=== PATIENT | male | born 1940 | race Caucasian/White ===

== ENCOUNTER 2018-06-06 10:06 | Emergency (ER) | payer OTHER, SELFPAY ==
[2018-06-06] VITALS (54 sets, daily range): BP systolic 95–162; BP diastolic 51–96; PULSE 49–79; RESP 8–24; TEMP 36.1–36.8; O2SAT 85–97
--- NOTE | 2018-06-06 12:06 | DI.RAD_ITS ---
SYMPTOMS/DIAGNOSIS: DYSPNEA CHEST X-RAY, PA AND LATERAL: Comparison is 10/29/17. The heart size and pulmonary vasculature are within normal limits. Sternal wires are in place. The lungs are free of infiltrates, effusions or pneumothoraces. Degenerative changes are seen in the spine. The lungs appear hyperinflated suggesting underlying COPD. There are again seen postsurgical changes of a right shoulder replacement. IMPRESSION: No acute pulmonary process.
--- NOTE | 2018-06-06 12:26 | ED.GENADUL_ITS ---
Discharge Plan Disposition Patient Disposition: HOME Condition: Fair Discharge Details Chief Complaint: SOB Clinical Impression: Chest pain Primary Care Provider: Sumit Florian ED Provider: Sofie Araujo Home Meds and New Rx's Prescriptions: Continue multivitamin [Daily Multi-Vitamin] 1 EACH tablet 1 tab PO DAILY RF: 0 aspirin [Ecotrin Low Strength] 81 MG tablet,delayed release (DR/EC) 81 tab PO DAILY RF: 0 nitroglycerin [Nitrostat] 0.4 MG tablet, sublingual 1 tab Sublingual PRN Qty: 25 RF: 4 mometasone [Elocon] 15 GM cream 1 paula Topical DAILY PRNQty: 1 RF: 0 atorvastatin 80 MG tablet 80 mg PO DAILY 90 Days Qty: 90 RF: 3 metoprolol tartrate 50 MG tablet 1 tab PO DAILY 90 Days Qty: 90 RF: 3 mometasone [Elocon] 15 GM cream 60 gm Topical QD PRN 90 Days Qty: 3 RF: 3 escitalopram oxalate [Lexapro] 10 MG tablet 1 tab PO DAILY 90 Days Qty: 90 RF: 3 vitamin B complex [Bal B-50] 1 EACH tablet 1 tab PO DAILY RF: 0 cholecalciferol (vitamin D3) 1,000 UNIT tablet 1,000 unit PO DAILY RF: 0 Discharge Instructions Instructions: Chest Pain (ED) Additional Instructions: Encourage hydration. Please take medication as previously prescribed. Please follow instructions given by respiratory care for Zio patch. Please follow-up with primary care this week for reevaluation. Primary care will contact you with appointment for the upcoming stress test. If you develop fevers/chills, chest pain, shortness of breath or other new/worsening symptoms please seek care urgently once again. Referrals: Sumit Florian [Primary Care Provider] - ([phone]) Discharge Data Discharge Date/Time-TO BE ENTERED AT DEPARTURE: 06/06/18 18:04 Medical Decision Making <Alessandro Brian NP - Last Filed: 06/07/18 09:43> Patient presenting to the emergency department for chief complaint of shortness of breath. Patient states that this occurred 2 times this morning 1 going upstairs and one with taking out the trash. Patient states that these episodes lasted only a couple minutes but were similar in nature to when he previously had to have a bypass done and cardiac catheterization. Patient denies any pain or discomfort, syncope, or irregular heartbeats. Physical exam is unremarkable and shows no cardiac findings, no pedal edema, no bruits, normal lung sounds throughout. There is concern for possible cardiac nature given patient's complaint and history so plan to perform labs, EKG, and chest x-ray. Review of initial EKG with Dr. Loida Caceres shows right bundle branch block but otherwise is nondiagnostic. Given that patient is asymptomatic I do not feel that there are any emergent interventions needed patient was given 2 additional chewable aspirin to have total dose of 324 taken today. Review of initial labs show a leukocytosis and elevation of BNP but negative troponin and otherwise nondiagnostic labs. Patient reassessed and has no change in symptoms and remains asymptomatic. Plan to check delta troponin and repeat EKG along with continue to monitor patient. Patient signed out to Kristi Araujo review of second troponin and repeat EKG with plan to have patient have stress testing performed within 72 hours if troponin is negative and close follow-up with primary care or cardiology. <REGI Floyd - Last Filed: 06/06/18 18:03> Care signed out to myself by Alessandro Brian NP with repeat troponin and EKG pending. Patient initially presented with chief complaint of shortness of breath which she reports lasted for approximately half a minute. During each episodes, patient was exertion, one being when going up the stairs and another with collecting garbage. Patient does have history of myocardial infarction, stent placement in 2010. 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 Does not have any follow-up with cardiology. Patient is not anticoagulated. He denies any palpitations. Did not have any chest pain. No nausea or vomiting. States he is otherwise been feeling well. Denies any fevers or chills. Repeat EKG was reviewed by Dr. Mantilla. Patient is noted to have a right bundle branch block but this is unchanged from previous, last was dated 2017. Patient does have multiple ectopic beats. No acute changes noted to suggest ischemic changes peer Repeat troponin remains stable at less than 0.02 Discussed these findings with the patient and his . I did reevaluate the patient. It was noted on the laboratory evaluation the patient did have elevated white count, however this is typical for the patient upon review of historical values. 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 BNP was also noted to be elevated at 818 and this is not been elevated previously. Patient has not been hypoxic, tachycardic. He has no calf tenderness, no lower extremity edema. Patient appears otherwise well at this time. He reports he is been completely asymptomatic since being here. Is requesting discharge at this time. I have ordered a Zio patch and have asked for a stress test to be completed in the next 72 hours. Patient will follow up with his primary care at the end of the week for reevaluation. He was given strict return precautions. Patient reports he lives locally and is able to return with any new or worsening symptoms. All of his questions and concerns were addressed and he is in agreement this plan. HPI <Alessandro Brian NP - Last Filed: 06/07/18 09:43> General Mode of arrival: ambulatory . Date/Time Provider Initiated Documentation: 06/06/18 10:25 . Limitations to Documentation: no limitations . Information obtained by: patient and RN notes reviewed . History of Present Illness 77 year old M presents to the emergency department with the chief complaint of difficulty breathing, described as moderate, Quality is described as other ( tightness), and is localized to the chest. 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 No relieving factors improve symptom(s), Patient notes no other symptoms.. Patient did receive the following treatments prior to arrival, none Related Data Home Medications Medication Instructions Recorded Confirmed aspirin [Ecotrin Low Strength] 81 tab PO DAILY tab-cap 11/30/12 06/06/18 multivitamin [Daily Multi-Vitamin] 1 tab PO DAILY 11/30/12 06/06/18 cholecalciferol (vitamin D3) 1,000 unit PO DAILY 07/03/14 06/06/18 vitamin B complex [Bal B-50] 1 tab PO DAILY 07/03/14 06/06/18 nitroglycerin [Nitrostat] 1 tab SUBLINGUAL PRN #25 tab-cap 08/18/16 06/06/18 mometasone [Elocon] 1 paula TOPICAL DAILY PRN #1 tube 02/23/17 06/06/18 atorvastatin 80 mg PO DAILY 90 Days #90 tab-cap 09/28/17 06/06/18 escitalopram oxalate [Lexapro] 1 tab PO DAILY 90 Days #90 tab-cap 09/28/1706/06 metoprolol tartrate 1 tab PO DAILY 90 Days #90 tab-cap 09/28/17 06/06/18 mometasone [Elocon] 60 gm TOPICAL QD PRN 90 Days #3 09/28/17 06/06/18 applic Previous Rx's Medication Instructions Recorded atorvastatin 80 mg PO DAILY 90 Days #90 tab-cap 09/28/17 escitalopram oxalate [Lexapro] 1 tab PO DAILY 90 Days #90 tab-cap 09/28/17 metoprolol tartrate 1 tab PO DAILY 90 Days #90 tab-cap 09/28/17 mometasone [Elocon] 60 gm TOPICAL QD PRN 90 Days #3 09/28/17 applic Allergies Allergy/AdvReac Type Severity Reaction Status Date / Time pneumococcal vaccine Allergy Intermediate Local Unverified 06/06/18 10:16 Rash, SOB General Stated Complaint: SOB ANN: 3 Review of Systems <Alessandro Brian NP - Last Filed: 06/07/18 09:43> Constitutional Denies body ache(s), Denies chills and Denies fever(s) Cardiovascular Denies chest pain, Denies syncope and Reports dyspnea Respiratory Reports dyspnea Gastrointestinal Denies abdominal pain, Denies nausea and Denies vomiting Integumentary/Breasts Denies rash Neurologic Denies confusion, Denies syncope and Denies sensory deficit Psychiatric Denies confusion Exam <Alessandro Brian NP - Last Filed: 06/07/18 09:43> Const General: cooperative, no acute distress and not ill appearing Orientation: alert, awake and oriented x3 HENMT Mouth: moist mucous membranes Resp Effort & Inspection: normal respiratory effort, able to speak in complete sentences and no respiratory distress Auscultation: clear to auscultation bilaterally Cardio Jugular venous pressure: no JVD Palpation: normal PMI Rate: regular rate Rhythm: regular rhythm Heart Sounds: S1 normal, S2 normal, normal S1 and S2, no click, no gallops, no murmurs and no rubs Bruits: no abdominal aortic bruits and no carotid bruits Pulses: radial pulses present bilaterally 2+ Skin General skin exam: no rashes or lesions noted Neuro General: alert, awake, oriented x3, moves all extremities and no focal motor deficits Sensory Exam: no sensory deficits noted Extrem General: no pedal edema Course <Alessandro Brian NP - Last Filed: 06/07/18 09:43> Vital Signs Temperature 36.1 C L 06/06/18 10:14 Pulse 52 L 06/06/18 10:14 Respiratory Rate 16 06/06/18 10:14 Blood Pressure 100/51 L 06/06/18 10:14 Pulse Oximetry 95 06/06/18 10:14 Temperature 36.8 C 06/06/18 11:45 Temperature Source Temporal Artery Scan 06/06/18 11:45 Pulse 57 L 06/06/18 11:45 Respiratory Rate 16 06/06/18 11:45 Respiratory Effort 06/06/18 10:14 Blood Pressure 119/72 06/06/18 11:45 Blood Pressure Position Sitting 06/06/18 10:14 Pulse Oximetry 94 L 06/06/18 11:45 Oxygen Delivery Method Room Air 06/06/18 11:45 Oxygen Flow Rate 0 06/06/18 11:45 Pain Level 0 06/06/18 11:45 Sign Out <Alessandro Brian NP - Last Filed: 06/07/18 09:43> Sign Out Data: Sign Out Comment: Signed out to Emma DELUNA pending serial troponin and EKG. Patient otherwise stable with no acute change in condition and denies any symptoms at this time. Plan to have patient stress test if serial troponin is negative and follow-up with primary care/cardiology Last updated by Alessandro Brian NP at 06/06/18 16:52
[2018-06-06 12:28] LABS: Abs Immature Grans 0.03 k/cumm (0.0-0.09); HCT 37.3 % (40.0-50.0); HGB 12.7 g/dL (13.5-17.5); Mean Corpuscular Hemoglobin 33.7 pg (27.0-33.0); Mean Corpuscular Volume 98.9 fL (80-95); Mean Platelet Volume 9.7 fL (8.0-11.0); Platelet Count 242 x1000/uL (130-400); RBC 3.77 m/cumm (4.50-6.00); RBC Distribution Width 14.7 % (11.8-14.1); White Blood Cell Count 15.84 k/cumm (4.4-10.8)
[2018-06-06 12:43] LABS: INR 1.1 (1.0-3.5); PTT Activated 23.5 sec (21.0-31.4); Prothrombin Time 10.9 sec (9.3-10.8)
[2018-06-06 12:53] LABS: ALT 25 U/L (12-78); AST 23 U/L (15-37); Albumin 3.3 g/dL (3.4-5.0); Alkaline Phosphatase 182 U/L (46-116); Anion Gap 6.3 mmol/L (3-11); BUN 23 mg/dL (7-18); Bilirubin, Total 1.7 mg/dL (0.2-1.0); CO2 28.7 mmol/L (21.0-32.0); CREATININE 1.16 mg/dL (0.70-1.30); Calcium 8.8 mg/dL (8.5-10.1); Chloride 103 mmol/L (98-107); Glucose 82 mg/dL (70-100); Magnesium 2.1 mg/dL (1.8-2.4); NT-proBNP 818 pg/mL; Potassium 4.2 mmol/L (3.5-5.1); Sodium 138 mmol/L (136-145)
[2018-06-06 12:56] LABS: Troponin I < 0.02 ng/mL (0.00-0.06)
[2018-06-06 13:06] LABS: Absolute Eosinophil Count 0.16 k/cumm (0.0-0.7); Absolute Lymphocyte Count 6.02 k/cumm (1.2-3.4); Absolute Monocyte Count 0.95 k/cumm (0.11-0.7); Absolute Neutrophil Count 8.71 k/cumm (1.2-6.7); Atypical Lymphocytes % 8; Diff Comment Manual Differential; RBC Morphology Normal
[2018-06-06 16:55] LABS: Troponin I < 0.02 ng/mL (0.00-0.06)
[2018-06-06] MEDS: Aspirin 81 MG CHEW 243 MG CH (17:17)
--- NOTE | 2018-06-29 10:24 | ZIOP_ITS ---
ZIO PATCH REPORT DATE OF DICTATION June 29, 2018 STUDY INDICATION Chest pain. REQUESTING PROVIDER Sumit Florian M.D. FINDINGS The patient was monitored for 13 days and 15 hours. The predominant underlying rhythm was sinus rhythm. Average heart rate 71 beats per minute, range 45 to 129 beats per minute. There was frequent ventricular ectopy, 10.2% PACs. There were 13 atrial runs, average heart rate 129 beats per minute, range 76 to 182 beats per minute. The longest episode lasted 41 seconds with an average heart rate of 106 beats per minute. There were occasional ventricular ectopy, 2.9% PVCs. There were 6 ventricular runs, average heart rat e 109 beats per minute, range 75 to 154 beats per minute. The longest episode lasted 6 beats with an average heart rate of 106 beats per minute. There was sinus bradycardia. There were no pauses greater than 3 seconds. There was no higher degree heart block. There were 10 patient events. All events correlated either with PACs or PVCs. FINAL INTERPRETATION Paroxysmal supraventricular tachycardia, asymptomatic. Frequent ectopy, at times symptomatic. Alfredo Lam M.D. KISHAN/tyler T - 06/29/2018
== END 2018-06-06 18:04 | disposition home or self-care (01) ==
PROVIDERS: Nurse Practitioner Family; Emergency Provider Physician Assistant; PCP Family Medicine
DX: R07.9 Chest pain, unspecified (principal); I25.10 Atherosclerotic heart disease of native coronary artery without angina pectoris; Z95.5 Presence of coronary angioplasty implant and graft; I10 Essential (primary) hypertension
CPT/HCPCS: 36415; 80053; 93005; 93225; 99284; 71046; 83735; 83880; 84484; 85025; 85610; 85730; 93010

== ENCOUNTER 2018-06-08 08:27 | Emergency (ER) | payer OTHER, SELFPAY ==
[2018-06-08] VITALS (26 sets, daily range): BP systolic 98–138; BP diastolic 63–77; PULSE 66–91; RESP 14–23; TEMP 36.5; O2SAT 88–95
--- NOTE | 2018-06-08 08:51 | DI.US_ITS ---
SYMPTOMS/DIAGNOSIS: RLE CALF PAIN DUPLEX VENOUS ULTRASOUND RIGHT LOWER EXTREMITY: Duplex evaluation of the deep venous system of the right lower extremity was performed according to the usual protocol. There is no evidence of deep venous thrombosis. Note is made of superficial thrombus in the greater saphenous vein extending from approximately 1.5 cm below the saphenofemoral junction to the distal portion of the vein. No bhakta's cyst identified. CONCLUSION: No DVT identified. Greater saphenous vein superficial thrombus noted which lies approximately 1.5 cm distal to the saphenofemoral junction.
--- NOTE | 2018-06-08 09:00 | ED.GENADUL_ITS ---
Discharge Plan Disposition Patient Disposition: HOME Condition: Improving Discharge Details Chief Complaint: GenMedical Clinical Impression: Saphenous vein thrombophlebitis Primary Care Provider: Sumit Florian ED Provider: Min Barba Home Meds and New Rx's Prescriptions: New apixaban [Eliquis] 5 mg tablet See Label Instructions .ROUTE .COMPLEX Qty: 30 RF: 0 Continue multivitamin [Daily Multi-Vitamin] 1 EACH tablet 1 tab PO DAILY RF: 0 aspirin [Ecotrin Low Strength] 81 MG tablet,delayed release (DR/EC) 81 tab PO DAILY RF: 0 nitroglycerin [Nitrostat] 0.4 MG tablet, sublingual 1 tab Sublingual PRN Qty: 25 RF: 4 mometasone [Elocon] 15 GM cream 1 paula Topical DAILY PRNQty: 1 RF: 0 atorvastatin 80 MG tablet 80 mg PO DAILY 90 Days Qty: 90 RF: 3 metoprolol tartrate 50 MG tablet 1 tab PO DAILY 90 Days Qty: 90 RF: 3 mometasone [Elocon] 15 GM cream 60 gm Topical QD PRN 90 Days Qty: 3 RF: 3 escitalopram oxalate [Lexapro] 10 MG tablet 1 tab PO DAILY 90 Days Qty: 90 RF: 3 vitamin B complex [Bal B-50] 1 EACH tablet 1 tab PO DAILY RF: 0 cholecalciferol (vitamin D3) 1,000 UNIT tablet 1,000 unit PO DAILY RF: 0 Discharge Instructions Instructions: Deep Venous Thrombosis (ED) Additional Instructions: You have a right leg blood clot in the Great Saphenous Vein just next to the SaphenoFemoral junction and may develop into a deep vein blood clot. Therefore, as we discussed, we will begin blood thinners. Please take the Eliquis as prescribed. Return if you develop chest pain, dark or bloody stools, bleeding in the urine, or any other acute concern. Please follow-up with Dr. Zayas as planned and you may need to discuss rescheduling stress test, which was canceled today, when you are therapeutic on the blood thinner. Medical Decision Making 77-year-old male presents from home with onset this morning of right medial calf discomfort, question swelling, concern for blood clot/DVT. He has no chest pain, no tachycardia, his exam is reassuring. He has been scheduled for outpatient stress test and is wearing a zio patch. Referred for usn of the lower extremity which reveals superficial thrombophlebitis at the proximal great saphenous vein, extending to the saphenofemoral junction. Therefore, I do feel he should be treated for DVT. Patient denies recent dark or bloody stools, no hematuria, no frequent falls. I feel he is a reasonable candidate for novel anticoagulant and will place on Eliquis. Case discussed with Dr Zayas's office with whom the patient has preplanned followup. He will need to reschedule stress test and today's stress was cancelled. Return precautions discussed with patient prior to discharge. HPI General Mode of arrival: ambulatory . Date/Time Provider Initiated Documentation: 06/08/18 08:28 . Limitations to Documentation: no limitations . Information obtained by: patient and family . History of Present Illness 77 year old M presents to the emergency department with the chief complaint of Right calf swelling, described as moderate, Quality is described as aching, and is localized to the right and lower extremity. Patient reports no radiation. and it has been constant. No relieving factors improve symptom(s) , No exacerbating factors reported . Patient notes no other symptoms.. HPI Narrative: Right lower extremity swelling at the anterior calf that the patient noticed this morning. He is scheduled for stress test today due to ongoing intermittent episodes of shortness of breath are primarily exertional. Is not of chest pain or palpitations. He has had no recent prolonged travel Related Data Home Medications Medication Instructions Recorded Confirmed aspirin [Ecotrin Low Strength] 81 tab PO DAILY tab-cap 11/30/12 06/08/18 multivitamin [Daily Multi-Vitamin] 1 tab PO DAILY 11/30/12 06/08/18 cholecalciferol (vitamin D3) 1,000 unit PO DAILY 07/03/14 06/08/18 vitamin B complex [Bal B-50] 1 tab PO DAILY 07/03/14 06/06/18 nitroglycerin [Nitrostat] 1 tab SUBLINGUAL PRN #25 tab-cap 08/18/16 06/06/18 mometasone [Elocon] 1 paula TOPICAL DAILY PRN #1 tube 02/23/17 06/08/18 atorvastatin 80 mg PO DAILY 90 Days #90 tab-cap 09/28/17 06/08/18 escitalopram oxalate [Lexapro] 1 tab PO DAILY 90 Days #90 tab-cap 09/28/1706/06 metoprolol tartrate 1 tab PO DAILY 90 Days #90 tab-cap 09/28/17 06/08/18 mometasone [Elocon] 60 gm TOPICAL QD PRN 90 Days #3 09/28/17 06/08/18 applic apixaban [Eliquis] See Label Instructions .ROUTE 06/08/18 .COMPLEX #30 tab Previous Rx's Medication Instructions Recorded atorvastatin 80 mg PO DAILY 90 Days #90 tab-cap 09/28/17 escitalopram oxalate [Lexapro] 1 tab PO DAILY 90 Days #90 tab-cap 09/28/17 metoprolol tartrate 1 tab PO DAILY 90 Days #90 tab-cap 09/28/17 mometasone [Elocon] 60 gm TOPICAL QD PRN 90 Days #3 09/28/17 applic apixaban [Eliquis] See Label Instructions .ROUTE 06/08/18 .COMPLEX #30 tab Allergies Allergy/AdvReac Type Severity Reaction Status Date / Time pneumococcal vaccine Allergy Intermediate Local Unverified 06/08/18 09:02 Rash, SOB General Stated Complaint: GenMedical ANN: 3 Review of Systems Review of Systems For systems reviewed and otherwise negative PFSH Family History Mother Cerebrovascular accident Father Heart disease Brother Neoplasm Medical History CAD (coronary artery disease) (Chronic) Social History Smoking/Tobacco Use Status: Former Tobacco Use Surgical History CARDIAC CATH Extraction of cataract (07/05/14) Repair of inguinal hernia Exam Narrative Exam Narrative: GEN: awake, alert, oriented 3. Pleasant, well groomed, interactive. HEAD: Normocephalic, atraumatic ENT: Mucous membranes moist, oropharynx unremarkable, External ear exam unremarkable EYES: PERRL, EOMI NECK: Full ROM, no KIEL, no menigismus CHEST/RESP: Nontender, clear to auscultation bilateral, no wheeze/rhonchi/rales CARDIOVASCULAR: RRR, no murmur, rub macrina. 2+ Rad pulse bilateral ABDOMEN: Soft, nontender, no mass. +Bowel sounds EXT: Full ROM, no rash. There is right medial calf focal tenderness overlying the medial gastroc and anterior plane. There is no posterior cords. No swelling or asymmetry. No edema Neuro: Grossly normal neurologic exam, conversant, interactive. Psych: Speech fluent, thoughts congruent, affect normal Course Vital Signs Temperature 36.5 C 06/08/18 08:35 Pulse 80 06/08/18 08:35 Respiratory Rate 14 06/08/18 08:35 Blood Pressure 138/63 06/08/18 08:35 Pulse Oximetry 95 06/08/18 08:35 Temperature 36.5 C 06/08/18 08:35 Pulse 80 06/08/18 08:35 Respiratory Rate 14 06/08/18 08:35 Blood Pressure 138/63 06/08/18 08:35 Blood Pressure Position Sitting 06/08/18 08:35 Pulse Oximetry 95 06/08/18 08:35 Oxygen Delivery Method Room Air 06/08/18 08:35 Oxygen Flow Rate 0 06/08/18 08:35 Pain Level 0 06/08/18 08:35 Comment 06/08/18 08:35
--- NOTE | 2018-06-08 11:05 | NUR.NOTE ---
Nursing Note: Patient states preference for using bathroom rather than using a urinal. 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
--- NOTE | 2018-06-08 12:23 | NUR.NOTE ---
Pt. is in ultrasound.
--- NOTE | 2018-06-08 13:29 | NUR.NOTE ---
In no distress, awaiting dispo.
== END 2018-06-08 13:43 | disposition home or self-care (01) ==
PROVIDERS: Emergency Provider Emergency Medicine; PCP Family Medicine
DX: I80.01 Phlebitis and thrombophlebitis of superficial vessels of right lower extremity (principal); I10 Essential (primary) hypertension
CPT/HCPCS: 99284; 93971

== ENCOUNTER 2018-06-15 00:08 | Outpatient (CLI) | payer OTHER, SELFPAY ==
--- NOTE | 2018-06-15 06:37 | MERGEMPI_ITS ---
*[facility]* *[facility]* [address] [place] [address] Myocardial Perfusion Imaging - SPECT Guzman protocol Date of study: 06/15/2018 *PATIENT PRESENTATION* Height: 177.8cm (70in) Blood Pressure: Weight: 98.2kg (216lb) BSA: 2.23m^2 Referring physician: Alfredo Lam Ordering physician: Sumit Florian Impressions: - Study suggests myocardial infarction, with minimal overall ischemia in the territory of the right coronary or the left circumflex coronary arteries. - Intermediate risk of cardiac events. Summary: 1. Myocardial perfusion imaging: There is a large sized, complete, fixed defect involving the inferior and inferolateral wall(s). This suggests large in the distribution of right coronary artery or the left circumflex coronary artery. Overall ischemia: minimal. 2. The calculated left ventricular ejection fraction after stress: 39%. LV global systolic function is moderately reduced. There is dyskinesis involving the inferior wall(s) of the left ventricle. 3. Stress ECG conclusions: The stress ECG is negative. Rare ventricular ectopy. 4. Baseline ECG: Normal sinus rhythm with right bundle branch block. There was an oldinferior myocardial infarction. Recommendations: Cardiology consult to discuss cardiac catheterization. This has been arranged for. Indication: R06.09. History: REASON FOR VISIT: PATIENT SEEN IN ER FOR COMPLAINTS OF EXERTIONAL DYSPNEA AND SCHEDULED FOR EXERCISE STRESS TEST ON 06/08/18. STRESS TEST NOT PERFORMED AT THIS TIME DUE TO CONCERNS BY PATIENT OF RIGHT MEDIAL CALF DISCOMFORT AND SWELLING. DIAGNOSED WITH SUPERFICIAL THROMBOPHLEBITIS OF RIGHT LEG IN EMERGENCY DEPARTMENT AND STARTED ON ELIQUIS BID. ZIOPATCH APPLIED IN ED BEFORE DISCARGE. MPI TREADMILL TEST 12/04/15: MYOCARDIAL INFARCTION IN THE TERRITORY OF THE RIGHT CORONARY ARTERY. LVEF 41%. STRESS ECG NEGATIVE, FREQUENT VENTRICULAR ECTOPY. PAST MEDICAL HISTORY: CORONARY ARTERY DISEASE. MYOCARDIAL INFARCTION 1998, S/P CARDIAC CATHETERIZATION. HYPERTENSION. HYPERLIPIDEMIA. FAMILY HISTORY: FATHER - HEART DISEASE. MOTHER - CEREBROVASCULAR ACCIDENT. SMOKING STATUS: FORMER, QUIT IN 1991. 32 PACK YEAR HISTORY. EXERCISE ROUTINE: NONE. Risk factors: Hypertension. Dyslipidemia. Cholesterol: 192mg/dl. HDL: 48mg/dl. LDL: 127mg/dl. Triglycerides: 86mg/dl. ALLERGIES: PNEUMOCOCCAL VACCINE. MEDICATIONS: ASPIRIN 81MG, DAILY. MULTIVITAMIN, DAILY. CHOLECALCIFEROL 1000 UNITS, DAILY. VITAMIN B COMPLEX 1 TAB, DAILY. NITROGLYCERIN SL, PRN. ATORVASTATIN 80MG, DAILY. ESCITALOPRAM OXALATE, DAILY. METOPROLOL TARTRATE, DAILY. APIXABAN 5 MG, DAILY. Imaging Technique: Protocol: Guzman protocol. Acquisition: Gated SPECT; 1 day - rest/stress. The patient was imaged in the supine position. Attenuation correction used. Isotope administration: - Rest. Tc[99m]-sestamibi. Dose: 9.9mCi. Injection time: 09:20 AM. Injection to stress time: 00:45. - Stress. Tc[99m]-sestamibi. Dose: 32mCi. Injection time: 11:25 AM. 1-2 min before end of exercise Baseline ECG: SINUS RHYTHM WITH RIGHT BUNDLE BRANCH BLOCK AND PREMATURE ATRIAL CONTRACTIONS. HEART RATE 64 BPM. SINUS RHYTHM, RIGHT BUNDLE BRANCH BLOCK, PREMATURE ATRIAL CONTRACTIONS. HEART RATE 64 BPM. Normal sinus rhythm with right bundle branch block. There was an oldinferior myocardial infarction. Stress protocol: + +---+ + + !Stage !HR !BP (mmHg) !Comments ! + +---+ + + !Baseline supine !64 !112/64 (80)! ! + +---+ + + !Baseline standing !69 !112/76 (88)! ! + +---+ + + !Stage I; 1.7mph, 10degrees; 3 min!109!122/78 (93)! ! + +---+ + + !Peak stress !124! ! ! + +---+ + + !Baseline !71 ! ! ! + +---+ + + !1 min !94 !122/82 (95)!Inject Mark.! + +---+ + + !3 min !87 !108/66 (80)! ! + +---+ + + !6 min !81 !102/62 (75)! ! + +---+ + + !1 min !---! !Inject Regadenoson.! + +---+ + + * Stress results: Maximal heart rate during stress was 124bpm (87% of maximal predicted heart rate). The maximal predicted heart rate was 143bpm. The rate-pressure product for the peak heart rate and blood pressure was 13335me Hg/min. Stress ECG: TREADMILL PORTION OF MPI STRESS TEST ENDED AT 4 MIN 49 SEC DUE TO EXERTIONAL DYSPNEA. APPROPRIATE HEART RATE AND BLOOD PRESSURE RESPONSE TO EXERCISE. MAX HEART RATE 124 BPM, 86% OF TARGET. PAC'S AND FREQUENT PVC'S NOTED DURING EXERCISE. NO ANGINA REPORTED. NO SIGNIFICANT ST SEGMENT CHANGES NOTED. AVERAGE FUNCTIONAL CAPACITY. PATIENT UNABLE TO MAINTAIN EXERCISE PACE OF SECOND STAGE OF GUZMAN PROTOCOL TO ALLOW FOR ISOTOPE INJECTION AND EXERCISE CONTINUATION FOR ONE MORE MINUTE ONCE TARGET HEART RATE WAS ACHIEVED. PATIENT REQUESTED TO STOP EXERCISE DUE TO DYSPNEA. TRANSITION PROTOCOL INITIATED. STRESS TEST ENDED IN 6 MIN WHEN ALL SYMPTOMS OF REGADENOSON INJECTION SUBSIDED. APPROPRIATE HEART RATE AND BLOOD PRESSURE RESPONSE TO REGADENOSON INJECTION. OCCASIONAL PAC'S AND FREQUENT PVCS NOTED DURING TESTING. NO ANGINA REPORTED. The stress ECG is negative. Rare ventricular ectopy. Myocardial perfusion: Imaging information: gated. The image quality was good. The left ventricle is mildly dilated. There is a large sized, complete, fixed defect involving the inferior and inferolateral wall(s). This suggests large in the distribution of right coronary artery or the left circumflex coronary artery. Overall ischemia: minimal. Ventricular Function (Wall Motion): The calculated left ventricular ejection fraction after stress: 39%. LV global systolic function is moderately reduced. There is dyskinesis involving the inferior wall(s) of the left ventricle. Study data: Alfredo Lam MD supervised and was readily available during the procedure. This study was interpreted by [facility]. Study status: Routine. Consent: The risks, benefits, and alternatives to the procedure were explained to the patient and informed consent was obtained. Procedure: Initial setup. A baseline ECG was recorded. Surface ECG leads and manual cuff blood pressure measurements were monitored. Heart sounds: Normal. Lung sounds: Normal. Treadmill exercise testing was performed using the Guzman protocol. Study completion: All catheters inserted during the procedure were removed. The patient tolerated the procedure well and was discharged from the lab. Discharge: The patient left the laboratory in stable condition. Birthdate: Patient birthdate: 1940. Sex: Gender: male. Study date: Study date: 06/15/2018. Study time: 06:37 AM. Signature Documentation: - The imaging portion of this study was interpreted by Nuclear Processing Engineer Alfredo Lam MD. - The imaging portion of this study was interpreted by Nuclear Radiologist Min Bower MD. - The Stress ECG portion of this study was interpreted by Alfredo Lam MD. Electronically signed by Alfredo Lam 06/15/2018 13:52
[2018-06-15] MEDS: Regadenoson 0.4 MG/5 ML SYR IVP (11:37)
== END 2018-06-15 00:28 ==
PROVIDERS: PCP Family Medicine; Visit Provider Family Medicine
DX: R06.09 Other forms of dyspnea (principal); R94.30 Abnormal result of cardiovascular function study, unspecified; I25.2 Old myocardial infarction; I25.10 Atherosclerotic heart disease of native coronary artery without angina pectoris; Z95.5 Presence of coronary angioplasty implant and graft; I10 Essential (primary) hypertension; E78.5 Hyperlipidemia, unspecified
CPT/HCPCS: 78452; 93016; 93018; 93017; J2785

== ENCOUNTER 2018-06-20 10:22 | Inpatient (IN) | payer OTHER, SELFPAY ==
[2018-06-20] VITALS (94 sets, daily range): BP systolic 99–143; BP diastolic 45–82; PULSE 52–83; RESP 12–24; TEMP 36.1–37.1; O2SAT 89–98
--- NOTE | 2018-06-20 10:39 | ED.GENADUL_ITS ---
Discharge Plan Discharge Details Chief Complaint: SOB Primary Care Provider: Sumit Florian ED Provider: Loida Caceres Home Meds and New Rx's Prescriptions: No Action multivitamin [Daily Multi-Vitamin] 1 EACH tablet 1 tab PO DAILY RF: 0 aspirin [Ecotrin Low Strength] 81 MG tablet,delayed release (DR/EC) 81 tab PO DAILY RF: 0 nitroglycerin [Nitrostat] 0.4 MG tablet, sublingual 1 tab Sublingual PRN Qty: 25 RF: 4 mometasone [Elocon] 15 GM cream 1 paula Topical DAILY PRNQty: 1 RF: 0 atorvastatin 80 MG tablet 80 mg PO DAILY 90 Days Qty: 90 RF: 3 metoprolol tartrate 50 MG tablet 1 tab PO DAILY 90 Days Qty: 90 RF: 3 mometasone [Elocon] 15 GM cream 60 gm Topical QD PRN 90 Days Qty: 3 RF: 3 escitalopram oxalate [Lexapro] 10 MG tablet 1 tab PO DAILY 90 Days Qty: 90 RF: 3 apixaban [Eliquis] 5 mg tablet 5 mg .ROUTE BID Qty: 60 RF: 0 vitamin B complex [Bal B-50] 1 EACH tablet 1 tab PO DAILY RF: 0 cholecalciferol (vitamin D3) 1,000 UNIT tablet 1,000 unit PO DAILY RF: 0 Medical Decision Making Handy Rose is a 77-year-old man with history of CABG, hypertension, hyperlipidemia, CLL, recently diagnosed with DVT presenting to the emergency department with exertional shortness of breath. No orthostatic component. On exam he is well and nontoxic appearing with a normal work of breathing. Bibasilar rales on auscultation without other lung findings. No edema or tenderness to the lower extremities. Concern for ACS versus PE versus CHF versus other. Doubt occult pneumonia, flu. Exam/history not consistent with acute aortic pathology, sepsis. Plan for EKG, labs, CT chest pending normal creatinine, telemetry. Will monitor and reassess. Chest shows bilateral pulmonary embolism, pulmonary nodules and hepatic lesions concerning for metastatic dz. call Dr. Sorenson for admission, who requested consult from [facility] for possible transfer. Images sent to [facility]. I discussed the patient with Dr. Leigh of pulmonology/critical care at [facility], who will recommend the patient be started on Lovenox twice daily, that Eliquis be discontinued, and that patient have echo for risk stratification ; patient could then be discharged to home for follow-up with hematology. Results relayed to the patient. Plan for Lovenox and admission. Clinical Impresson: Bilateral PEs Disposition: [facility] inpatient Medical Records Medical records reviewed: Yes I reviewed the patient's medical records. Imaging Data Radiologic Study: Attestation: I personally reviewed and interpreted this imaging study as follows: Radiologist's impression: CHEST CT FOR PULMONARY EMBOLISM: CT angiography was performed with multi slice acquisition and multi planar and 3D reconstruction. The pulmonary arteries are well opacified with IV contrast. Filling defects are seen in right lower lobe pulmonary artery branches, most of which appear partially occluding. Small filling defects are seen in right upper lobe, as well as right middle lobe pulmonary artery branches. A small filling defect is seen in a left upper lobe pulmonary artery branch. The patient is status post CABG. The aorta appears intact. There are no pleural or pericardial effusions. There are multiple small bilateral pulmonary nodules, in both upper and lower lobes. The largest are in the right lower lobe posteriorly. There is no evidence of pulmonary infarct or acute infiltrates. There are mild underlying emphysematous changes. Multiple low density lesions are noted in the liver. No adenopathy is seen. No new destructive bony lesions are identified. IMPRESSION: Partially occluding pulmonary emboli in both upper and lower lobes. Multiple pulmonary nodules as well as abnormal liver lucencies, suspicious for metastatic disease. Lab Data Lab results reviewed: Yes I reviewed the patient's lab results. 06/20/18 11:15 Nasopharynx Influenza Types A,B Antigen - Final Laboratory Tests Range/Units 06/20/18 06/20/18 06/20/18 11:05 11:05 11:05 WBC (4.4-10.8) k/cumm 21.81 H RBC (4.50-6.00) m/cumm 3.01 L Hgb (13.5-17.5) g/dL 10.2 L Hct (40.0-50.0) % 30.3 L MCV (80-95) fL 100.7 H MCH (27.0-33.0) pg 33.9 H MCHC (32.0-36.0) g/dL 33.7 RDW (11.8-14.1) % 17.1 H Plt Count (130-400) x1000/uL 227 MPV (8.0-11.0) fL 10.0 Immature Gran % 0.4 Neutrophils % 43.0 Lymphocytes % 50.2 Monocytes % 5.7 Eosinophils % 0.4 Basophils % 0.3 Absolute Neutrophils (1.2-6.7) k/cumm 9.38 H Absolute Lymphocytes (1.2-3.4) k/cumm 10.95 H Absolute Monocytes (0.11-0.7) k/cumm 1.24 H Absolute Eosinophils (0.0-0.7) k/cumm 0.09 Absolute Basophils (0.0-0.2) k/cumm 0.07 Differential Comment Agrees w/ instrument RBC Morphology See below Polychromasia Present Anisocytosis 1+ Macrocytosis 2+ PT (9.3-10.8) sec 11.2 H INR (1.0-3.5) 1.1 APTT Cancelled Sodium (136-145) mmol/L 136 Potassium (3.5-5.1) mmol/L 3.9 Chloride (98-107) mmol/L 101 Carbon Dioxide (21.0-32.0) mmol/L 25.4 Anion Gap (3-11) mmol/L 9.6 BUN (7-18) mg/dL 29 H Creatinine (0.70-1.30) mg/dL 1.22 Estimated GFR/1.73 m2 (mL/min/1.73m2) 57.60 Glucose (70-100) mg/dL 94 Calcium (8.5-10.1) mg/dL 8.7 Total Bilirubin (0.2-1.0) mg/dL 4.4 H AST (15-37) U/L 50 H ALT (12-78) U/L 38 Alkaline Phosphatase (46-116) U/L 241 H Troponin I (0.00-0.06) ng/mL 0.13 H NT-Pro-B Natriuret Pep ( - 299) pg/mL 490 H Total Protein (6.4-8.2) g/dL 7.1 Albumin (3.4-5.0) g/dL 3.4 Urine Color (Yellow) Urine Clarity Urine pH (5-8) Ur Specific [place] (1.005-1.025) Urine Protein (Negative) mg/dL Urine Ketones (Negative) mg/dL Urine Blood (Negative) Urine Nitrite (Negative) Urine Bilirubin (Negative) Urine Urobilinogen (Up TO 0.2) EU/dL Ur Leukocyte Esterase (Negative) Urine RBC (0-2) Urine WBC (0-5) HPF Ur Epithelial Cells (Negative) HPF Urine Crystals (Negative) HPF Urine Bacteria (Negative) HPF Urine Casts (Negative) LPF Urine Mucus (Negative) Ur Culture Indicated? Urine Glucose (Negative) mg/dL Range/Units 06/20/18 06/20/18 14:05 14:10 WBC (4.4-10.8) k/cumm RBC (4.50-6.00) m/cumm Hgb (13.5-17.5) g/dL Hct (40.0-50.0) % MCV (80-95) fL MCH (27.0-33.0) pg MCHC (32.0-36.0) g/dL RDW (11.8-14.1) % Plt Count (130-400) x1000/uL MPV (8.0-11.0) fL Immature Gran % Neutrophils % Lymphocytes % Monocytes % Eosinophils % Basophils % Absolute Neutrophils (1.2-6.7) k/cumm Absolute Lymphocytes (1.2-3.4) k/cumm Absolute Monocytes (0.11-0.7) k/cumm Absolute Eosinophils (0.0-0.7) k/cumm Absolute Basophils (0.0-0.2) k/cumm Differential Comment RBC Morphology Polychromasia Anisocytosis Macrocytosis PT (9.3-10.8) sec INR (1.0-3.5) APTT Sodium (136-145) mmol/L Potassium (3.5-5.1) mmol/L Chloride (98-107) mmol/L Carbon Dioxide (21.0-32.0) mmol/L Anion Gap (3-11) mmol/L BUN (7-18) mg/dL Creatinine (0.70-1.30) mg/dL Estimated GFR/1.73 m2 (mL/min/1.73m2) Glucose (70-100) mg/dL Calcium (8.5-10.1) mg/dL Total Bilirubin (0.2-1.0) mg/dL AST (15-37) U/L ALT (12-78) U/L Alkaline Phosphatase (46-116) U/L Troponin I (0.00-0.06) ng/mL 0.10 H NT-Pro-B Natriuret Pep ( - 299) pg/mL Total Protein (6.4-8.2) g/dL Albumin (3.4-5.0) g/dL Urine Color (Yellow) Yellow Urine Clarity Clear Urine pH (5-8) 6.5 Ur Specific [place] (1.005-1.025) 1.010 Urine Protein (Negative) mg/dL Negative Urine Ketones (Negative) mg/dL Negative Urine Blood (Negative) Trace-intact H Urine Nitrite (Negative) Negative Urine Bilirubin (Negative) Negative Urine Urobilinogen (Up TO 0.2) EU/dL >=8.0 Ur Leukocyte Esterase (Negative) Negative Urine RBC (0-2) 3-5 H Urine WBC (0-5) HPF 0-2 Ur Epithelial Cells (Negative) HPF Rare Urine Crystals (Negative) HPF Negative Urine Bacteria (Negative) HPF Rare Urine Casts (Negative) LPF Negative Urine Mucus (Negative) Trace Ur Culture Indicated? No Urine Glucose (Negative) mg/dL Negative ECG Data Attestation: I personally reviewed and interpreted this ECG (s) as follows: Interpretation: EKG shows normal sinus rhythm at 65 with frequent PACs, right bundle branch block, inferior Q waves, precordial ST changes, appears unchanged from prior, though prior EKGs this month with significant artifact. HPI General Mode of arrival: ambulatory . Date/Time Provider Initiated Documentation: 06/20/18 10:36 . Limitations to Documentation: no limitations . Information obtained by: patient, RN notes reviewed and old records reviewed . HPI Narrative: Handy Rose is a 77-year-old man with history of coronary artery disease status post CABG, hypertension, hyperlipidemia, CLL presenting to the emergency department shortness of breath. Patient was seen here on for similar complaint of episodic shortness of breath worse with exertion. At that time he had no CT of his chest and was discharged home. Patient was seen on 06/08 for calf swelling, was found to have DVT, and was started on Eliquis. Patient reports that he has been feeling reasonably well since that time, and then this morning again had several episodes of shortness of breath. Patient reports that shortness of breath is a sensation that he cannot catch his breath, it last for 3-4 minutes at a time and begins during exertion such as climbing the stairs. Patient reports that when he is resting he has no shortness of breath at all. He does note that he has also felt some mild lightheadedness today without vertiginous component. He denies having any pain currently or earlier in the day. No fevers, no cough, no nausea/vomiting/ diarrhea, no numbness, no tingling, no weakness. No recent travel. Has been eating and drinking as usual. Has been taking Eliquis as prescribed. Related Data Home Medications Medication Instructions Recorded Confirmed aspirin [Ecotrin Low Strength] 81 tab PO DAILY tab-cap 11/30/12 06/20/18 multivitamin [Daily Multi-Vitamin] 1 tab PO DAILY 11/30/12 06/20/18 cholecalciferol (vitamin D3) 1,000 unit PO DAILY 07/03/14 06/20/18 vitamin B complex [Bal B-50] 1 tab PO DAILY 07/03/14 06/20/18 nitroglycerin [Nitrostat] 1 tab SUBLINGUAL PRN #25 tab-cap 08/18/16 06/20/18 mometasone [Elocon] 1 paula TOPICAL DAILY PRN #1 tube 02/23/17 06/20/18 atorvastatin 80 mg PO DAILY 90 Days #90 tab-cap 09/28/17 06/20/18 escitalopram oxalate [Lexapro] 1 tab PO DAILY 90 Days #90 tab-cap 09/28/1706/20 metoprolol tartrate 1 tab PO DAILY 90 Days #90 tab-cap 09/28/17 06/20/18 mometasone [Elocon] 60 gm TOPICAL QD PRN 90 Days #3 09/28/17 06/20/18 applic apixaban 5 mg tablet 5 mg .ROUTE BID #60 tab 06/17/18 06/20/18 Previous Rx's Medication Instructions Recorded atorvastatin 80 mg PO DAILY 90 Days #90 tab-cap 09/28/17 escitalopram oxalate [Lexapro] 1 tab PO DAILY 90 Days #90 tab-cap 09/28/17 metoprolol tartrate 1 tab PO DAILY 90 Days #90 tab-cap 09/28/17 mometasone [Elocon] 60 gm TOPICAL QD PRN 90 Days #3 09/28/17 applic apixaban 5 mg tablet 5 mg .ROUTE BID #60 tab 06/17/18 Allergies Allergy/AdvReac Type Severity Reaction Status Date / Time pneumococcal vaccine Allergy Intermediate Local Unverified 06/20/18 10:45 Rash, SOB General ANN: 3 Review of Systems Review of Systems Constitutional: denies fevers Eyes: denies eye pain ENT: denies facial pain, dental pain, sore throat Cardiovascular: denies chest pain, edema Respiratory: denies cough, reports shortness of breath GI: denies abdominal pain, vomiting, diarrhea : denies flank pain MSK: denies back pain, neck pain, arthralgias, myalgias Skin: denies rash Neuro: denies headaches, weakness, vertigo, numbness, tingling, weakness, reports mild lightheadedness Exam Narrative Exam Narrative: Constitutional: well and [id number], pleasant, conversing normally HENT: head atraumatic, normocephalic normal inspection, mucous membranes moist Eyes: conjunctiva normal, sclera normal, pupils 3mm b/l Neck: no stridor, normal ROM, trachea midline Chest: normal inspection Resp: normal work of breathing, mild bibasilar Rales, no rhonchi, no wheeze Cardio: normal rate, normal rhythm, no murmur appreciated GI: abdomen soft, non-tender, non-distended Back: normal inspection, no rash Skin: warm, dry, normal color, no rash Neuro: alert, not altered, grossly non-focal, normal tone Ext: no edema, no posterior calf tenderness to palpation Psych: normal mood, normal affect, normal behavior
[2018-06-20 11:15] LABS: Abs Immature Grans 0.08 k/cumm (0.0-0.09); Absolute Monocyte Count 1.24 k/cumm (0.11-0.7); Basophils % 0.3; Eosinophils % 0.4; HCT 30.3 % (40.0-50.0); HGB 10.2 g/dL (13.5-17.5); Immature Grans % 0.4; Lymphocytes % 50.2; Mean Corp. HGB Concentration 33.7 g/dL (32.0-36.0); Mean Corpuscular Hemoglobin 33.9 pg (27.0-33.0); Mean Corpuscular Volume 100.7 fL (80-95); Monocytes % 5.7; Platelet Count 227 x1000/uL (130-400); RBC 3.01 m/cumm (4.50-6.00); RBC Distribution Width 17.1 % (11.8-14.1); White Blood Cell Count 21.81 k/cumm (4.4-10.8)
[2018-06-20 11:16] LABS: Absolute Basophil Count 0.07 k/cumm (0.0-0.2); Absolute Eosinophil Count 0.09 k/cumm (0.0-0.7); Absolute Lymphocyte Count 10.95 k/cumm (1.2-3.4); Absolute Neutrophil Count 9.38 k/cumm (1.2-6.7)
[2018-06-20 11:34] LABS: ALT 38 U/L (12-78); AST 50 U/L (15-37); Albumin 3.4 g/dL (3.4-5.0); Alkaline Phosphatase 241 U/L (46-116); Anion Gap 9.6 mmol/L (3-11); BUN 29 mg/dL (7-18); Bilirubin, Total 4.4 mg/dL (0.2-1.0); CO2 25.4 mmol/L (21.0-32.0); CREATININE 1.22 mg/dL (0.70-1.30); Calcium 8.7 mg/dL (8.5-10.1); Chloride 101 mmol/L (98-107); Glucose 94 mg/dL (70-100); NT-proBNP 490 pg/mL; Potassium 3.9 mmol/L (3.5-5.1); Sodium 136 mmol/L (136-145); Total Protein 7.1 g/dL (6.4-8.2)
[2018-06-20 11:37] LABS: Anisocytosis 1+; Diff Comment Agrees w/ Instrument; Macrocytosis 2+; Polychromasia Present
[2018-06-20 11:40] LABS: Troponin I 0.13 ng/mL (0.00-0.06)
--- NOTE | 2018-06-20 12:15 | DI.CT_ITS ---
SYMPTOMS/DIAGNOSIS: SHORTNESS OF BREATH, ON ELIQUIS FOR DVT, + TROP CHEST CT FOR PULMONARY EMBOLISM: CT angiography was performed with multi slice acquisition and multi planar and 3D reconstruction. The pulmonary arteries are well opacified with IV contrast. Filling defects are seen in right lower lobe pulmonary artery branches, most of which appear partially occluding. Small filling defects are seen in right upper lobe, as well as right middle lobe pulmonary artery branches. A small filling defect is seen in a left upper lobe pulmonary artery branch. The patient is status post CABG. The aorta appears intact. There are no pleural or pericardial effusions. There are multiple small bilateral pulmonary nodules, in both upper and lower lobes. The largest are in the right lower lobe posteriorly. There is no evidence of pulmonary infarct or acute infiltrates. There are mild underlying emphysematous changes. Multiple low density lesions are noted in the liver. No adenopathy is seen. No new destructive bony lesions are identified. IMPRESSION: Partially occluding pulmonary emboli in both upper and lower lobes. Multiple pulmonary nodules as well as abnormal liver lucencies, suspicious for metastatic disease.
[2018-06-20] MEDS: Omnipaque 350 MG/ML 100 ML BTL IJ (12:48)
[2018-06-20 14:18] LABS: Bilirubin Negative (Negative); Blood Trace-intact (Negative); Clarity Clear; Glucose Negative (Negative); Ketones Negative (Negative); Leukocyte Esterase Negative (Negative); Nitrite Negative (Negative); Urobilinogen >=8.0 EU/dL (Up TO 0.2); pH 6.5 (5-8)
[2018-06-20 14:31] LABS: Epithelial Cells Rare HPF (Negative); WBC 0-2 HPF (0-5)
[2018-06-20 14:32] LABS: Bacteria Rare HPF (Negative); C & S Indicated? No; Casts Negative LPF (Negative); Crystals Negative HPF (Negative); Mucus Trace (Negative)
[2018-06-20 15:48] LABS: Prothrombin Time 11.2 sec (9.3-10.8)
[2018-06-20 15:58] LABS: INR 1.1 (1.0-3.5)
--- NOTE | 2018-06-20 16:38 | W.PM.HP.N ---
Date of service: 06/20/18 Time of Service: 16:38 Assessment and Plan (1) Benign hypertension: Current visit: No Status: Active Acceptable BP while in the ER. Currently only taking a BB. Will also ensure he is on a heart healthy diet. Continue to monitor BP regularly and consider addition of anti-hypertensives if BP becomes consistently elevated. (2) Hyperlipidemia: Current visit: No Status: Active Continue high intensity statin. Heart healthy diet. (3) Pulmonary embolism: Current visit: Yes Status: Acute Developed PE while on Apixaban, although has been experiencing intermittent SOB for several weeks. Initially thought his breathing difficulty was related to ischemic heart disease although [place] [facility] [place] an upcoming appt with cardiology on here at [facility]. Findings on CT imaging suggest potential malignancy with METS to the Liver, although will need outpatient biopsy to confirm. In the setting of potential malignancy will plan to discontinue apixaban and initiate therapeutic lovenox BID. Nursing to perform lovenox teaching. Will also need close follow up with [place] [facility] Will plan to obtain an ECHO to evaluate for RV strain. Will also cycle troponins, although these may be elevated with PE. 12 lead non-ischemic in appearance. I suspect his ongoing exertional SOB is related to PE and not cardiac ischemia. (4) Hx of deep venous thrombosis: Current visit: Yes Status: Acute Plan as above (5) Lung nodules: Current visit: Yes Status: Acute Concerning for malignancy. Will need close follow up with oncology as an outpatient for biopsy. CM will work on the referral process. Will need this to be completed on a somewhat urgent basis. (6) Hepatic lesion: Current visit: Yes Status: Acute History of Present Illness Chief Complaint: SOB Narrative: Hanyd is a pleasant 77-year-old gentleman with past medical history significant for coronary artery disease status post CABG (2010), hypertension, hyperlipidemia, CLL, recently diagnosed DVT who presents to the emergency department today with complaints of ongoing exertional shortness of breath. Initially he suspected that his intermittent shortness of breath was his angina equivalent, however symptoms suddenly became worse so he presented to the ER for further evaluation. Was seen in the emergency department on 06/08/2018 with complaints of right medial calf discomfort and swelling. Lower extremity ultrasound showed no DVT, but did suggest a greater saphenous vein superficial thrombus which lied approximately 1.5 cm distal to this saphenofemoral junction. He was started on Eliquis and discharged home. Overall had been feeling well until this morning when he had several concurrent episodes of shortness of breath. This mostly occurs with exertion, specifically climbing up his stairs. In the emergency department he had a nonischemic appearing twelve-lead EKG. Blood work was notable for leukocytosis at his baseline with known history of CLL. Chest CTA shows bilateral pulmonary embolism, pulmonary nodules and hepatic lesions concerning for metastatic disease. Dr. Caceres attempted to transfer patient to [facility] and spoke with Dr. Leigh of pulmonology/critical care who recommended the patient be admitted here at [facility] and started on therapeutic Lovenox twice daily as DOACs or not approved in patients with malignancy. Review of Systems Review of Systems 10 point ROS obtained with pertinent positives noted in HPI, otherwise negative PFSH Family History Mother Cerebrovascular accident Father Heart disease Brother Neoplasm Medical History CAD (coronary artery disease) (Chronic) Social History Smoking/Tobacco Use Status: Former Tobacco Use Surgical History CARDIAC CATH Extraction of cataract (07/05/14) Repair of inguinal hernia Meds Home Medications Medication Instructions Recorded Confirmed Type aspirin [Ecotrin Low Strength] 81 tab PO DAILY tab-cap 11/30/12 06/20/18 History multivitamin [Daily Multi-Vitamin] 1 tab PO DAILY 11/30/12 06/20/18 History cholecalciferol (vitamin D3) 1,000 unit PO DAILY 07/03/14 06/20/18 History vitamin B complex [Bal B-50] 1 tab PO DAILY 07/03/14 06/20/18 History nitroglycerin [Nitrostat] 1 tab SUBLINGUAL PRN #25 tab-cap 08/18/16 06/20/18 History mometasone [Elocon] 1 paula TOPICAL DAILY PRN #1 tube 02/23/17 06/20/18 History atorvastatin 80 mg PO DAILY 90 Days #90 tab-cap 09/28/17 06/20/18 Rx escitalopram oxalate [Lexapro] 1 tab PO DAILY 90 Days #90 tab-cap 09/28/17 06/20/18 Rx metoprolol tartrate 1 tab PO DAILY 90 Days #90 tab-cap 09/28/17 06/20/18 Rx mometasone [Elocon] 60 gm TOPICAL QD PRN 90 Days #3 09/28/17 06/20/18 Rx applic apixaban 5 mg tablet 5 mg .ROUTE BID #60 tab 06/17/18 06/20/18 Rx Allergies Allergy/AdvReac Type Severity Reaction Status Date / Time pneumococcal vaccine Allergy Intermediate Local Unverified 06/20/18 10:45 Rash, SOB Exam Narrative Exam Narrative: General: 77 yo obese male. Well developed and well nourished. No acute distress. A/Ox3. Pleasant and cooperative. HEENT: Normocephalic, Atraumatic. Conjunctiva clear, sclera non-icteric. PERRL. EOMI. Moist mucous membranes, oropharynx clear. Neck supple, no JVD, thyromegaly or lymphadenopathy. Cardiovascular: Regular rate and rhythm, S1S2, no S3 or S4. No murmur, rub, gallop. Respiratory: Chest expansion symmetrical, respirations unlabored. Lungs diminished, no adventitious breath sounds appreciated. GI: Abdomen round, soft, non-tender to palpation. Normoactive bowel sounds in all 4 quadrants. No hepatosplenomegaly or prominent masses. : deferred Extremities: Lower extremities without deformity or edema. Areas of excoriation noted to bilateral shins consistent with eczema Neurological: non-focal. CN 2-12 grossly intact. Psychiatric: pleasant and cooperative. Speech clear and articulate. Mood and affect normal, tearful at times. Results Labs : 06/20/18 11:05 06/20/18 11:05 Laboratory Results - last 24 hr 06/20/18 06/20/18 06/20/18 11:05 11:05 11:05 WBC 21.81 H RBC 3.01 L Hgb 10.2 L Hct 30.3 L MCV 100.7 H MCH 33.9 H MCHC 33.7 RDW 17.1 H Plt Count 227 MPV 10.0 Immature Gran % 0.4 Neutrophils % 43.0 Lymphocytes % 50.2 Monocytes % 5.7 Eosinophils % 0.4 Basophils % 0.3 Absolute Neutrophils 9.38 H Absolute Lymphocytes 10.95 H Absolute Monocytes 1.24 H Absolute Eosinophils 0.09 Absolute Basophils 0.07 Differential Comment Agrees w/ instrument RBC Morphology See below Polychromasia Present Anisocytosis 1+ Macrocytosis 2+ PT 11.2 H INR 1.1 APTT Cancelled Sodium 136 Potassium 3.9 Chloride 101 Carbon Dioxide 25.4 Anion Gap 9.6 BUN 29 H Creatinine 1.22 Estimated GFR/1.73 m2 57.60 Glucose 94 Calcium 8.7 Total Bilirubin 4.4 H AST 50 H ALT 38 Alkaline Phosphatase 241 H Troponin I 0.13 H NT-Pro-B Natriuret Pep 490 H Total Protein 7.1 Albumin 3.4 Urine Color Urine Clarity Urine pH Ur Specific [place] Urine Protein Urine Ketones Urine Blood Urine Nitrite Urine Bilirubin Urine Urobilinogen Ur Leukocyte Esterase Urine RBC Urine WBC Ur Epithelial Cells Urine Crystals Urine Bacteria Urine Casts Urine Mucus Ur Culture Indicated? Urine Glucose 06/20/18 06/20/18 14:05 14:10 WBC RBC Hgb Hct MCV MCH MCHC RDW Plt Count MPV Immature Gran % Neutrophils % Lymphocytes % Monocytes % Eosinophils % Basophils % Absolute Neutrophils Absolute Lymphocytes Absolute Monocytes Absolute Eosinophils Absolute Basophils Differential Comment RBC Morphology Polychromasia Anisocytosis Macrocytosis PT INR APTT Sodium Potassium Chloride Carbon Dioxide Anion Gap BUN Creatinine Estimated GFR/1.73 m2 Glucose Calcium Total Bilirubin AST ALT Alkaline Phosphatase Troponin I 0.10 H NT-Pro-B Natriuret Pep Total Protein Albumin Urine Color Yellow Urine Clarity Clear Urine pH 6.5 Ur Specific [place] 1.010 Urine Protein Negative Urine Ketones Negative Urine Blood Trace-intact H Urine Nitrite Negative Urine Bilirubin Negative Urine Urobilinogen >=8.0 Ur Leukocyte Esterase Negative Urine RBC 3-5 H Urine WBC 0-2 Ur Epithelial Cells Rare Urine Crystals Negative Urine Bacteria Rare Urine Casts Negative Urine Mucus Trace Ur Culture Indicated? No Urine Glucose Negative Last Vital Signs Temp 37 C 06/20/18 13:39 Pulse 63 06/20/18 14:01 Resp 18 06/20/18 14:01 BP 107/61 06/20/18 14:01 Pulse Ox 94 L 06/20/18 14:01
[2018-06-20] MEDS: Enoxaparin 100 MG/ML SYR SC (16:54)
--- NOTE | 2018-06-20 16:56 | HPE_ITS ---
Date of service: 06/20/18 Time of Service: 16:38 Assessment and Plan (1) Benign hypertension: Current visit: No Status: Active Acceptable BP while in the ER. Currently only taking a BB. Will also ensure he is on a heart healthy diet. Continue to monitor BP regularly and consider addition of anti-hypertensives if BP becomes consistently elevated. (2) Hyperlipidemia: Current visit: No Status: Active Continue high intensity statin. Heart healthy diet. (3) Pulmonary embolism: Current visit: Yes Status: Acute Developed PE while on Apixaban, although has been experiencing intermittent SOB for several weeks. Initially thought his breathing difficulty was related to ischemic heart disease although he was revascularized in 2010 at [facility] [place]. Has an upcoming appt with cardiology on here at [facility]. Findings on CT imaging suggest potential malignancy with METS to the Liver, although will need outpatient biopsy to confirm. In the setting of potential malignancy will plan to discontinue apixaban and initiate therapeutic lovenox BID. Nursing to perform lovenox teaching. Will also need close follow up with heme/onc at [facility] [place]. Will plan to obtain an ECHO to evaluate for RV strain. Will also cycle troponins, although these may be elevated with PE. 12 lead non-ischemic in appearance. I suspect his ongoing exertional SOB is related to PE and not cardiac ischemia. (4) Hx of deep venous thrombosis: Current visit: Yes Status: Acute Plan as above (5) Lung nodules: Current visit: Yes Status: Acute Concerning for malignancy. Will need close follow up with oncology as an outpatient for biopsy. CM will work on the referral process. Will need this to be completed on a somewhat urgent basis. (6) Hepatic lesion: Current visit: Yes Status: Acute History of Present Illness Chief Complaint: SOB Narrative: Handy is a pleasant 77-year-old gentleman with past medical history significant for coronary artery disease status post CABG (2010), hypertension, hyperlipidemia, CLL, recently diagnosed DVT who presents to the emergency department today with complaints of ongoing exertional shortness of breath. Initially he suspected that his intermittent shortness of breath was his angina equivalent, however symptoms suddenly became worse so he presented to the ER for further evaluation. Was seen in the emergency department on 06/08/2018 with complaints of right medial calf discomfort and swelling. Lower extremity ultrasound showed no DVT, but did suggest a greater saphenous vein superficial thrombus which lied approximately 1.5 cm distal to this saphenofemoral junction. He was started on Eliquis and discharged home. Overall had been feeling well until this morning when he had several concurrent episodes of shortness of breath. This mostly occurs with exertion, specifically climbing up his stairs. In the emergency department he had a nonischemic appearing twelve-lead EKG. Blood work was notable for leukocytosis at his baseline with known history of CLL. Chest CTA shows bilateral pulmonary embolism, pulmonary nodules and hepatic lesions concerning for metastatic disease. Dr. Caceres attempted to transfer patient to [facility] and spoke with Dr. Leigh of pulmonology/ critical care who recommended the patient be admitted here at [facility] and started on therapeutic Lovenox twice daily as DOACs or not approved in patients with malignancy. Review of Systems Review of Systems 10 point ROS obtained with pertinent positives noted in HPI, otherwise negative PFSH Family History Mother Cerebrovascular accident Father Heart disease Brother Neoplasm Medical History CAD (coronary artery disease) (Chronic) Social History Smoking/Tobacco Use Status: Former Tobacco Use Surgical History CARDIAC CATH Extraction of cataract (07/05/14) Repair of inguinal hernia Meds Home Medications Medication Instructions Recorded Confirmed Type aspirin [Ecotrin Low Strength] 81 tab PO DAILY tab-cap 11/30/12 06/20/18 History multivitamin [Daily Multi-Vitamin] 1 tab PO DAILY 11/30/12 06/20/18 History cholecalciferol (vitamin D3) 1,000 unit PO DAILY 07/03/14 06/20/18 History vitamin B complex [Bal B-50] 1 tab PO DAILY 07/03/14 06/20/18 History nitroglycerin [Nitrostat] 1 tab SUBLINGUAL PRN #25 tab-cap 08/18/16 06/20/18 History mometasone [Elocon] 1 paula TOPICAL DAILY PRN #1 tube 02/23/17 06/20/18 History atorvastatin 80 mg PO DAILY 90 Days #90 tab-cap 09/28/17 06/20/18 Rx escitalopram oxalate [Lexapro] 1 tab PO DAILY 90 Days #90 tab-cap 09/28/1706/20 Rx metoprolol tartrate 1 tab PO DAILY 90 Days #90 tab-cap 09/28/17 06/20/18 Rx mometasone [Elocon] 60 gm TOPICAL QD PRN 90 Days #3 09/28/17 06/20/18 Rx applic apixaban 5 mg tablet 5 mg .ROUTE BID #60 tab 06/17/18 06/20/18 Rx Allergies Allergy/AdvReac Type Severity Reaction Status Date / Time pneumococcal vaccine Allergy Intermediate Local Unverified 06/20/18 10:45 Rash, SOB Exam Narrative Exam Narrative: General: 77 yo obese male. Well developed and well nourished. No acute distress. A/Ox3. Pleasant and cooperative. HEENT: Normocephalic, Atraumatic. Conjunctiva clear, sclera non-icteric. PERRL. EOMI. Moist mucous membranes, oropharynx clear. Neck supple, no JVD, thyromegaly or lymphadenopathy. Cardiovascular: Regular rate and rhythm, S1S2, no S3 or S4. No murmur, rub, gallop. Respiratory: Chest expansion symmetrical, respirations unlabored. Lungs diminished, no adventitious breath sounds appreciated. GI: Abdomen round, soft, non-tender to palpation. Normoactive bowel sounds in all 4 quadrants. No hepatosplenomegaly or prominent masses. : deferred Extremities: Lower extremities without deformity or edema. Areas of excoriation noted to bilateral shins consistent with eczema Neurological: non-focal. CN 2-12 grossly intact. Psychiatric: pleasant and cooperative. Speech clear and articulate. Mood and affect normal, tearful at times. Results Labs : 06/20/18 11:05 06/20/18 11:05 Laboratory Results - last 24 hr 06/20/18 06/20/18 06/20/18 11:05 11:05 11:05 WBC 21.81 H RBC 3.01 L Hgb 10.2 L Hct 30.3 L MCV 100.7 H MCH 33.9 H MCHC 33.7 RDW 17.1 H Plt Count 227 MPV 10.0 Immature Gran % 0.4 Neutrophils % 43.0 Lymphocytes % 50.2 Monocytes % 5.7 Eosinophils % 0.4 Basophils % 0.3 Absolute Neutrophils 9.38 H Absolute Lymphocytes 10.95 H Absolute Monocytes 1.24 H Absolute Eosinophils 0.09 Absolute Basophils 0.07 Differential Comment Agrees w/ instrument RBC Morphology See below Polychromasia Present Anisocytosis 1+ Macrocytosis 2+ PT 11.2 H INR 1.1 APTT Cancelled Sodium 136 Potassium 3.9 Chloride 101 Carbon Dioxide 25.4 Anion Gap 9.6 BUN 29 H Creatinine 1.22 Estimated GFR/1.73 m2 57.60 Glucose 94 Calcium 8.7 Total Bilirubin 4.4 H AST 50 H ALT 38 Alkaline Phosphatase 241 H Troponin I 0.13 H NT-Pro-B Natriuret Pep 490 H Total Protein 7.1 Albumin 3.4 Urine Color Urine Clarity Urine pH Ur Specific [place] Urine Protein Urine Ketones Urine Blood Urine Nitrite Urine Bilirubin Urine Urobilinogen Ur Leukocyte Esterase Urine RBC Urine WBC Ur Epithelial Cells Urine Crystals Urine Bacteria Urine Casts Urine Mucus Ur Culture Indicated? Urine Glucose 06/20/18 06/20/18 14:05 14:10 WBC RBC Hgb Hct MCV MCH MCHC RDW Plt Count MPV Immature Gran % Neutrophils % Lymphocytes % Monocytes % Eosinophils % Basophils % Absolute Neutrophils Absolute Lymphocytes Absolute Monocytes Absolute Eosinophils Absolute Basophils Differential Comment RBC Morphology Polychromasia Anisocytosis Macrocytosis PT INR APTT Sodium Potassium Chloride Carbon Dioxide Anion Gap BUN Creatinine Estimated GFR/1.73 m2 Glucose Calcium Total Bilirubin AST ALT Alkaline Phosphatase Troponin I 0.10 H NT-Pro-B Natriuret Pep Total Protein Albumin Urine Color Yellow Urine Clarity Clear Urine pH 6.5 Ur Specific [place] 1.010 Urine Protein Negative Urine Ketones Negative Urine Blood Trace-intact H Urine Nitrite Negative Urine Bilirubin Negative Urine Urobilinogen >=8.0 Ur Leukocyte Esterase Negative Urine RBC 3-5 H Urine WBC 0-2 Ur Epithelial Cells Rare Urine Crystals Negative Urine Bacteria Rare Urine Casts Negative Urine Mucus Trace Ur Culture Indicated? No Urine Glucose Negative Last Vital Signs Temp 37 C 06/20/18 13:39 Pulse 63 06/20/18 14:01 Resp 18 06/20/18 14:01 BP 107/61 06/20/18 14:01 Pulse Ox 94 L 06/20/18 14:01
[2018-06-21 00:31] VITALS: PULSE 66
[2018-06-21] MEDS: Enoxaparin 100 MG/ML SYR SC ×2 (06:30→18:56)
[2018-06-21 07:00] VITALS: PULSE 67
[2018-06-21 07:20] VITALS: BP 129/82; PULSE 67; RESP 19; TEMP 37; O2SAT 95
[2018-06-21 07:25] VITALS: O2SAT 93
[2018-06-21 07:25] LABS: Abs Immature Grans 0.06 k/cumm (0.0-0.09); Basophils % 0.2; Eosinophils % 0.5; HCT 27.4 % (40.0-50.0); Immature Grans % 0.3; Mean Corp. HGB Concentration 32.8 g/dL (32.0-36.0); Mean Corpuscular Hemoglobin 33.3 pg (27.0-33.0); Mean Corpuscular Volume 101.5 fL (80-95); Mean Platelet Volume 10.1 fL (8.0-11.0); Monocytes % 5.4; Neutrophils % 39.7; Platelet Count 198 x1000/uL (130-400); RBC Distribution Width 17.6 % (11.8-14.1)
[2018-06-21 07:26] LABS: Absolute Basophil Count 0.04 k/cumm (0.0-0.2)
[2018-06-21 07:38] LABS: ALT 38 U/L (12-78); AST 47 U/L (15-37); Alkaline Phosphatase 208 U/L (46-116); Anion Gap 9.8 mmol/L (3-11); BUN 26 mg/dL (7-18); Bilirubin, Total 4.1 mg/dL (0.2-1.0); CO2 25.2 mmol/L (21.0-32.0); CREATININE 1.06 mg/dL (0.70-1.30); Calcium 8.1 mg/dL (8.5-10.1); Chloride 104 mmol/L (98-107); Glucose 97 mg/dL (70-100); Potassium 3.7 mmol/L (3.5-5.1); Sodium 139 mmol/L (136-145); Total Protein 6.3 g/dL (6.4-8.2)
[2018-06-21 07:41] LABS: Troponin I 0.09 ng/mL (0.00-0.06)
[2018-06-21] MEDS: Escitalopram 10 MG TAB PO (07:44)
[2018-06-21] MEDS: Pantoprazole 40 MG TABCR PO (07:44)
[2018-06-21] MEDS: Atorvastatin 40 MG TAB 80 MG PO (07:44)
[2018-06-21] MEDS: Multivitamin TAB 1 TAB PO (07:44)
[2018-06-21] MEDS: Aspirin E.C. 81 MG TABEC PO (07:44)
[2018-06-21] MEDS: Metoprolol 50 MG TAB PO (07:44)
[2018-06-21 07:51] LABS: Anisocytosis 2+; Basophilic Stippling Present; Diff Comment Agrees w/ Instrument; Lymphocytes % 53.9; Macrocytosis 1+; Poikilocytes 2+; Polychromasia Present
--- NOTE | 2018-06-21 09:02 | MERGE_ITS ---
*[facility]* *[facility]* [address] [place] [address] Date of study: 06/21/2018 Transthoracic Echocardiography M-mode, complete 2D, complete spectral Doppler, and color Doppler *STUDY CONCLUSIONS* Impressions: Frequent ectopy was noted on this study, making this study technically difficult for the assessment of cardiac function. Summary: 1. Left ventricle: The cavity size was normal. Wall thickness was increased in a pattern of mild LVH. Systolic function was mildly to moderately reduced. The estimated ejection fraction was 40-45%. Diffuse hypokinesis with regional variations. 2. Mitral valve: There was mild regurgitation. 3. Right ventricle: The cavity size was dilated (basal diameter 5.1 cm). Wall thickness was normal. Systolic function was reduced. 4. Tricuspid valve: There was mild-moderate regurgitation. 5. Pulmonary arteries: Pulmonary systolic pressure was increased, in the range of 35mm Hg to 40mm Hg. *PATIENT PRESENTATION* Height: 177.8cm ((70in) ) S/D Pressure: 127 / 75 Weight: 95.3kg ((209.6lb) ) BSA: 2.19m^2 Test start time: 09:10 AM. Test stop time: 00:10 AM. PERFORMING Unknown PERFORMING [facility] ORDERING Abbi Burgess REFERRING Abbi Burgess REPRESENTATIVE PERSONAL SERVICERT Ryland (R)(CT), ALEXANDRE *PROCEDURE DATA* Procedure information: The patient was identified by two identifiers. This study was interpreted by [facility]. Pertinent images and digital data are archived for permanent storage and are available for subsequent review. Comparison was made to the study of 12/15/2001. Study status: Routine. Transthoracic echocardiography. M-mode, complete 2D, complete spectral Doppler, and color Doppler. A Transthoracic Echocardiogram was performed. Scanning was performed from the parasternal, apical, subcostal, and suprasternal notch acoustic windows. Images were obtained using an [id number] cardiac ultrasound machine. Image quality was adequate. Study completion: The patient tolerated the procedure well. There were no complications. History: PMH: Bilateral PE. *CARDIAC ANATOMY* Left ventricle: The cavity size was normal. Wall thickness was increased in a pattern of mild LVH. Systolic function was mildly to moderately reduced. The estimated ejection fraction was 40-45%. Diffuse hypokinesis with regional variations. Aortic valve: Trileaflet; mildly thickened, mildly calcified leaflets. Mobility was not restricted. Doppler: Transvalvular velocity was within the normal range. There was no stenosis. There was no significant regurgitation. VTI ratio of LVOT to aortic valve: 0.49. Valve area (VTI): 1.9cm^2. Indexed valve area (VTI): 0.9cm^2/m^2. Peak velocity ratio of LVOT to aortic valve: 0.47. Valve area (Vmax): 1.8cm^2. Indexed valve area (Vmax): 0.8cm^2/m^2. Mean velocity ratio of LVOT to aortic valve: 0.45. Valve area (Vmean): 1.7cm^2. Indexed valve area (Vmean): 0.8cm^2/m^2. Mean gradient (S): 12.6mm Hg. Peak gradient (S): 22.6mm Hg. Aorta: Aortic root: The aortic root was normal in size. Mitral valve: Mildly thickened leaflets. Leaflet separation was normal. Mobility was not restricted. Doppler: Transvalvular velocity was within the normal range. There was no evidence for stenosis. There was mild regurgitation. Valve area by pressure half-time: 1.7cm^2. Indexed valve area by pressure half-time: 0.8cm^2/m^2. Left atrium: The atrium was normal in size. Right ventricle: The cavity size was dilated (basal diameter 5.0 cm). Wall thickness was normal. Systolic function was reduced. Pulmonic valve: Doppler: Transvalvular velocity was within the normal range. There was no evidence for stenosis. There was trivial regurgitation. Tricuspid valve: Structurally normal valve. Doppler: Transvalvular velocity was within the normal range. There was no evidence for stenosis. There was mild-moderate regurgitation. Pulmonary artery: Pulmonary systolic pressure was increased, in the range of 35mm Hg to 40mm Hg. Right atrium: The atrium was normal in size. Pericardium: There was no pericardial effusion. Systemic veins: Inferior vena cava: Well visualized. The vessel was patent and normal in size. The respirophasic diameter changes were in the normal range (greater than or equal to 50%). Measurements Left ventricle Value Reference LV ID, ED, PLAX 5.8 cm 3.5 - 6.0 LV ID, ES, PLAX (H) 5.0 cm 2.1 - 4.0 LV PW thickness, ED, PLAX 1.1 cm LV end-diastolic volume, 1-p A2C 130 ml LV ejection fraction, 1-p A2C 33 % LV end-diastolic volume, 1-p A4C 151 ml LV ejection fraction, 1-p A4C 46 % LV e', lateral 0.08 m/sec LV E/e', lateral 5 LV e', medial 0.057 m/sec LV E/e', medial 7 LV e', average 0.068 m/sec LV E/e', average 6 Ventricular septum Value Reference IVS thickness, ED, PLAX 1.3 cm LVOT Value Reference LVOT ID, A-P 2.2 cm LVOT area 3.9 cm^2 LVOT peak velocity, S 1.12 m/sec LVOT mean velocity, S 0.75 m/sec LVOT VTI, S 25.9 cm LVOT peak gradient, S 5 mm Hg LVOT mean gradient, S 2.7 mm Hg Stroke volume (SV), LVOT DP 100 ml Stroke index (SV/bsa), LVOT DP 46 ml/m^2 Aortic valve Value Reference Aortic valve peak velocity, S 2.4 m/sec Aortic valve mean velocity, S 1.69 m/sec Aortic valve VTI, S 53.0 cm Aortic mean gradient, S 12.6 mm Hg Aortic peak gradient, S 22.6 mm Hg VTI ratio, LVOT/AV 0.49 Aortic valve area, VTI 1.9 cm^2 Velocity ratio, peak, LVOT/AV 0.47 Aortic valve area, peak velocity 1.8 cm^2 Velocity ratio, mean, LVOT/AV 0.45 Aortic valve area, mean velocity 1.7 cm^2 Aortic valve area/bsa, mean velocity 0.8 cm^2/m^2 Aorta Value Reference Aortic root ID, ED 3.4 cm RVOT Value Reference RVOT VTI, S 14.4 cm Left atrium Value Reference LA ID, A-P, ES 4.3 cm LA ID/bsa, A-P 1.9 cm/m^2 <=2.2 LA area, ES, A4C (H) 27.4 cm^2 8.8 - 23.4 LA area, ES, A2C 23 cm^2 LA volume/bsa, ES, 1-p A4C 45 ml/m^2 LA volume, ES, 2-p 87 ml LA volume/bsa, ES, 2-p 40 ml/m^2 LA/aortic root ratio 1.26 Mitral valve Value Reference Mitral E-wave peak velocity 0.38 m/sec Mitral A-wave peak velocity 0.58 m/sec Mitral deceleration time (H) 445 ms 150 - 230 Mitral pressure half-time 129 ms Mitral E/A ratio, peak 0.66 Mitral valve area, PHT, DP 1.7 cm^2 Pulmonary veins Value Reference Pulmonary vein peak velocity, S 0.55 m/sec Pulmonary vein peak velocity, D 0.5 m/sec Pulmonary vein velocity ratio, peak, 1.11 S/D Pulmonary vein A-wave reversal peak 0.36 m/sec velocity Pulmonary vein A-wave reversal 127 ms duration Tricuspid valve Value Reference Tricuspid regurg peak velocity 2.7 m/sec Tricuspid peak RV-RA gradient 29.3 mm Hg Right atrium Value Reference RA area, ES, A4C (H) 25.1 cm^2 8.3 - 19.5 Legend: (L) and (H) errol values outside specified reference range. I have personally reviewed the images and have reviewed and edited the reported findings. Electronically signed by Alfredo Lam 06/21/2018 10:50
--- NOTE | 2018-06-21 11:50 | PHARADMIT ---
Admission Pharmacy Clinical Review bilteral PE Code Status Full Code Current Weight Wgt- 95.4 kg Renally Cleared and Narrow Therapeutic Index Meds CrCl~ 60 mL/min Meds-OK QTc Value / Action Taken QTc-493 BP Control, Fever BP- 129/82 TMax- 37.1c Electrolytes reviewed Na- 139 K+3.7 DVT Prophylaxis Lovenox 100mg sc bid, ASA Opiate Usage / Scheduled Bowel Regimen Ordered No Yes Plt/SCr for Heparin / Enoxaparin Plts-198 SCr-1.06 INR for Warfarin INR-1.1 H/H stable, WBC/Bands H&H- 9.0/27.4 WBC- 20.40 Antibiotic appropriateness NONE Cultures and Sensitivities Flu-neg Surgical ABX d/c within 24 hr na DM control / Insulin Dosing BG-97 Heart Failure (Check EF%) (BERTA's, B-Block, Diuretics) Lopressor, NTG IV to PO Switch No Home Meds Reviewed Yes Home Meds Not Ordered Apixaban, Vit-D, Elocon, B-complex Comments
[2018-06-21 12:17] LABS: Ferritin 995 ng/mL (8-388); Folate 16.9 ng/mL (8.6-20.0); TSH (W/Ref FT4) 1.75 uIU/mL (0.358-3.74); Vitamin B12 648 pg/mL (193-986)
[2018-06-21 13:16] LABS: Iron 114 ug/dL (50-175); Total Iron Binding Capacity 207 ug/dL (250-450); Transferrin Sat 55 % (20-55)
[2018-06-21] MEDS: Acetaminophen 325 MG TAB PO (13:47)
--- NOTE | 2018-06-21 13:51 | PDOC.CMIN ---
- If Service Date Differs Date of service: 06/21/18 Time of Service: 13:51 Care Management Initial Assess REASON FOR HOSPITALIZATION:: Bilateral PE's PAST MEDICAL HISTORY/PAST SURGICAL HISTORY:: Coronary artery disease, cataracts, deep vein thrombosis, pulmonary embolism, traumatic amputation of left ring finger, syncope, shoulder pain, osteoarthritis, tobacco use, chronic lymphatic leukemia, atopic dermatitis, atherosclerosis, coronary artery disease, benign hypertension, depressive disorder, hyperlipidemia, eczema, calculus of the kidney and ureter, varicose veins of lower extremity, peripheral arterial occlusive disease. Surgical history bypass graft x2 in 2010 PREVIOUS FUNCTIONAL STATUS/SOCIAL/FAMILY SUPPORTS:: Handy is retired from the [employer], he lives with his Milla in [place]. He lives in his own home, he is independent with transportation, he has no equipment for ADLs. He has 2 sons that live in [place]. CURRENT FUNCTIONAL STATUS:: Handy is alert and engaged in conversation he states that has an oncologist through [facility] . He states that he sees once a year and was seen recently. CM reviewed the plan to return home on Lovenox injections. Patient states that he does not feel comfortable giving himself an injection. CM reviewed with the patient teaching his spouse as well as himself to give injections. Primary nurse will assist patient in learning Lovenox injections. ADVANCE DIRECTIVES:: On file at [facility] Has patient been provided with information about the portal?: Yes Did the patient sign up for the portal?: No CODE STATUS:: Full Code INSURANCE COVERAGE / FINANCIAL ISSUES:: [facility] CURRENT HOME/COMMUNITY SERVICES/EQUIPMENT:: Oncology through [facility] PRIMARY CARE PHYSICIAN:: POTENTIAL DISCHARGE NEEDS:: Follow up with [facility] and primary care. CM contacted [facility] and spoke with Becky she will contact to scheduled Handy's appointment based on recent test results. CM contact imaging and spoke with DI all Handy's images are being pushed to for review. Becky will contact Handy with soonest appointment avail. PATIENT/FAMILY EDUCATION NEEDS:: Discharge plan, limitations, follow-up plan of care, ask me 3 and self-management discussion. ANTICIPATED BARRIERS TO DISCHARGE:: Handy will need to learn self administration of Lovenox injections prior to discharge home. TRANSPORTATION:: Via private car with spouse at time of discharge. PLAN:: Handy remains inpatient at this time, he will have an MRI today. He will be discharged when medically ready per provider. CM to obtain Lovenox prescription and sent pharmacy to ensure coverage. Follow-up with [facility] to be scheduled by Dr. Talbot with the patient directly.
--- NOTE | 2018-06-21 14:25 | INITIAL_ITS ---
- If Service Date Differs Date of service: 06/21/18 Time of Service: 13:51 Care Management Initial Assess REASON FOR HOSPITALIZATION:: Bilateral PE's PAST MEDICAL HISTORY/PAST SURGICAL HISTORY:: Coronary artery disease, cataracts , deep vein thrombosis, pulmonary embolism, traumatic amputation of left ring finger, syncope, shoulder pain, osteoarthritis, tobacco use, chronic lymphatic leukemia, atopic dermatitis, atherosclerosis, coronary artery disease, benign hypertension, depressive disorder, hyperlipidemia, eczema, calculus of the kidney and ureter, varicose veins of lower extremity, peripheral arterial occlusive disease. Surgical history bypass graft x2 in 2010 PREVIOUS FUNCTIONAL STATUS/SOCIAL/FAMILY SUPPORTS:: Handy is retired from the [employer], he lives with his Milla in [place]. He lives in his own home, he is independent with transportation, he has no equipment for ADLs. He has 2 sons that live in [place]. CURRENT FUNCTIONAL STATUS:: Handy is alert and engaged in conversation he states that has an oncologist through [facility] . He states that he sees once a year and was seen recently. CM reviewed the plan to return home on Lovenox injections. Patient states that he does not feel comfortable giving himself an injection. CM reviewed with the patient teaching his spouse as well as himself to give injections. Primary nurse will assist patient in learning Lovenox injections. ADVANCE DIRECTIVES:: On file at [facility] Has patient been provided with information about the portal?: Yes Did the patient sign up for the portal?: No CODE STATUS:: Full Code INSURANCE COVERAGE / FINANCIAL ISSUES:: [facility] CURRENT HOME/COMMUNITY SERVICES/EQUIPMENT:: Oncology through [facility] PRIMARY CARE PHYSICIAN:: POTENTIAL DISCHARGE NEEDS:: Follow up with [facility] and primary care. CM contacted [facility] and spoke with Becky she will contact to scheduled Handy's appointment based on recent test results. CM contact imaging and spoke with DI all Handy's images are being pushed to for review. Becky will contact Handy with soonest appointment avail. PATIENT/FAMILY EDUCATION NEEDS:: Discharge plan, limitations, follow-up plan of care, ask me 3 and self-management discussion. ANTICIPATED BARRIERS TO DISCHARGE:: Handy will need to learn self administration of Lovenox injections prior to discharge home. TRANSPORTATION:: Via private car with spouse at time of discharge. PLAN:: Handy remains inpatient at this time, he will have an MRI today. He will be discharged when medically ready per provider. CM to obtain Lovenox prescription and sent pharmacy to ensure coverage. Follow-up with [facility] to be scheduled by Dr. Talbot with the patient directly.
--- NOTE | 2018-06-21 14:45 | PGE_ITS ---
Date of Service Date of service: 06/21/18 Time of Service: 14:36 Assessment and Plan (1) Pulmonary embolism: Current visit: Yes Status: Acute He is currently on therapeutic Lovenox BID in the setting of possible metastatic disease. Apixiban has been discontinued. ECHO reveals right heart strain with dilated RV, tricuspid regurgitation, LVEF 40-45%. Troponins trending down, 0.09 this morning. He is a patient of [facility], [facility]. He will need close follow up with Dr. Medrano to further work up the CT findings. (2) Hx of deep venous thrombosis: Current visit: Yes Status: Acute Lovenox as above. (3) Headache: Current visit: Yes Status: Acute With left-sided visual field deficit, no history of migraine headaches and in the setting of potential metastatic disease. Will get MRI/MRA brain to rule out brain mets vs stroke vs other. (4) Benign hypertension: Current visit: No Status: Active His blood pressure appears to be well controlled with beta irina alone. Continue Metoprolol at current dose. Continue to monitor blood pressure. Continue ADA diet. (5) Discharge planning issues: Current visit: Yes Status: Acute He is a FULL CODE. He will likely return home when he is ready. He will need education on lovenox injections to be given at home. This case was discussed with Dr. Prather who is in agreement. Subjective Interval history since last seen: Handy is a pleasant 77-year-old gentleman with past medical history significant for coronary artery disease status post CABG ( 2010), hypertension, hyperlipidemia, CLL, recently diagnosed DVT who presents to the emergency department on 06/20/18 with complaints of ongoing exertional shortness of breath. Was seen in the emergency department on 06/08/2018 with complaints of right medial calf discomfort and swelling. Lower extremity ultrasound showed no DVT, but did suggest a greater saphenous vein superficial thrombus which lied approximately 1.5 cm distal to this saphenofemoral junction. He was started on Eliquis and discharged home. He had been feeling well up until yesterday morning when he began to have shortness of breath, especially with exertion. In the ED, he had a chest CTA which revealed bilateral pulmonary embolism, pulmonary nodules and hepatic lesions concerning for metastatic disease. An attempt was made to transfer him to [facility] for care, however, recommendations were made to keep the patient here at [facility] and started on therapeutic Lovenox twice daily as DOACs or not approved in patients with malignancy. Today he feels that his shortness of breath has improved. He continues to have some shortness of breath with exertion. He denies chest pain/pressure or palpitations. His biggest complaint is that he had a headache for 3-4 hours this morning behind his left eye, but more concerning is that he is experiencing left-sided visual field deficits. He describes that when he is looking at the TV, he cannot see the first letter of the word on the screen. He covered his eyes and found that this is occurring in both eyes. Otherwise, he is eating and drinking well, he denies any trouble with speech or swallowing, no problems with coordination, no paresthesias. A brain MRI is pending. As mentioned previously, there was concern for metastatic disease on his CTA in the ED. Exam Narrative Exam Narrative: General: 77 year old obese male. Well developed and well nourished. No acute distress. Alert and Oriented x3. Pleasant and cooperative. HEENT: Normocephalic, Atraumatic. Conjunctiva clear, sclera non-icteric. PERRLA. EOMI. Moist mucous membranes, oropharynx clear. Neck supple, no JVD, thyromegaly or lymphadenopathy. Cardiovascular: Regular rate and rhythm, normal S1 and S2, no S3 or S4. No murmur, rub, gallop. Respiratory: Chest expansion symmetrical, respirations even and unlabored. Lung sounds diminished bilaterally, no adventitious breath sounds appreciated. GI: Abdomen round, soft, non-tender to palpation. Normoactive bowel sounds in all 4 quadrants. No hepatosplenomegaly or prominent masses. Extremities: Lower extremities without deformity or edema. Areas of excoriation noted to bilateral shins consistent with eczema Neurological: Note is made of left-sided visual field deficit, otherwise, non- focal. Psychiatric: pleasant and cooperative. Speech clear and articulate. Mood and affect normal. Objective Objective Clinical Data: Abnormal lab results 06/20/18 06/20/18 06/21/18 Range/Units 11:05 14:10 06:47 WBC (4.4-10.8) k/cumm RBC (4.50-6.00) m/cumm Hgb (13.5-17.5) g/dL Hct (40.0-50.0) % MCV (80-95) fL MCH (27.0-33.0) pg RDW (11.8-14.1) % Absolute Neutrophils (1.2-6.7) k/cumm Absolute Lymphocytes (1.2-3.4) k/cumm Absolute Monocytes (0.11-0.7) k/cumm PT 11.2 H (9.3-10.8) sec BUN 26 H (7-18) mg/dL Calcium 8.1 L (8.5-10.1) mg/dL TIBC (250-450) ug/dL Ferritin (8-388) ng/mL Total Bilirubin 4.1 H (0.2-1.0) mg/dL AST 47 H (15-37) U/L Alkaline Phosphatase 208 H (46-116) U/L Troponin I 0.10 H 0.09 H (0.00-0.06) ng/mL Total Protein 6.3 L (6.4-8.2) g/dL Albumin 3.0 L (3.4-5.0) g/dL 06/21/18 06/21/18 06/21/18 Range/Units 06:47 11:02 11:02 WBC 20.40 H (4.4-10.8) k/cumm RBC 2.70 L (4.50-6.00) m/cumm Hgb 9.0 L (13.5-17.5) g/dL Hct 27.4 L (40.0-50.0) % MCV 101.5 H (80-95) fL MCH 33.3 H (27.0-33.0) pg RDW 17.6 H (11.8-14.1) % Absolute Neutrophils 8.10 H (1.2-6.7) k/cumm Absolute Lymphocytes 11.00 H (1.2-3.4) k/cumm Absolute Monocytes 1.10 H (0.11-0.7) k/cumm PT (9.3-10.8) sec BUN (7-18) mg/dL Calcium (8.5-10.1) mg/dL TIBC 207 L (250-450) ug/dL Ferritin 995 H (8-388) ng/mL Total Bilirubin (0.2-1.0) mg/dL AST (15-37) U/L Alkaline Phosphatase (46-116) U/L Troponin I (0.00-0.06) ng/mL Total Protein (6.4-8.2) g/dL Albumin (3.4-5.0) g/dL Vital Signs Temperature 37.0 C 06/21/18 07:20 Temperature Source Tympanic 06/21/18 07:20 Pulse 67 06/21/18 07:20 Pulse Rhythm Irregular 06/21/18 09:40 Pulse 80 06/20/18 19:40 Respiratory Rate 19 06/21/18 07:20 Respiratory Effort 06/21/18 09:40 Respiratory Depth Normal 06/21/18 09:40 Respiratory Pattern Normal 06/21/18 09:40 Blood Pressure 129/82 06/21/18 07:20 Blood Pressure Mean 88 06/20/18 16:46 Blood Pressure Position Supine 06/20/18 10:37 Pulse Oximetry 93 L 06/21/18 07:25 Oxygen Delivery Method Room Air 06/21/18 07:25 Oxygen Flow Rate 0 06/21/18 07:25 Pain Level 2 06/21/18 11:37 Comment 06/20/18 23:45 Intake & Output 06/20/18 06/21/18 06/21/18 23:59 11:59 23:59 Intake Total 0 / 0 240 / 240 Balance 0 / 0 240 / 240 Weight 98.2 kg 95.4 kg Intake: Oral 0 / 0 240 / 240 Other: Comment void x 4 per pt. Pt voids ind3ep in toilet Voiding Methods Toilet Laboratory Results WBC 20.40 k/cumm (4.4-10.8) H 06/21/18 06:47 RBC 2.70 m/cumm (4.50-6.00) L 06/21/18 06:47 Hgb 9.0 g/dL (13.5-17.5) L 06/21/18 06:47 Hct 27.4 % (40.0-50.0) L 06/21/18 06:47 MCV 101.5 fL (80-95) H 06/21/18 06:47 MCH 33.3 pg (27.0-33.0) H 06/21/18 06:47 MCHC 32.8 g/dL (32.0-36.0) 06/21/18 06:47 RDW 17.6 % (11.8-14.1) H 06/21/18 06:47 Plt Count 198 x1000/uL (130-400) 06/21/18 06:47 MPV 10.1 fL (8.0-11.0) 06/21/18 06:47 Immature Gran % 0.3 06/21/18 06:47 Neutrophils % 39.7 06/21/18 06:47 Lymphocytes % 53.9 06/21/18 06:47 Monocytes % 5.4 06/21/18 06:47 Eosinophils % 0.5 06/21/18 06:47 Basophils % 0.2 06/21/18 06:47 Absolute Neutrophils 8.10 k/cumm (1.2-6.7) H 06/21/18 06:47 Absolute Lymphocytes 11.00 k/cumm (1.2-3.4) H 06/21/18 06:47 Absolute Monocytes 1.10 k/cumm (0.11-0.7) H 06/21/18 06:47 Absolute Eosinophils 0.10 k/cumm (0.0-0.7) 06/21/18 06:47 Absolute Basophils 0.04 k/cumm (0.0-0.2) 06/21/18 06:47 Differential Comment Agrees w/ instrument 06/21/18 06:47 RBC Morphology See below 06/21/18 06:47 Polychromasia Present 06/21/18 06:47 Poikilocytosis 2+ 06/21/18 06:47 Basophilic Stippling Present 06/21/18 06:47 Anisocytosis 2+ 06/21/18 06:47 Macrocytosis 1+ 06/21/18 06:47 PT 11.2 sec (9.3-10.8) H 06/20/18 11:05 INR 1.1 (1.0-3.5) 06/20/18 11:05 APTT Cancelled 06/20/18 11:05 Sodium 139 mmol/L (136-145) 06/21/18 06:47 Potassium 3.7 mmol/L (3.5-5.1) 06/21/18 06:47 Chloride 104 mmol/L (98-107) 06/21/18 06:47 Carbon Dioxide 25.2 mmol/L (21.0-32.0) 06/21/18 06:47 Anion Gap 9.8 mmol/L (3-11) 06/21/18 06:47 BUN 26 mg/dL (7-18) H 06/21/18 06:47 Creatinine 1.06 mg/dL (0.70-1.30) 06/21/18 06:47 Estimated GFR/1.73 m2 >= 60.00 (mL/min/1.73m2) 06/21/18 06:47 Glucose 97 mg/dL (70-100) 06/21/18 06:47 Calcium 8.1 mg/dL (8.5-10.1) L 06/21/18 06:47 Iron 114 ug/dL (50-175) 06/21/18 11:02 TIBC 207 ug/dL (250-450) L 06/21/18 11:02 Transferrin % Sat 55 % (20-55) 06/21/18 11:02 Ferritin 995 ng/mL (8-388) H 06/21/18 11:02 Total Bilirubin 4.1 mg/dL (0.2-1.0) H 06/21/18 06:47 AST 47 U/L (15-37) H 06/21/18 06:47 ALT 38 U/L (12-78) 06/21/18 06:47 Alkaline Phosphatase 208 U/L (46-116) H 06/21/18 06:47 Troponin I 0.09 ng/mL (0.00-0.06) H 06/21/18 06:47 NT-Pro-B Natriuret Pep 490 pg/mL (-299) H 06/20/18 11:05 Total Protein 6.3 g/dL (6.4-8.2) L 06/21/18 06:47 Albumin 3.0 g/dL (3.4-5.0) L 06/21/18 06:47 Vitamin B12 648 pg/mL (193-986) 06/21/18 11:02 Folate 16.9 ng/mL (8.6-20.0) 06/21/18 11:02 TSH 1.75 uIU/mL (0.358-3.74) 06/21/18 11:02 Urine Color Yellow (Yellow) 06/20/18 14:05 Urine Clarity Clear 06/20/18 14:05 Urine pH 6.5 (5-8) 06/20/18 14:05 Ur Specific [place] 1.010 (1.005-1.025) 06/20/18 14:05 Urine Protein Negative mg/dL (Negative) 06/20/18 14:05 Urine Ketones Negative mg/dL (Negative) 06/20/18 14:05 Urine Blood Trace-intact (Negative) H 06/20/18 14:05 Urine Nitrite Negative (Negative) 06/20/18 14:05 Urine Bilirubin Negative (Negative) 06/20/18 14:05 Urine Urobilinogen >=8.0 EU/dL (Up TO 0.2) 06/20/18 14:05 Ur Leukocyte Esterase Negative (Negative) 06/20/18 14:05 Urine RBC 3-5 (0-2) H 06/20/18 14:05 Urine WBC 0-2 HPF (0-5) 06/20/18 14:05 Ur Epithelial Cells Rare HPF (Negative) 06/20/18 14:05 Urine Crystals Negative HPF (Negative) 06/20/18 14:05 Urine Bacteria Rare HPF (Negative) 06/20/18 14:05 Urine Casts Negative LPF (Negative) 06/20/18 14:05 Urine Mucus Trace (Negative) 06/20/18 14:05 Ur Culture Indicated? No 06/20/18 14:05 Urine Glucose Negative mg/dL (Negative) 06/20/18 14:05
--- NOTE | 2018-06-21 15:00 | DI.MRI_ITS ---
SYMPTOMS/DIAGNOSIS: RIGHT-SIDED HEADACHE WITH LEFT-SIDED VISUAL DEFICIT, ? METS ON LIVER IMAGING, H/O CLL MRA OF THE BRAIN: A 3D [id number] study was performed. There is origin of the left posterior cerebral artery. 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 There is no evidence of occlusion or aneurysm. There is a focal irregularity within the proximal M1 segment of the left middle cerebral artery, which could represent a small amount of plaque or thrombus. IMPRESSION: Mild area of narrowing in the proximal M1 segment may represent a small area of plaque or thrombus. MRI OF THE BRAIN: T2 sagittal, T1, T2, FLAIR, diffusion, gradient-echo axial and postgadolinium T1 axial and coronal sequences were performed. There is an area of restricted diffusion superiorly in the left frontal lobe. There are a few other tiny areas of restricted diffusion in the superior left frontal lobe, superior left parietal lobe and posterior right occipital lobe. The findings are consistent with acute infarcts. Due to the multiplicity, embolic source is likely. There is no evidence of abnormal enhancement following IV gadolinium. There is no evidence of metastatic disease. The ventricles are normal in size. Orbits, pituitary, sinuses and mastoid air cells are unremarkable. There is an incidental small cyst in the left parotid gland. IMPRESSION: Multifocal infarcts, greatest in the left superior frontal lobe, suspicious for embolic disease.
[2018-06-21] MEDS: Gadoterate meglumine 20 ML VIAL IVP (15:34)
--- NOTE | 2018-06-21 16:10 | DI.VRAD_ITS ---
EXAM: MR Head Without and With Intravenous Contrast EXAM DATE/TIME: 06/21/2018 3:43 PM CLINICAL HISTORY: 77 years old, male; Signs and symptoms; Dizziness and visual disturbance; Patient HX: Right sided headache x1day, visual disturbances x1 day. Patient sts missing spots right eye. TECHNIQUE: MR of the head without and with intravenous contrast. CONTRAST: 20 ml of dotarem administered intravenously. COMPARISON: HEAD^MRA COW 06/21/2018 2:58 PM FINDINGS: Brain: Small areas of T2 prolongation in the cerebral white matter is nonspecific, but likely secondary to mild microvascular disease. Diffusion images show areas of restricted diffusion an acute infarct in posterior right occipital lobe, left superior frontal lobe, and tiny areas in the superior left parietal lobe. No evidence of acute intracranial hemorrhage. No extra-axial fluid collections. Ventricles and cerebrospinal fluid spaces are normal in size and configuration for the patient's age. There is no evidence of mass-effect or midline shift. Flow voids of the [place] and major cerebral vascular structures appear intact. Craniocervical junction appears unremarkable, with normal position of cerebellar tonsils and no evidence of Chiari I malformation. There is no evidence of abnormal parenchymal or leptomeningeal contrast enhancement. Ventricles: No evidence of hydrocephalus Bones/joints: Unremarkable as visualized. Soft tissues: There is an ovoid 9 mm cyst in the anterior superficial portion of left parotid gland. Sinuses: There is minimal mucosal thickening in paranasal sinuses. No air-fluid levels. Mastoid air cells: No significant mastoid effusion. Orbits: There is prior left cataract surgery. Flow-voids are seen in ophthalmic arteries adjacent to bilateral optic nerves. IMPRESSION: 1. Areas of restricted diffusion consistent with acute infarcts in right posterior occipital lobe, left superior frontal lobe, and left superior parietal lobe. Given multiple vascular distributions, consider an embolic etiology such as cardiac source. 2. Given the patient?s clinical history, MRA to assess the intracranial vascular system would be appropriate. Dictated and Authenticated by: Marisa Hightower MD. Ordering:JAYMIE PETERS MD
--- NOTE | 2018-06-21 16:12 | DI.VRAD_ITS ---
EXAM: MR Angiogram Head Without Contrast, Arteries EXAM DATE/TIME: 06/21/2018 3:19 PM CLINICAL HISTORY: 77 years old, male; Signs and symptoms; Visual disturbance; Other visual defect; Patient HX: Right eye visual disturbances; Additional info: ? Mets liver on previous imaging, HX of cll TECHNIQUE: MR angiogram head without contrast. Exam focused on the arteries. MIP reconstructed images were created and reviewed. COMPARISON: No relevant prior studies available. FINDINGS: Limitations: Vertebral arteries are not sufficiently included in [id number]. Right internal carotid artery: Unremarkable. Intracranial segment is patent with no significant stenosis. No aneurysm. 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 A2 segment is supplied across a patent anterior communicating artery from contralateral side. No stenosis. No occlusion. No evidence of aneurysm. Right middle cerebral artery: Unremarkable. No occlusion or significant stenosis. No aneurysm. Right posterior cerebral artery: Unremarkable. No occlusion or significant stenosis. No aneurysm. Right vertebral artery: Not adequately included in [id number]. Left internal carotid artery: Unremarkable. Intracranial segment is patent with no significant stenosis. No aneurysm. Left anterior cerebral artery: Unremarkable. No occlusion or significant stenosis. No aneurysm. Left middle cerebral artery: Unremarkable. No occlusion or significant stenosis. No aneurysm. Left posterior cerebral artery: There is origin of left posterior cerebral artery. No stenosis or occlusion. No evidence of aneurysm. Left vertebral artery: Not adequately included in [id number]. Basilar artery: Unremarkable. No occlusion or significant stenosis. No aneurysm. IMPRESSION: Unremarkable MRA. Dictated and Authenticated by: Marisa Hightower MD. Ordering:JAYMIE PETERS MD
[2018-06-21 23:15] VITALS: PULSE 81
[2018-06-22] VITALS (7 sets, daily range): BP systolic 101–144; BP diastolic 64–75; PULSE 57–71; RESP 18–19; TEMP 36.6–36.9; O2SAT 94–95
[2018-06-22] MEDS: Enoxaparin 100 MG/ML SYR SC ×2 (08:11→18:01)
[2018-06-22] MEDS: Metoprolol 50 MG TAB PO (08:12)
[2018-06-22] MEDS: Escitalopram 10 MG TAB PO (08:12)
[2018-06-22] MEDS: Aspirin E.C. 81 MG TABEC PO (08:12)
[2018-06-22] MEDS: Atorvastatin 40 MG TAB 80 MG PO (08:13)
[2018-06-22] MEDS: Multivitamin TAB 1 TAB PO (08:13)
[2018-06-22] MEDS: Pantoprazole 40 MG TABCR PO (08:13)
[2018-06-22] MEDS: Normal Saline Flush 10 ML SYR IVP (08:16)
[2018-06-22 08:49] LABS: HCT 29.5 % (40.0-50.0); HGB 9.9 g/dL (13.5-17.5); Mean Corp. HGB Concentration 33.6 g/dL (32.0-36.0); Mean Corpuscular Hemoglobin 34.4 pg (27.0-33.0); Mean Corpuscular Volume 102.4 fL (80-95); Mean Platelet Volume 9.9 fL (8.0-11.0); Platelet Count 201 x1000/uL (130-400); RBC 2.88 m/cumm (4.50-6.00); RBC Distribution Width 18.7 % (11.8-14.1)
[2018-06-22 08:58] LABS: White Blood Cell Count 25.05 k/cumm (4.4-10.8)
[2018-06-22 09:05] LABS: ALT 45 U/L (12-78); AST 57 U/L (15-37); Albumin 3.4 g/dL (3.4-5.0); Alkaline Phosphatase 239 U/L (46-116); Bilirubin, Total 4.3 mg/dL (0.2-1.0); Total Protein 7.1 g/dL (6.4-8.2)
--- NOTE | 2018-06-22 11:44 | CHAPLAIN ---
Handy was resting in bed when I visited. When I asked if he received the reports and information he was waiting for yesterday, he said, yes, I've got problems. He didn't elaborate except to say that what was discovered on his brain has been causing vision problems, but will llikelly go away. Medical staff was also investigating what was causing Handy's PEs as well as concerns about his liver, he told me yesterday. We didn't discuss those today. He said his will be in to pick him up later today when he is discharged. Handy's is active in the [facility] [employer], and her internal controls analyst Rev. Jeremy Palmer was here to visit Handy today. 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
--- NOTE | 2018-06-22 12:28 | PDOC.CMDIS ---
LACE Index Scoring Tool - Questions: Length of Stay (in days): 3 Acuity (Admit via E.D.?): Yes Comorbidities: Any Tumor E.D. Visits: 4 - Answers: Total Score: 12 Risk of Readmission: High Risk Care Management Discharge Reason for Hospitalization: Bilateral PE's Discharge Plan: Handy will discharge home when ready per MD. SINGH filled MD prescription for new FWW through [facility] at patient request. SINGH faxed Lovenox [facility] [place]; Sally called to notify of $9 copay for sixty syringes. Handy reported feeling more comfortable with managing the Lovenox at home. Handy will follow up with [facility], his PCP, and Palliative Care as an outpatient (CM provided education materials and discussed consult with Handy who would like to follow up with Dr. Rios at [facility]). Handy will transport home via private vehicle with his , Milla. Patient/Family Education Needs: Reviewed community based supports, prescription coverage, DME providers and process, Palliative Care consulation, discharge instructions-discussed self care needs upon discharge [facility]. Services Needed at Discharge: DME Agency ([facility]: FWW), Home Health Care Services (New PT/OT)
--- NOTE | 2018-06-22 13:41 | PT.INIE ---
Date of service: 06/22/18 Time of Service: 13:34 PT Notes Inpatient Physical Therapy Evaluation Date: 06/14/2018 Referring Doctor: Cas Prather PT Orders: PT CONSULT: Unsteady/dizzy Precautions: Standard precautions Patient Profile/Admitting Diagnosis: Patient is a 77-year-old male admitted with pulmonary embolism, deep vein thrombosis right lower extremity, lung nodules, hepatic lesion, new onset left visual field deficit PMHX: Chronic lymphatic leukemia, coronary artery disease s/p coronary artery bypass graft x2, peripheral arterial occlusive disease, varicose veins, osteoarthritis, history of shoulder pain, hypertension, hyperlipidemia, inguinal hernia repair, amputation left ring finger, atopic dermatitis, eczema, depressive disorder, calculus of kidney and ureter, cataract extraction Social History/Home Situation: Lives with his in a house, flight of steps with railing to enter. Baseline mobility independent gait without assistive device, independent with ADLs. 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 States he has used a cane in the community intermittently. Equipment Owned/DME: Single-point cane Subjective: Patient lying in bed watching TV, agreeable to PT consult. Reports he has new onset dizziness that presents primarily in the back of his head, he describes it as lightheadedness . Reports it is constant does not change with positional changes. Nursing took orthostatic blood pressures earlier today see nursing notes for details, patient reports there is minimal change in blood pressure with position changes. Patient's primary concern is decreased balance compared to his baseline, he is interested in obtaining a front wheel walker to improve gait stability, he is open to outpatient physical therapy for balance and gait training. Objective: General Observation: Patient wearing glasses, telemetry Mental Status: A& O x3 Pain: No complaints of pain. Reports generalized dizziness/lightheadedness at the posterior left head that is constant. Vision: Patient is able to track finger throughout all visual jewell equally. Reports seeing spots in his visual jewell left and right. Reports peripheral vision intact when looking straight ahead. Motor Control: Intact bilateral hands thumb to finger opposition's, intact heel to [place] bilaterally, intact finger to nose bilaterally. ROM: Right Upper Extremity: AROM WNL Left Upper Extremity: AROM WNL Right Lower Extremity: AROM WNL Left Lower Extremity: AROM WNL Strength: Right Upper Extremity: 5/5 throughout Left Upper Extremity: 5/5 throughout Right Lower Extremity: 5/5 throughout Left Lower Extremity: 5/5 throughout Bed Mobility/Transfers: Supine?sit: Independent Sit to stand: Independent Stand to sit: Independent Sit to supine: Independent Gait: No device: Gait without assistive device patient reports feeling unsteady, resulting in decreased fabi and decreased stride length. Single-point cane: Gait with single-point cane supervision 30 feet, patient reports slight unsteadiness with use of cane, would prefer use of front wheel walker FWW: Independent with use of FWW steady step through gait pattern 200 feet. Dizziness/lightheadedness present and constant, but did not affect balance or vision with gait stability. No visual deficits affecting balance with gait stability. Stairs: Up/down 10 steps with railing, independent Balance: Static Sitting: Normal Dynamic Sitting: Normal Static Standing: Fair Dynamic Standing: Fair Special Tests: Mobility Limitations Standardized Measure [facility]-PAC 6 clicks Basic Mobility Inpatient Short Form: Raw Score: 18 standardized Score: 43.63 CMS Score: 46.58% CMS Modifier: CK Informed Consent/Education: Patient instructed in purpose of PT consult and plan of care. Assessment: Patient is a 77 year old male referred to physical therapy services with the diagnosis of pulmonary embolism, deep vein thrombosis right lower extremity, lung nodules, hepatic lesion, new onset left visual field deficit in setting of Chronic lymphatic leukemia, coronary artery disease s/p coronary artery bypass graft x2, peripheral arterial occlusive disease, varicose veins, osteoarthritis. Patient presents with the following impairment level findings: Reports of dizziness/lightheadedness in posterior head that is constant, does not appear related to hypotension or vertigo type symptoms, appears to be related to diagnosis of possible strokes, patient reports seeing spots throughout visual field that is constant affecting his vision and balance. Patient presents with decreased static and dynamic standing balance compared to baseline, requiring use of front wheel walker for gait stability at this time. Patient is independent with transfers and independent with gait with use of FWW, he is at a functional level to be able to return to home setting with , FWW is recommended to improve gait stability initially anticipate he will be able to return to independent gait with outpatient PT for gait and balance training. Impairments are contributing to the following functional limitations: AMPAC score CMS Score: 46.58% Patient is assessed as a Moderate 23547 complexity based on the following: History: See above Examination: See above Presentation: Evolving Decision Making: AMPAC score CMS Score: 46.58% Goals: Not applicable due to plans for discharge to home, recommend outpatient PT follow-up Plan of Care/Treatment Plan: PT eval only DISCHARGE RECOMMENDATIONS: Home with , FWW for gait stability, outpatient PT recommended for balance and gait training TREATMENT CODE/TIME: 25 minutes IE 1383 G Codes in the area mobility of walking and moving around: current status [id number] CK; projected status GP [id number] discharge status (if discharging) GP G8980 CK based on AMPAC scores. Tina Bonner PT Disclaimer: This note was created using [employer] voice recognition software. It was reviewed for major content. However, there may be multiple small discrepancies and errors due to the voice recognition aspects of the software.
--- NOTE | 2018-06-22 14:04 | IN_ITS ---
Date of service: 06/22/18 Time of Service: 13:34 PT Notes Inpatient Physical Therapy Evaluation Date: 06/14/2018 Referring Doctor: Cas Prather PT Orders: PT CONSULT: Unsteady/dizzy Precautions: Standard precautions Patient Profile/Admitting Diagnosis: Patient is a 77-year-old male admitted with pulmonary embolism, deep vein thrombosis right lower extremity, lung nodules, hepatic lesion, new onset left visual field deficit PMHX: Chronic lymphatic leukemia, coronary artery disease s/p coronary artery bypass graft x2, peripheral arterial occlusive disease, varicose veins, osteoarthritis, history of shoulder pain, hypertension, hyperlipidemia, inguinal hernia repair, amputation left ring finger, atopic dermatitis, eczema, depressive disorder, calculus of kidney and ureter, cataract extraction Social History/Home Situation: Lives with his in a house, flight of steps with railing to enter. Baseline mobility independent gait without assistive device, independent with ADLs. 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 States he has used a cane in the community intermittently. Equipment Owned/DME: Single-point cane Subjective: Patient lying in bed watching TV, agreeable to PT consult. Reports he has new onset dizziness that presents primarily in the back of his head, he describes it as lightheadedness . Reports it is constant does not change with positional changes. Nursing took orthostatic blood pressures earlier today see nursing notes for details, patient reports there is minimal change in blood pressure with position changes. Patient's primary concern is decreased balance compared to his baseline, he is interested in obtaining a front wheel walker to improve gait stability, he is open to outpatient physical therapy for balance and gait training. Objective: General Observation: Patient wearing glasses, telemetry Mental Status: A& O x3 Pain: No complaints of pain. Reports generalized dizziness/lightheadedness at the posterior left head that is constant. Vision: Patient is able to track finger throughout all visual jewell equally. Reports seeing spots in his visual jewell left and right. Reports peripheral vision intact when looking straight ahead. Motor Control: Intact bilateral hands thumb to finger opposition's, intact heel to [place] bilaterally, intact finger to nose bilaterally. ROM: Right Upper Extremity: AROM WNL Left Upper Extremity: AROM WNL Right Lower Extremity: AROM WNL Left Lower Extremity: AROM WNL Strength: Right Upper Extremity: 5/5 throughout Left Upper Extremity: 5/5 throughout Right Lower Extremity: 5/5 throughout Left Lower Extremity: 5/5 throughout Bed Mobility/Transfers: Supine?sit: Independent Sit to stand: Independent Stand to sit: Independent Sit to supine: Independent Gait: No device: Gait without assistive device patient reports feeling unsteady, resulting in decreased fabi and decreased stride length. Single-point cane: Gait with single-point cane supervision 30 feet, patient reports slight unsteadiness with use of cane, would prefer use of front wheel walker FWW: Independent with use of FWW steady step through gait pattern 200 feet. Dizziness/lightheadedness present and constant, but did not affect balance or vision with gait stability. No visual deficits affecting balance with gait stability. Stairs: Up/down 10 steps with railing, independent Balance: Static Sitting: Normal Dynamic Sitting: Normal Static Standing: Fair Dynamic Standing: Fair Special Tests: Mobility Limitations Standardized Measure [facility]-PAC 6 clicks Basic Mobility Inpatient Short Form: Raw Score: 18 standardized Score: 43.63 CMS Score: 46.58% CMS Modifier: CK Informed Consent/Education: Patient instructed in purpose of PT consult and plan of care. Assessment: Patient is a 77 year old male referred to physical therapy services with the diagnosis of pulmonary embolism, deep vein thrombosis right lower extremity, lung nodules, hepatic lesion, new onset left visual field deficit in setting of Chronic lymphatic leukemia, coronary artery disease s/p coronary artery bypass graft x2, peripheral arterial occlusive disease, varicose veins, osteoarthritis. Patient presents with the following impairment level findings: Reports of dizziness/lightheadedness in posterior head that is constant, does not appear related to hypotension or vertigo type symptoms, appears to be related to diagnosis of possible strokes, patient reports seeing spots throughout visual field that is constant affecting his vision and balance. Patient presents with decreased static and dynamic standing balance compared to baseline, requiring use of front wheel walker for gait stability at this time. Patient is independent with transfers and independent with gait with use of FWW , he is at a functional level to be able to return to home setting with , FWW is recommended to improve gait stability initially anticipate he will be able to return to independent gait with outpatient PT for gait and balance training. Impairments are contributing to the following functional limitations: AMPAC score CMS Score: 46.58% Patient is assessed as a Moderate 26064 complexity based on the following: History: See above Examination: See above Presentation: Evolving Decision Making: AMPAC score CMS Score: 46.58% Goals: Not applicable due to plans for discharge to home, recommend outpatient PT follow-up Plan of Care/Treatment Plan: PT eval only DISCHARGE RECOMMENDATIONS: Home with , FWW for gait stability, outpatient PT recommended for balance and gait training TREATMENT CODE/TIME: 25 minutes IE 1383 G Codes in the area mobility of walking and moving around: current status [id number] CK; projected status GP [id number] discharge status (if discharging) GP G8980 CK based on AMPAC scores. Tina Bonner PT Disclaimer: This note was created using [employer] voice recognition software. It was reviewed for major content. However, there may be multiple small discrepancies and errors due to the voice recognition aspects of the software.
--- NOTE | 2018-06-22 14:26 | W.PM.DS.N ---
Date of service: 06/22/18 Time of Service: 14:26 DS: Diagnosis Discharge Diagnosis (1) Pulmonary embolism: Status: Acute (2) Hx of deep venous thrombosis: Status: Acute (3) Headache: Status: Acute (4) Benign hypertension: Status: Active Discharge Plan Disposition Patient Disposition: HOME W/HOME HEALTH SERVICE Condition: Stable Discharge Details Reason For Visit: BILATERAL PE Admit Date/Time: 06/20/18 16:19 Admit Provider: Cas Prather Attending Provider: Cas Prather Primary Care Provider: Sumit Florian [facility] Hospital Course: Handy is a pleasant 77-year-old gentleman with past medical history significant for coronary artery disease status post CABG (2010), hypertension, hyperlipidemia, CLL, recently diagnosed DVT who presents to the emergency department on 06/20/18 with complaints of ongoing exertional shortness of breath. Was seen in the emergency department on 06/08/2018 with complaints of right medial calf discomfort and swelling. Lower extremity ultrasound showed no DVT, but did suggest a greater saphenous vein superficial thrombus which lied approximately 1.5 cm distal to his saphenofemoral junction. He was started on Eliquis and discharged home. He had been feeling well up until the morning of his admission, when he began to experience shortness of breath, especially with exertion. In the ED, he had a chest CTA which revealed Partially occluding pulmonary emboli in both upper and lower lobes. Multiple pulmonary nodules as well as abnormal liver lucencies, suspicious for metastatic disease. An attempt was made to transfer him to [facility] [place], however, recommendations were made to keep the patient here at [facility] and start him on therapeutic Lovenox twice daily as this is recommended in cancer patients. His troponins were trended and found to be 0.13-0.10-0.09, likely elevated in the setting of demand. EKG in the ED showed normal sinus rhythm at 65 with frequent PACs, right bundle branch block, inferior Q waves, precordial ST changes, appeared unchanged from prior, though prior EKGs this month with significant artifact. He went on to have an echocardiogram which revealed right heart strain with dilated RV, mild to moderate tricuspid regurgitation, mild mitral regurgitation, pulmonary systolic pressure was increased in the range of 35-40 mm hg. LVEF 40-45%. There was no prior echo to compare to, however, he did have an MPI 06/17/18 which revealed LVEF after stress of 39%. Prior to that, he had an MPI in 2016 that revealed a LVEF of 41%. He was previously on aspirin 81 mg, a statin and a beta irina. Due to the acute pulmonary emboli, no other antihypertensives were started. He may benefit from an Iglesia Inhibitor and possibly a diuretic in the future for biventricular heart failure. He remained euvolemic during his hospitalization. The day prior to his discharge, he reported a headache behind his right eye as well as left sided visual deficit. He was referred for a Brain MRI and found to have multifocal infarcts, greatest in the left superior frontal lobe, suspicious for embolic disease. MRA of the brain which revealed Mild area of narrowing in the proximal M1 segment may represent a small area of plaque or thrombus. A phone call was placed to [facility] neurology who recommended continuation of the current treatment with therapeutic Lovenox injections. He had ongoing left-sided visual field deficits as well as some concern for unsteady gait and a dizzy/lightheaded sensation. His orhtostatic vital signs were assessed and there was no change. He was evaluated by Physical Therapy who made recommendations for the patient to return home with his , FWW for gait stability, and for home PT for balance and gait training. He is not safe to drive due to his visual deficit. Despite the bilateral pulmonary emboli, he remained hemodynamically stable. He was not tachycardic, his oxygen saturation remained stable on room air, his blood pressure was stable. He was noted to be anemic, iron studies revealed anemia of chronic disease. His white blood cell count was elevated throughout his stay, this is chronically elevated due to CLL. His LFT's are elevated in the setting of newly identified liver lesions. He will have follow up labs in 2 days time to reassess CBC and CMP. Due to the concern for malignancy, his case was discussed with Dr. Medrano, who has followed his CLL in the past. She requested that he have a CT abdomen and pelvis with contrast. This will be obtained prior to discharge home. He will follow up at the [facility] on 06/23/18 at 3:30 pm. He will need further work-up to for the lung nodules and liver lesions in the setting of new bilateral PEs. He will have follow up labs in 2 days, on 06/24/18 including CBC and CMP. He will have a palliative consult upon discharge. His ECHO did not include a bubble study, this may be helpful to assess for a cardiac defect. No defect was noted on the echo obtained during his hospitalization. He has been trained to give himself Lovenox injections and will continue the injections upon his discharge home. He will be referred for home PT and OT as he has experienced new CVAs and has visual and gait deficits. He was scheduled to see Cardiology on the day of discharge, but was an inpatient at the time. The appointment was cancelled. Dr. Lam did not feel that he needed to continue to follow the patient. His PCP can refer him back to Cardiology on an as needed basis. He will follow up with his PCP as scheduled. Home Meds and New Rx's Prescriptions: New pantoprazole 40 mg Tablet,Delayed Release (Dr/Ec) 40 mg PO DAILY@0730 Qty: 30 RF: 0 enoxaparin 100 mg/mL Syringe 100 mg subcut Q12H Qty: 60 RF: 0 Continue multivitamin [Daily Multi-Vitamin] 1 EACH tablet 1 tab PO DAILY RF: 0 aspirin [Ecotrin Low Strength] 81 MG tablet,delayed release (DR/EC) 81 tab PO DAILY RF: 0 nitroglycerin [Nitrostat] 0.4 MG tablet, sublingual 1 tab Sublingual PRN Qty: 25 RF: 4 atorvastatin 80 MG tablet 80 mg PO DAILY 90 Days Qty: 90 RF: 3 metoprolol tartrate 50 MG tablet 1 tab PO DAILY 90 Days Qty: 90 RF: 3 mometasone [Elocon] 15 GM cream 60 gm Topical QD PRN 90 Days Qty: 3 RF: 3 escitalopram oxalate [Lexapro] 10 MG tablet 1 tab PO DAILY 90 Days Qty: 90 RF: 3 vitamin B complex [Bal B-50] 1 EACH tablet 1 tab PO DAILY RF: 0 cholecalciferol (vitamin D3) 1,000 UNIT tablet 1,000 unit PO DAILY RF: 0 Discontinued mometasone [Elocon] 15 GM cream 1 paula Topical DAILY PRNQty: 1 RF: 0 apixaban [Eliquis] 5 mg tablet 5 mg .ROUTE BID Qty: 60 RF: 0 Discharge Instructions Instructions: Pulmonary Embolism (DC) Additional Instructions: Stop taking Apixiban (Eliquis). Take Lovenox as directed, two times daily. You have a follow up appointment with [facility] tomorrow at 3:30. You will need to have follow up labs on 06/24/18 to reassess your blood counts and liver function. Follow up with your PCP as scheduled. Follow up with [facility] [place] for further work up of the liver lesions noted on CT scan. Stand Alone Forms: Nursing Discharge Form Referrals: Sumit Florian [Primary Care Provider] - 06/29/18 3:20 pm Alfredo Lam MD [MD CONSULTING PHYSICIAN] - Ready,Felisa Mahoney MD [ [facility] STAFF PHYSICIAN] - (Palliative, per request.) Activity:: Activity as Tolerated Equipment/Supplies:: Walker Diet:: As Tolerated Discharge Orders Other Ambulatory Orders: Complete Blood Count w/Diff (Routine) Location: Determined by Patient Ordered By: Tonya Paniagua Comprehensive Metabolic Panel (Routine) Location: Determined by Patient Ordered By: Tonya Paniagua Exam Narrative Exam Narrative: General: 77 year old obese male. Well developed and well nourished. No acute distress. Alert and Oriented x3. Pleasant and cooperative. HEENT: Normocephalic, Atraumatic. Conjunctiva clear, sclera non-icteric. PERRLA. EOMI. Moist mucous membranes, oropharynx clear. Neck supple, no JVD, thyromegaly or lymphadenopathy. Cardiovascular: Regular rate and rhythm, normal S1 and S2, no S3 or S4. No murmur, rub, gallop. Respiratory: Chest expansion symmetrical, respirations even and unlabored. Lung sounds diminished bilaterally, no adventitious breath sounds appreciated. GI: Abdomen round, soft, non-tender to palpation. Normoactive bowel sounds in all 4 quadrants. No hepatosplenomegaly or prominent masses. Extremities: Lower extremities without deformity or edema. Areas of excoriation noted to bilateral shins consistent with eczema Neurological: Note is made of left-sided visual field deficit, otherwise, non-focal. Psychiatric: pleasant and cooperative. Speech clear and articulate. Mood and affect normal. DS: Data Vitals/I&O Vitals and I&O: Vital Signs Temperature 36.9 C 06/22/18 11:40 Temperature Source Tympanic 06/22/18 11:40 Pulse 57 L 06/22/18 11:40 Pulse Rhythm Regular 06/22/18 08:00 Pulse 80 06/20/18 19:40 Respiratory Rate 18 06/22/18 11:40 Respiratory Effort Non-Labored 06/22/18 08:00 Respiratory Depth Normal 06/22/18 08:00 Respiratory Pattern Normal 06/22/18 08:00 Blood Pressure 118/65 06/22/18 11:40 Blood Pressure Mean 88 06/20/18 16:46 Blood Pressure Position Supine 06/20/18 10:37 Pulse Oximetry 95 06/22/18 11:40 Oxygen Delivery Method Room Air 06/22/18 11:40 Oxygen Flow Rate 0 06/22/18 11:40 Pain Level 2 06/21/18 11:37 Comment 06/20/18 23:45 Intake & Output 06/21/18 06/22/18 06/22/18 23:59 11:59 23:59 Intake Total 480 / 480 240 / 240 Balance 480 / 480 240 / 240 Weight 94.8 kg Intake: IV Oral 480 / 480 240 / 240 Other: Comment Patient voided independently 2 times through out the night, unseen Voiding Methods Toilet Completed studies during hospitalization [Text1]: 06/20/[address]: CHEST CT FOR PULMONARY EMBOLISM: CT angiography was performed with multi slice acquisition and multi planar and 3D reconstruction. The pulmonary arteries are well opacified with IV contrast. Filling defects are seen in right lower lobe pulmonary artery branches, most of which appear partially occluding. Small filling defects are seen in right upper lobe, as well as right middle lobe pulmonary artery branches. A small filling defect is seen in a left upper lobe pulmonary artery branch. The patient is status post CABG. The aorta appears intact. There are no pleural or pericardial effusions. There are multiple small bilateral pulmonary nodules, in both upper and lower lobes. The largest are in the right lower lobe posteriorly. There is no evidence of pulmonary infarct or acute infiltrates. There are mild underlying emphysematous changes. Multiple low density lesions are noted in the liver. No adenopathy is seen. No new destructive bony lesions are identified. IMPRESSION: Partially occluding pulmonary emboli in both upper and lower lobes. Multiple pulmonary nodules as well as abnormal liver lucencies, suspicious for metastatic disease. ECHO 06/21/18: Impressions: Frequent ectopy was noted on this study, making this study technically difficult for the assessment of cardiac function. Summary: 1. Left ventricle: The cavity size was normal. Wall thickness was increased in a pattern of mild LVH. Systolic function was mildly to moderately reduced. The estimated ejection fraction was 40-45%. Diffuse hypokinesis with regional variations. 2. Mitral valve: There was mild regurgitation. 3. Right ventricle: The cavity size was dilated (basal diameter 5.1 cm). Wall thickness was normal. Systolic function was reduced. 4. Tricuspid valve: There was mild-moderate regurgitation. 5. Pulmonary arteries: Pulmonary systolic pressure was increased, in the range of 35mm Hg to 40mm Hg. MRA OF THE BRAIN: A 3D [id number]-[id number] study was performed. There is origin of the left posterior cerebral artery. 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 There is no evidence of occlusion or aneurysm. There is a focal irregularity within the proximal M1 segment of the left middle cerebral artery, which could represent a small amount of plaque or thrombus. IMPRESSION: Mild area of narrowing in the proximal M1 segment may represent a small area of plaque or thrombus. MRI OF THE BRAIN: T2 sagittal, T1, T2, FLAIR, diffusion, gradient-echo axial and postgadolinium T1 axial and coronal sequences were performed. There is an area of restricted diffusion superiorly in the left frontal lobe. There are a few other tiny areas of restricted diffusion in the superior left frontal lobe, superior left parietal lobe and posterior right occipital lobe. The findings are consistent with acute infarcts. Due to the multiplicity, embolic source is likely. There is no evidence of abnormal enhancement following IV gadolinium. There is no evidence of metastatic disease. The ventricles are normal in size. Orbits, pituitary, sinuses and mastoid air cells are unremarkable. There is an incidental small cyst in the left parotid gland. IMPRESSION: Multifocal infarcts, greatest in the left superior frontal lobe, suspicious for embolic disease. 06/22/18: CT ABD/PELVIS PENDING Labs on day of discharge: Labs from last 24 hours 06/22/18 06/22/18 08:40 08:40 WBC 25.05 H* RBC 2.88 L Hgb 9.9 L Hct 29.5 L MCV 102.4 H MCH 34.4 H MCHC 33.6 RDW 18.7 H Plt Count 201 MPV 9.9 Total Bilirubin 4.3 H Conjugated Bilirubin 1.00 H AST 57 H ALT 45 Alkaline Phosphatase 239 H Total Protein 7.1 Albumin 3.4 PFSH Family History Mother Cerebrovascular accident Father Heart disease Brother Neoplasm Medical History CAD (coronary artery disease) (Chronic) Social History Smoking/Tobacco Use Status: Former Tobacco Use Surgical History CARDIAC CATH Extraction of cataract (07/05/14) Repair of inguinal hernia
--- NOTE | 2018-06-22 14:29 | DSE_ITS ---
Date of service: 06/22/18 Time of Service: 14:26 DS: Diagnosis Discharge Diagnosis (1) Pulmonary embolism: Status: Acute (2) Hx of deep venous thrombosis: Status: Acute (3) Headache: Status: Acute (4) Benign hypertension: Status: Active Discharge Plan Disposition Patient Disposition: HOME W/HOME HEALTH SERVICE Condition: Stable Discharge Details Reason For Visit: BILATERAL PE Admit Date/Time: 06/20/18 16:19 Admit Provider: Cas Prather Attending Provider: Cas Prather Primary Care Provider: Sumit Florian [facility] Hospital Course: Handy is a pleasant 77-year-old gentleman with past medical history significant for coronary artery disease status post CABG (2010), hypertension, hyperlipidemia, CLL, recently diagnosed DVT who presents to the emergency department on 06/20/18 with complaints of ongoing exertional shortness of breath. Was seen in the emergency department on 06/08/2018 with complaints of right medial calf discomfort and swelling. Lower extremity ultrasound showed no DVT, but did suggest a greater saphenous vein superficial thrombus which lied approximately 1.5 cm distal to his saphenofemoral junction. He was started on Eliquis and discharged home. He had been feeling well up until the morning of his admission, when he began to experience shortness of breath, especially with exertion. In the ED, he had a chest CTA which revealed Partially occluding pulmonary emboli in both upper and lower lobes. Multiple pulmonary nodules as well as abnormal liver lucencies, suspicious for metastatic disease. [place] attempt [place] to [place] [facility] [place], however, recommendations were made to keep the patient here at [facility] and start him on therapeutic Lovenox twice daily as this is recommended in cancer patients. His troponins were trended and found to be 0.13-0.10-0.09, likely elevated in the setting of demand. EKG in the ED showed normal sinus rhythm at 65 with frequent PACs, right bundle branch block, inferior Q waves, precordial ST changes, appeared unchanged from prior, though prior EKGs this month with significant artifact. He went on to have an echocardiogram which revealed right heart strain with dilated RV, mild to moderate tricuspid regurgitation, mild mitral regurgitation , pulmonary systolic pressure was increased in the range of 35-40 mm hg. LVEF 40 -45%. There was no prior echo to compare to, however, he did have an MPI which revealed LVEF after stress of 39%. Prior to that, he had an MPI in 2016 that revealed a LVEF of 41%. He was previously on aspirin 81 mg, a statin and a beta irina. Due to the acute pulmonary emboli, no other antihypertensives were started. He may benefit from an Iglesia Inhibitor and possibly a diuretic in the future for biventricular heart failure. He remained euvolemic during his hospitalization. The day prior to his discharge, he reported a headache behind his right eye as well as left sided visual deficit. He was referred for a Brain MRI and found to have multifocal infarcts, greatest in the left superior frontal lobe, suspicious for embolic disease. MRA of the brain which revealed Mild area of narrowing in the proximal M1 segment may represent a small area of plaque or thrombus. A phone call was placed to [facility] neurology who recommended continuation of the current treatment with therapeutic Lovenox injections. He had ongoing left-sided visual field deficits as well as some concern for unsteady gait and a dizzy/lightheaded sensation. His orhtostatic vital signs were assessed and there was no change. He was evaluated by Physical Therapy who made recommendations for the patient to return home with his , FWW for gait stability, and for home PT for balance and gait training. He is not safe to drive due to his visual deficit. Despite the bilateral pulmonary emboli, he remained hemodynamically stable. He was not tachycardic, his oxygen saturation remained stable on room air, his blood pressure was stable. He was noted to be anemic, iron studies revealed anemia of chronic disease. His white blood cell count was elevated throughout his stay, this is chronically elevated due to CLL. His LFT's are elevated in the setting of newly identified liver lesions. He will have follow up labs in 2 days time to reassess CBC and CMP. Due to the concern for malignancy, his case was discussed with Dr. Medrano, who has followed his CLL in the past. She requested that he have a CT abdomen and pelvis with contrast. This will be obtained prior to discharge home. He will follow up at the [facility] on 06/23/18 at 3:30 pm. He will need further work- up to for the lung nodules and liver lesions in the setting of new bilateral PEs. He will have follow up labs in 2 days, on 06/24/18 including CBC and CMP. He will have a palliative consult upon discharge. His ECHO did not include a bubble study, this may be helpful to assess for a cardiac defect. No defect was noted on the echo obtained during his hospitalization. He has been trained to give himself Lovenox injections and will continue the injections upon his discharge home. He will be referred for home PT and OT as he has experienced new CVAs and has visual and gait deficits. He was scheduled to see Cardiology on the day of discharge, but was an inpatient at the time. The appointment was cancelled. Dr. Lam did not feel that he needed to continue to follow the patient. His PCP can refer him back to Cardiology on an as needed basis. He will follow up with his PCP as scheduled. Home Meds and New Rx's Prescriptions: New pantoprazole 40 mg Tablet,Delayed Release (Dr/Ec) 40 mg PO DAILY@0730 Qty: 30 RF: 0 enoxaparin 100 mg/mL Syringe 100 mg subcut Q12H Qty: 60 RF: 0 Continue multivitamin [Daily Multi-Vitamin] 1 EACH tablet 1 tab PO DAILY RF: 0 aspirin [Ecotrin Low Strength] 81 MG tablet,delayed release (DR/EC) 81 tab PO DAILY RF: 0 nitroglycerin [Nitrostat] 0.4 MG tablet, sublingual 1 tab Sublingual PRN Qty: 25 RF: 4 atorvastatin 80 MG tablet 80 mg PO DAILY 90 Days Qty: 90 RF: 3 metoprolol tartrate 50 MG tablet 1 tab PO DAILY 90 Days Qty: 90 RF: 3 mometasone [Elocon] 15 GM cream 60 gm Topical QD PRN 90 Days Qty: 3 RF: 3 escitalopram oxalate [Lexapro] 10 MG tablet 1 tab PO DAILY 90 Days Qty: 90 RF: 3 vitamin B complex [Bal B-50] 1 EACH tablet 1 tab PO DAILY RF: 0 cholecalciferol (vitamin D3) 1,000 UNIT tablet 1,000 unit PO DAILY RF: 0 Discontinued mometasone [Elocon] 15 GM cream 1 paula Topical DAILY PRNQty: 1 RF: 0 apixaban [Eliquis] 5 mg tablet 5 mg .ROUTE BID Qty: 60 RF: 0 Discharge Instructions Instructions: Pulmonary Embolism (DC) Additional Instructions: Stop taking Apixiban (Eliquis). Take Lovenox as directed, two times daily. You have a follow up appointment with [facility] tomorrow at 3: 30. You will need to have follow up labs on 06/24/18 to reassess your blood counts and liver function. Follow up with your PCP as scheduled. Follow up with [facility] for further work up of the liver lesions noted on CT scan. Stand Alone Forms: Nursing Discharge Form Referrals: Sumit Florian [Primary Care Provider] - 06/29/18 3:20 pm Alfredo Lam MD [MD CONSULTING PHYSICIAN] - Ready,Felisa Mahoney MD [ [facility] STAFF PHYSICIAN] - (Palliative, per request.) Activity:: Activity as Tolerated Equipment/Supplies:: Walker Diet:: As Tolerated Discharge Orders Other Ambulatory Orders: Complete Blood Count w/Diff (Routine) Location: Determined by Patient Ordered By: Tonya Paniagua Comprehensive Metabolic Panel (Routine) Location: Determined by Patient Ordered By: Tonya Paniagua Exam Narrative Exam Narrative: General: 77 year old obese male. Well developed and well nourished. No acute distress. Alert and Oriented x3. Pleasant and cooperative. HEENT: Normocephalic, Atraumatic. Conjunctiva clear, sclera non-icteric. PERRLA. EOMI. Moist mucous membranes, oropharynx clear. Neck supple, no JVD, thyromegaly or lymphadenopathy. Cardiovascular: Regular rate and rhythm, normal S1 and S2, no S3 or S4. No murmur, rub, gallop. Respiratory: Chest expansion symmetrical, respirations even and unlabored. Lung sounds diminished bilaterally, no adventitious breath sounds appreciated. GI: Abdomen round, soft, non-tender to palpation. Normoactive bowel sounds in all 4 quadrants. No hepatosplenomegaly or prominent masses. Extremities: Lower extremities without deformity or edema. Areas of excoriation noted to bilateral shins consistent with eczema Neurological: Note is made of left-sided visual field deficit, otherwise, non- focal. Psychiatric: pleasant and cooperative. Speech clear and articulate. Mood and affect normal. DS: Data Vitals/I&O Vitals and I&O: Vital Signs Temperature 36.9 C 06/22/18 11:40 Temperature Source Tympanic 06/22/18 11:40 Pulse 57 L 06/22/18 11:40 Pulse Rhythm Regular 06/22/18 08:00 Pulse 80 06/20/18 19:40 Respiratory Rate 18 06/22/18 11:40 Respiratory Effort Non-Labored 06/22/18 08:00 Respiratory Depth Normal 06/22/18 08:00 Respiratory Pattern Normal 06/22/18 08:00 Blood Pressure 118/65 06/22/18 11:40 Blood Pressure Mean 88 06/20/18 16:46 Blood Pressure Position Supine 06/20/18 10:37 Pulse Oximetry 95 06/22/18 11:40 Oxygen Delivery Method Room Air 06/22/18 11:40 Oxygen Flow Rate 0 06/22/18 11:40 Pain Level 2 06/21/18 11:37 Comment 06/20/18 23:45 Intake & Output 06/21/18 06/22/18 06/22/18 23:59 11:59 23:59 Intake Total 480 / 480 240 / 240 Balance 480 / 480 240 / 240 Weight 94.8 kg Intake: IV Oral 480 / 480 240 / 240 Other: Comment Patient voided independently 2 times through out the night, unseen Voiding Methods Toilet Completed studies during hospitalization [Text1]: 06/20/[address]: CHEST CT FOR PULMONARY EMBOLISM: CT angiography was performed with multi slice acquisition and multi planar and 3D reconstruction. The pulmonary arteries are well opacified with IV contrast. Filling defects are seen in right lower lobe pulmonary artery branches, most of which appear partially occluding. Small filling defects are seen in right upper lobe, as well as right middle lobe pulmonary artery branches. A small filling defect is seen in a left upper lobe pulmonary artery branch. The patient is status post CABG. The aorta appears intact. There are no pleural or pericardial effusions. There are multiple small bilateral pulmonary nodules, in both upper and lower lobes. The largest are in the right lower lobe posteriorly. There is no evidence of pulmonary infarct or acute infiltrates. There are mild underlying emphysematous changes. Multiple low density lesions are noted in the liver. No adenopathy is seen. No new destructive bony lesions are identified. IMPRESSION: Partially occluding pulmonary emboli in both upper and lower lobes. Multiple pulmonary nodules as well as abnormal liver lucencies, suspicious for metastatic disease. ECHO 06/21/18: Impressions: Frequent ectopy was noted on this study, making this study technically difficult for the assessment of cardiac function. Summary: 1. Left ventricle: The cavity size was normal. Wall thickness was increased in a pattern of mild LVH. Systolic function was mildly to moderately reduced. The estimated ejection fraction was 40-45%. Diffuse hypokinesis with regional variations. 2. Mitral valve: There was mild regurgitation. 3. Right ventricle: The cavity size was dilated (basal diameter 5.1 cm). Wall thickness was normal. Systolic function was reduced. 4. Tricuspid valve: There was mild-moderate regurgitation. 5. Pulmonary arteries: Pulmonary systolic pressure was increased, in the range of 35mm Hg to 40mm Hg. MRA OF THE BRAIN: A 3D [id number] study was performed. There is origin of the left posterior cerebral artery. 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 There is no evidence of occlusion or aneurysm. There is a focal irregularity within the proximal M1 segment of the left middle cerebral artery, which could represent a small amount of plaque or thrombus. IMPRESSION: Mild area of narrowing in the proximal M1 segment may represent a small area of plaque or thrombus. MRI OF THE BRAIN: T2 sagittal, T1, T2, FLAIR, diffusion, gradient-echo axial and postgadolinium T1 axial and coronal sequences were performed. There is an area of restricted diffusion superiorly in the left frontal lobe. There are a few other tiny areas of restricted diffusion in the superior left frontal lobe, superior left parietal lobe and posterior right occipital lobe. The findings are consistent with acute infarcts. Due to the multiplicity, embolic source is likely. There is no evidence of abnormal enhancement following IV gadolinium. There is no evidence of metastatic disease. The ventricles are normal in size. Orbits, pituitary, sinuses and mastoid air cells are unremarkable. There is an incidental small cyst in the left parotid gland. IMPRESSION: Multifocal infarcts, greatest in the left superior frontal lobe, suspicious for embolic disease. 06/22/18: CT ABD/PELVIS PENDING Labs on day of discharge: Labs from last 24 hours 06/22/18 06/22/18 08:40 08:40 WBC 25.05 H* RBC 2.88 L Hgb 9.9 L Hct 29.5 L MCV 102.4 H MCH 34.4 H MCHC 33.6 RDW 18.7 H Plt Count 201 MPV 9.9 Total Bilirubin 4.3 H Conjugated Bilirubin 1.00 H AST 57 H ALT 45 Alkaline Phosphatase 239 H Total Protein 7.1 Albumin 3.4 PFSH Family History Mother Cerebrovascular accident Father Heart disease Brother Neoplasm Medical History CAD (coronary artery disease) (Chronic) Social History Smoking/Tobacco Use Status: Former Tobacco Use Surgical History CARDIAC CATH Extraction of cataract (07/05/14) Repair of inguinal hernia
--- NOTE | 2018-06-22 15:03 | CMDISCH_ITS ---
LACE Index Scoring Tool - Questions: Length of Stay (in days): 3 Acuity (Admit via E.D.?): Yes Comorbidities: Any Tumor E.D. Visits: 4 - Answers: Total Score: 12 Risk of Readmission: High Risk Care Management Discharge Reason for Hospitalization: Bilateral PE's Discharge Plan: Handy will discharge home when ready per MD. SINGH filled MD prescription for new FWW through [facility] at patient request. SINGH faxed Lovenox prescription to [facility] in [place]; Sally called to notify of $9 copay for sixty syringes. Handy reported feeling more comfortable with managing the Lovenox at home. Handy will follow up with [facility], his PCP, and Palliative Care as an outpatient (CM provided education materials and discussed consult with Handy who would like to follow up with Dr. Rios at [facility]). Handy will transport home via private vehicle with his , Milla. Patient/Family Education Needs: Reviewed community based supports, prescription coverage, DME providers and process, Palliative Care consulation, discharge instructions-discussed self care needs upon discharge Ask Me Three. Services Needed at Discharge: DME Agency ([facility]: FWW), Home Health Care Services (New PT/OT)
--- NOTE | 2018-06-22 15:21 | DI.CT_ITS ---
SYMPTOM/DIAGNOSIS: NEW LIVER LESIONS AND LUNG NODULES WITH BILAT PE ABDOMINAL AND PELVIC CT: 06/22/18 CT examination of the abdomen and pelvis was performed with a bolus infusion of 100 cc Omnipaque 350 and ingestion of dilute barium. Recent chest CT showed multiple basilar intrapulmonary nodules and pulmonary embolic disease. There are innumerable hepatic poorly defined low attenuation lesions consistent with widespread hepatic metastasis with tumor burden at least 50% of the hepatic volume. Spleen is grossly unremarkable in appearance. There is abnormal appearance of the uncinate process of the pancreas which is poorly defined with areas of heterogeneous attenuation. There are peripancreatic increased nodes and increased fat attenuation. Enlarged portal nodes noted. Enlarged nodes noted in periaortic in paracaval chains, the largest measuring about 4 cm in diameter. There is right inguinal yolie enlargement, the largest node measures about 27 mm in diameter. No gross pelvic adenopathy seen. Mild bilateral common and external iliac adenopathy noted, largest common iliac node on the left measures 16 mm in diameter. There are apparent multiple bilateral renal cysts. There is a nonobstructing left renal calculus. No hydronephrosis. Adrenals are unremarkable in appearance. No abdominal wall hernia seen. No focal bowel pathology identified. 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 Pelvic and inguinal adenopathy appears to be present. Note is also made of a rounded low attenuation lesion in the T-11 vertebral body which is suspicious for metastatic disease. Correlation with bone scan or contrast enhanced MRI recommended.
--- NOTE | 2018-06-22 16:23 | PDOC.HHF2F ---
1. Encounter Date and Reason I certify that SHAUNA PHELAN was seen by Tonya Paniagua on 06/22/18 and that I had a [id number] encounter with this patient that meets the physician face to face encounter requirements. 2. Clinical Findings Supporting Skilled Need and Homebound Status I certify that home health services are medically necessary, include either intermittent group home and/or physical/speech therapy, and that this patient is homebound in that absences from the home require considerable and taxing effort and are infrequent or of short duration, or are attributable to the need to receive medical care. [X] (a) Attached documentation from encounter provides clinical findings supporting skilled need and homebound status (including what assistance patient requires to leave the home). The encounter with the patient was in whole, or in part, for the following medical condition, which is the primary reason for home health care: BILATERAL PE, new CVA with visual deficit and gait disturbance. New lung nodules and liver lesions. Fci: Needed for medication management, monitor medical conditions. Physical Therapy: Needed for stability and balance and strength and endurance s/p acute CVA with visual deficit and gait disturbance. OT: Needed to evaluate/assess ability to preform ADL/IADLs and make recommendations as needed. Speech Therapy: Homebound: Unable to leave home without assistance. 3. Certification and Authentication I certify that I composed the above information based on my clinical judgement relating to this patient's medical condition and, if applicable, clinical findings communicated to me by the NPP or inpatient physician who performed the Home Health Referral. All further orders will be obtained through ___Dr. Florian (Community Based Physician - PCP)
--- NOTE | 2018-06-22 16:27 | HHF2F_ITS ---
1. Encounter Date and Reason I certify that SHAUNA PHELAN was seen by Tonya Paniagua on 06/22/18 and that I had a [id number] encounter with this patient that meets the physician face to face encounter requirements. 2. Clinical Findings Supporting Skilled Need and Homebound Status I certify that home health services are medically necessary, include either intermittent care home and/or physical/speech therapy, and that this patient is homebound in that absences from the home require considerable and taxing effort and are infrequent or of short duration, or are attributable to the need to receive medical care. [X] (a) Attached documentation from encounter provides clinical findings supporting skilled need and homebound status (including what assistance patient requires to leave the home). The encounter with the patient was in whole, or in part, for the following medical condition, which is the primary reason for home health care: BILATERAL PE, new CVA with visual deficit and gait disturbance. New lung nodules and liver lesions. Fdc: Needed for medication management, monitor medical conditions. Physical Therapy: Needed for stability and balance and strength and endurance s/ p acute CVA with visual deficit and gait disturbance. OT: Needed to evaluate/assess ability to preform ADL/IADLs and make recommendations as needed. Speech Therapy: Homebound: Unable to leave home without assistance. 3. Certification and Authentication I certify that I composed the above information based on my clinical judgement relating to this patient's medical condition and, if applicable, clinical findings communicated to me by the NPP or inpatient physician who performed the Home Health Referral. All further orders will be obtained through ___Dr. Florian ( Community Based Physician - PCP)
--- NOTE | 2018-06-22 17:23 | DI.VRAD_ITS ---
EXAM: CT Abdomen and Pelvis With Intravenous Contrast EXAM DATE/TIME: 06/22/2018 3:21 PM CLINICAL HISTORY: 77 years old, male; Abnormal findings; Abnormal radiologic finding of the abdomen; Radiologic exam and body structure: Pe CT; Patient HX: New liver lesions and lung nodules w/ bilat pe CT on 06/20; Additional info: Abd/pelv performed with biphasic liver images TECHNIQUE: Axial computed tomography images of the abdomen and pelvis with intravenous contrast. COMPARISON: No relevant prior studies available. FINDINGS: Lower thorax: Multiple pulmonary nodules within both lung bases suspicious for pulmonary metastases. ABDOMEN: Liver: Innumerable low-density lesions scattered throughout the liver consistent with hepatic metastases. No intrahepatic bile duct dilatation. Gallbladder and bile ducts: Unremarkable. No duct dilatation. No stones. Pancreas: 2 cm ill-defined low-density mass within the uncinate process of the pancreas with probable invasion of the superior wall of the horizontal duodenum. No duct dilatation. Spleen: Unremarkable. No splenomegaly. Adrenals: Normal. No mass. Kidneys and ureters: Multiple cysts within both kidneys. No renal stone. No hydronephrosis. Stomach and bowel: Unremarkable. No obstruction. No mucosal thickening. Appendix: No evidence of appendicitis. PELVIS: Bladder: Unremarkable as visualized. Reproductive: Unremarkable as visualized. ABDOMEN and PELVIS: Intraperitoneal space: Unremarkable. No free air. No significant fluid collection. Bones/joints: Degenerative changes within the lower lumbar spine. No osteolytic or osteoblastic lesion. Soft tissues: Unremarkable. Vasculature: Unremarkable. No abdominal aortic aneurysm. Lymph nodes: There are enlarged retroperitoneal lymph nodes within the upper abdomen. IMPRESSION: 1. Ill-defined low-density mass within the uncinate process of the pancreas. The findings are highly suspicious for pancreatic cancer with invasion of the horizontal duodenum and metastatic retroperitoneal lymphadenopathy. 2. Innumerable hepatic low density lesions consistent with metastases. 3. Multiple tiny pulmonary nodules within both lung bases suspicious for metastatic disease. Dictated and Authenticated by: Lorenzo Denny MD. Ordering:JAYMIE PETERS MD
--- NOTE | 2018-06-23 12:38 | PDOC.CMPRO ---
Care Management Progress Note Sherin Guzman of [facility] called to report Handy did not feel he needed home health supports at this time. CM agreed to discuss with Handy when providing his call back.
--- NOTE | 2018-06-23 12:44 | CMPROGNOTE_ITS ---
Care Management Progress Note Sherin Guzman of [facility] called to report Handy did not feel he needed home health supports at this time. CM agreed to discuss with Handy when providing his call back.
== END 2018-06-22 18:07 | disposition home health service (06) | DRG 175 ==
LOC: ER 16:32 → MS 17:01
PROVIDERS: Nurse Practitioner; Nurse Practitioner Primary Care; Admitting Provider Internal Medicine; Emergency Provider Student in an Organized Health Care Education/Training Program; PCP Family Medicine; Visit Provider Internal Medicine
DX: I26.99 Other pulmonary embolism without acute cor pulmonale (principal); I63.40 Cerebral infarction due to embolism of unspecified cerebral artery; I82.811 Embolism and thrombosis of superficial veins of right lower extremity; H53.132 Sudden visual loss, left eye; C91.10 Chronic lymphocytic leukemia of B-cell type not having achieved remission; R26.81 Unsteadiness on feet; R42 Dizziness and giddiness; Z79.01 Long term (current) use of anticoagulants; R93.2 Abnormal findings on diagnostic imaging of liver and biliary tract; R91.8 Other nonspecific abnormal finding of lung field; D63.8 Anemia in other chronic diseases classified elsewhere; I08.1 Rheumatic disorders of both mitral and tricuspid valves; I51.7 Cardiomegaly; I10 Essential (primary) hypertension; I25.10 Atherosclerotic heart disease of native coronary artery without angina pectoris; E78.5 Hyperlipidemia, unspecified
CPT/HCPCS: 36415; 70544; 70553; 71275; 80053; 80076; 85027; 87449; 93005; 93306; 96372; 97162; 99223; 99232; 99239; 99285; 74177; 81003; 81015; 82272; 82607; 82728; 82746; 83540; 83550; 83880; 84443; 84484; 85025; 85610; 85730; 93010; J1650; J3490

== ENCOUNTER 2018-06-29 08:24 | Outpatient (CLI) | payer OTHER, SELFPAY | END 2018-06-29 08:44 | PROVIDERS: PCP Family Medicine; Referring Provider Nurse Practitioner Family; Visit Provider Student in an Organized Health Care Education/Training Program | DX: R07.9 Chest pain, unspecified (principal); I47.1 Supraventricular tachycardia | CPT/HCPCS: 0298T ==

== ENCOUNTER 2018-07-03 19:51 | Emergency (ER) | payer OTHER, SELFPAY ==
[2018-07-03 19:58] VITALS: BP 129/81; PULSE 87; RESP 16; TEMP 36.7; O2SAT 98
--- NOTE | 2018-07-03 20:46 | ED.GENADUL_ITS ---
Discharge Plan Disposition Patient Disposition: HOME Condition: Stable Discharge Details Chief Complaint: Orthopedic Clinical Impression: Restless legs Primary Care Provider: Sumit Florian ED Provider: Carol Eng Home Meds and New Rx's Prescriptions: New lorazepam [Ativan] 0.5 mg tablet 0.5 mg PO Q8H PRN (Reason: sleep) Qty: 7 RF: 0 No Action aspirin [Ecotrin Low Strength] 81 MG tablet,delayed release (DR/EC) 81 tab PO DAILY RF: 0 nitroglycerin [Nitrostat] 0.4 MG tablet, sublingual 1 tab Sublingual PRN Qty: 25 RF: 4 escitalopram oxalate [Lexapro] 10 MG tablet 1 tab PO DAILY 90 Days Qty: 90 RF: 3 pantoprazole 40 mg Tablet,Delayed Release (Dr/Ec) 40 mg PO DAILY@0730 Qty: 30 RF: 0 enoxaparin 100 mg/mL Syringe 100 mg subcut Q12H Qty: 60 RF: 0 metoprolol tartrate 50 MG tablet 0.5 tab PO DAILY RF: 0 Discharge Instructions Instructions: Restless Legs Syndrome (ED) Additional Instructions: Take the Ativan as needed and directed for sleep or for help with restless legs. Follow-up with your scheduled appointment with her doctor this . Call your primary care doctor's office tomorrow to schedule follow-up appointment for reevaluation to discuss the possibility of restless leg syndrome and any further recommendations for treatment for this. Return immediately to the emergency department any worsening or new concerning symptoms. Discharge Data Discharge Physician: Carol Eng Medical Decision Making 77-year-old male with a history of CLL, recent probable diagnosis of pancreatic cancer, recent diagnosis of pulmonary embolism on Lovenox who presents for complaint of restless legs. He admits to recent inactivity due to his recent hospitalization and states this is caused his restless legs. He states he has also been having difficulty sleeping due to his restless legs. Patient states it feels like a ticklish and restless sensation but denies any leg pain. Otherwise denies any acute complaints and states his shortness of breath and appetite have been stable and he denies any chest pain, abdominal pain, vomiting or diarrhea. Vitals within normal limits. Patient appears nontoxic. No acute evidence of infection, trauma or swelling noted to bilateral lower extremities. Full range of motion without tenderness or pain. Neurovascularly intact. Lungs clear to auscultation. Abdomen soft nontender. Patient states he does not want any workup for any other complaints at this time and is only requesting a medication for restless legs. Discussed with patient that there are several medication regimens for restless legs, but at this time in the emergency department, will send home with a few tabs of Ativan and a prescription for Ativan. Patient instructed to follow-up with his primary care doctor for reevaluation and for further medication management of possible restless legs. Patient instructed to return emergency department with any worsening or new concerning symptoms. HPI General Mode of arrival: ambulatory . Date/Time Provider Initiated Documentation: 07/03/18 19:52 . Limitations to Documentation: no limitations . Information obtained by: patient . HPI Narrative: Pt is a 77yo M w/ a h/o CLL, recent probable diagnosis of pancreatic cancer, and recent hospital admission for PE who presents with c/o restless legs. Pt states he is just here for a medication to help him sleep and to help with his restless legs. Patient states the sensation extends from his bilateral hips down to his feet and feels like restless and ticklish feeling. He denies any pain, numbness or weakness. Patient states since his hospitalization last month for pulmonary embolism, he has been unable to have a good night sleep and has been more inactive causing his restless legs. Patient denies any acute worsening of any of his chronic symptoms of shortness of breath. States he has had a stable diet and denies any fever, vomiting, diarrhea, chest pain or abdominal pain. Patient states he is being followed by Dr. De Luna and Dr. Bowen. States he did not mention his restless legs to either of them on his recent appointments. Patient states he feels like his restless legs are becoming worse over the past couple weeks and especially over the past few days which he feels is due to his inactivity. States he is giving himself his Lovenox injections at home. Related Data Home Medications Medication Instructions Recorded Confirmed aspirin [Ecotrin Low Strength] 81 tab PO DAILY tab-cap 11/30/12 07/03/18 nitroglycerin [Nitrostat] 1 tab SUBLINGUAL PRN #25 tab-cap 08/18/16 07/03/18 escitalopram oxalate [Lexapro] 1 tab PO DAILY 90 Days #90 tab-cap 09/28/1707/03 enoxaparin 100 mg SUBCUT Q12H #60 syrg 06/22/18 07/03/18 pantoprazole 40 mg PO DAILY@0730 #30 tab 06/22/18 07/03/18 lorazepam [Ativan] 0.5 mg PO Q8H PRN #7 tab 07/03/18 metoprolol tartrate 0.5 tab PO DAILY 07/03/18 07/03/18 Previous Rx's Medication Instructions Recorded escitalopram oxalate [Lexapro] 1 tab PO DAILY 90 Days #90 tab-cap 09/28/17 enoxaparin 100 mg SUBCUT Q12H #60 syrg 06/22/18 pantoprazole 40 mg PO DAILY@0730 #30 tab 06/22/18 lorazepam [Ativan] 0.5 mg PO Q8H PRN #7 tab 07/03/18 Allergies Allergy/AdvReac Type Severity Reaction Status Date / Time pneumococcal vaccine Allergy Intermediate Local Unverified 07/03/18 20:02 Rash, SOB General Stated Complaint: Orthopedic ANN: 3 Review of Systems Review of Systems All systems reviewed & are unremarkable except as noted in HPI and below Constitutional Reports as per HPI, Denies chills and Denies fever(s) Eyes Denies blurry vision ENT Denies dizziness, Denies sore throat and Denies throat swelling Cardiovascular Denies chest pain and Denies dyspnea Respiratory Denies dyspnea Gastrointestinal Denies abdominal pain, Denies diarrhea and Denies vomiting Genitourinary Denies hematuria and Denies dysuria Musculoskeletal Denies back pain, Denies numbness and Reports other (ticklish and restless in b/l LE) Integumentary/Breasts Denies lesions and Denies rash Neurologic Denies dizziness and Denies numbness Allergic/Immunologic Denies throat swelling PFSH CLL (chronic lymphocytic leukemia) (Acute) Hyperlipemia (Acute) Depression (Chronic) Myocardial infarction (Chronic) Peripheral vascular disease (Chronic) Pulmonary embolism (Chronic) CAD (coronary artery disease) (Chronic) Family History Mother Stroke Father Heart disease Brother Neoplasm H/O vasectomy (Acute) H/O shoulder surgery (Chronic) History of tonsillectomy (Chronic) Hx of CABG (Chronic) CARDIAC CATH Extraction of cataract (07/05/14) Repair of inguinal hernia Social History adopted: No caregiver/support person: Yes household members: spouse housing: house lives independently: Yes number of children: 2 current occupational status: retired Smoking/Tobacco Use Status: Former Tobacco Use Exam Const General: cooperative, healthy appearing and no acute distress HENMT Head: normal to inspection Mouth: oral mucosae normal Eyes General: appearance normal, both eyes and all related structures Neck Neck: normal visual inspection Resp Effort & Inspection: normal respiratory effort and able to speak in complete sentences Auscultation: clear to auscultation bilaterally Cardio Rate: regular rate Rhythm: regular rhythm GI Inspection: normal to inspection Palpation: soft, not firm, not rigid and nontender Auscultation: normal bowel sounds Back/Spine/Pelvis Thoracic/Lumbar Spine: thoracic and lumbar spine normal to inspection Pelvis: no pain with anterior-posterior compression Sacrum: no ecchymosis, no erythema, no swelling and no tenderness Coccyx: no swelling and no tenderness Skin General skin exam: no rashes or lesions noted Neuro General: alert, awake and oriented x3 Motor: muscle tone normal throughout Extrem General: normal to inspection and full ROM Right lower extremity: normal to inspection, full ROM and hip/thigh Details: normal to inspection and normal ROM; no tenderness and no swelling Left lower extremity: normal to inspection, full ROM and hip/thigh Details: normal to inspection and normal ROM; no tenderness and no swelling Other: No bilateral lower extremity edema. No tenderness to palpation of bilateral lower extremities. Bilateral DP/PT pulses intact. No erythema, edema , ecchymosis, calf tenderness Psych Appearance: grossly normal Affect: normal affect Course Vital Signs Temperature 98.1 F 07/03/18 19:58 Pulse 87 07/03/18 19:58 Respiratory Rate 16 07/03/18 19:58 Blood Pressure 129/81 07/03/18 19:58 Pulse Oximetry 98 07/03/18 19:58 Temperature 98.1 F 07/03/18 19:58 Temperature Source Temporal Artery Scan 07/03/18 19:58 Pulse 87 07/03/18 19:58 Respiratory Rate 16 07/03/18 19:58 Respiratory Effort Non-Labored 07/03/18 20:00 Blood Pressure 129/81 07/03/18 19:58 Blood Pressure Position Sitting 07/03/18 19:58 Pulse Oximetry 98 07/03/18 19:58 Oxygen Delivery Method Room Air 07/03/18 19:58 Oxygen Flow Rate 0 07/03/18 19:58 Pain Level 2 07/03/18 19:58 Comment 07/03/18 19:58
[2018-07-03] MEDS: LORazepam 0.5 MG TAB PO (20:51)
== END 2018-07-03 20:53 | disposition home or self-care (01) ==
LOC: ER 20:58
PROVIDERS: Emergency Provider Physician Assistant; PCP Family Medicine
DX: G25.81 Restless legs syndrome (principal)
CPT/HCPCS: 99283

== ENCOUNTER 2018-07-07 09:30 | Outpatient (CLI) | payer OTHER, SELFPAY ==
[2018-07-07 10:17] LABS: Abs Immature Grans 0.11 k/cumm (0.0-0.09); Absolute Lymphocyte Count 15.09 k/cumm (1.2-3.4); HCT 28.2 % (40.0-50.0); HGB 8.8 g/dL (13.5-17.5); Mean Corp. HGB Concentration 31.2 g/dL (32.0-36.0); Mean Corpuscular Hemoglobin 35.5 pg (27.0-33.0); Mean Corpuscular Volume 113.7 fL (80-95); Mean Platelet Volume 9.3 fL (8.0-11.0); Platelet Count 221 x1000/uL (130-400); RBC 2.48 m/cumm (4.50-6.00); RBC Distribution Width 25.6 % (11.8-14.1); Reticulocyte 17.4 % (0.5-2.4)
[2018-07-07 10:34] LABS: ALT 54 U/L (12-78); AST 70 U/L (15-37); Albumin 2.9 g/dL (3.4-5.0); Alkaline Phosphatase 289 U/L (46-116); Anion Gap 13.9 mmol/L (3-11); BUN 34 mg/dL (7-18); Bilirubin, Total 3.9 mg/dL (0.2-1.0); CO2 25.1 mmol/L (21.0-32.0); Calcium 8.3 mg/dL (8.5-10.1); Chloride 100 mmol/L (98-107); Estimated GFR 45.38 (mL/min/1.73m2); Glucose 102 mg/dL (70-100); Potassium 3.2 mmol/L (3.5-5.1); Sodium 139 mmol/L (136-145); Total Protein 6.8 g/dL (6.4-8.2)
[2018-07-07 10:40] LABS: LDH 1197 U/L (85-227)
[2018-07-07 11:08] LABS: White Blood Cell Count 25.54 k/cumm (4.4-10.8)
[2018-07-07 11:12] LABS: Absolute Monocyte Count 1.28 k/cumm (0.11-0.7); Absolute Neutrophil Count 8.17 k/cumm (1.2-6.7); Atypical Lymphocytes % 61
[2018-07-07 11:13] LABS: Diff Comment Manual Differential; Other Cells 2
[2018-07-07 11:14] LABS: Anisocytosis 2+; Hypochromasia 1+; Macrocytosis 2+; Poikilocytes 2+; Polychromasia Present; Schistocytes 2+; Spherocytes 1+
[2018-07-07 15:07] LABS: Bilirubin, Direct 1.59 mg/dL (0.00-0.20)
[2018-07-08 10:04] LABS: Haptoglobin <7 mg/dL (32-197)
[2018-07-08 10:26] LABS: CEA 237.4 ng/ml
[2018-07-08 14:49] LABS: CA 19-9 36066 U/mL (<35)
== END 2018-07-07 09:50 ==
PROVIDERS: PCP Family Medicine; Visit Provider Internal Medicine Hematology & Oncology
DX: C25.9 Malignant neoplasm of pancreas, unspecified (principal); C78.7 Secondary malignant neoplasm of liver and intrahepatic bile duct
CPT/HCPCS: 36415; 80053; 82248; 82378; 83010; 83615; 85025; 85045; 86301; 86880

== ENCOUNTER 2018-07-07 20:20 | Emergency (ER) | payer OTHER, SELFPAY ==
[2018-07-07 20:29] VITALS: BP 111/66; PULSE 91; RESP 17; RESP 26; TEMP 36.5; O2SAT 87
--- NOTE | 2018-07-07 20:45 | ED.GENADUL_ITS ---
Discharge Plan Disposition Patient Disposition: HOME Condition: Stable Discharge Details Chief Complaint: SOB Clinical Impression: Acute confusion Reason For Visit: MAXINE Primary Care Provider: Sumit Florian ED Provider: Sterling Clark Home Meds and New Rx's Prescriptions: Continued pramipexole 0.125 mg tablet 0.125 mg PO QPM Qty: 60 RF: 5 aspirin [Ecotrin Low Strength] 81 MG tablet,delayed release (DR/EC) 81 tab PO DAILY RF: 0 nitroglycerin [Nitrostat] 0.4 MG tablet, sublingual 1 tab Sublingual PRN Qty: 25 RF: 4 escitalopram oxalate [Lexapro] 10 MG tablet 1 tab PO DAILY 90 Days Qty: 90 RF: 3 pantoprazole 40 mg Tablet,Delayed Release (Dr/Ec) 40 mg PO DAILY@0730 Qty: 30 RF: 0 enoxaparin 100 mg/mL Syringe 100 mg subcut Q12H Qty: 60 RF: 0 metoprolol tartrate 50 MG tablet 0.5 tab PO DAILY RF: 0 lorazepam [Ativan] 0.5 mg tablet 0.5 mg PO Q8H PRN (Reason: sleep) Qty: 7 RF: 0 Discharge Instructions Additional Instructions: Your lab work did not show any significant new abnormalities Your first cat scan showed possible bleeding or was due to motion. A Second cat scan showed no bleeding or other concerning findings This confusion you had could have been from the ativan. Please only take this if needed at bedtime IF you have worsening shortness of breath, fevers or feel significantly worse return to the emergency department Medical Decision Making 77 yo male who was dx'd with PE in May and is on lovenox and denies missing doses, diagnosed with pancreatic cancer today per him and , comes in after brief confusion. HE apparently was started on ativan recently for restless legs and anxiety. Today the states he was watching television then had trouble remembering how to work the remote. He then was getting ready for bed and his told him to wipe and he wiped his nose instead. The wiped his buttocks and had bright red blood so called ems. The patient is now at his baseline and is caox4 without focla deficits and denies any slurred speech or weakness during this confusion. He has a small hemorrhoid that appears to have recently bled at 3 oclock position, guaic negative. He does have some shortness of breath but has had this since dx of his PE and is talkingin full sentences, triage noted oxygen sat of 87% but is 98% on room air on my exam. Will eval for possible sdh given his confusion and also eval for electrolyte abnormalities. He had no focal deficits or slurred speech so doubt tia/cva at this time pt's labs show no acute changes, he has been resting in bed without complaints. His chest xray is negative, head ct per vrad shows Question punctate hyperdensity in the left parietal lobe versus artifact. Consider head CT followup within 6 hours to exclude punctate hemorrhage as clinically indicated. Given this will have him stay here and have a repeat head ct done in the mo rning ct head shows no acute findings, has been stable all night walking without complaints and currently has no complaints, will d/c home Differential Diagnosis confusion, tia, electrolyte abnormality, delirium Imaging Data Radiologic Study: Attestation: I personally reviewed and interpreted this imaging study as follows: Imaging: CT Scan Radiologist's impression: Question punctate hyperdensity in the left parietal lobe versus artifact. Consider head CT followup within 6 hours to exclude punctate hemorrhage as clinically indicated Radiologic Study #2: Attestation: I personally reviewed and interpreted this imaging study as follows: Imaging: X-Ray Radiologist's impression: no acute findings Radiologic Study #3: Attestation: I personally reviewed and interpreted this imaging study as follows: Imaging: CT Scan Radiologist's impression: Mild age-appropriate atrophy and chronic microvascular change. HPI General Mode of arrival: ambulatory . Date/Time Provider Initiated Documentation: 07/07/18 20:35 . Limitations to Documentation: no limitations . Information obtained by: patient . History of Present Illness 77 year old M presents to the emergency department with the chief complaint of confusion, described as mild, Patient started experiencing this hour(s) (1) and it has been now resolved. No relieving factors improve symptom(s), No exacerbating factors reported . Patient did receive the following treatments prior to arrival, none Related Data Home Medications Medication Instructions Recorded Confirmed aspirin [Ecotrin Low Strength] 81 tab PO DAILY tab-cap 11/30/12 07/07/18 nitroglycerin [Nitrostat] 1 tab SUBLINGUAL PRN #25 tab-cap 08/18/16 07/07/18 escitalopram oxalate [Lexapro] 1 tab PO DAILY 90 Days #90 tab-cap 09/28/17 07/07/18 enoxaparin 100 mg SUBCUT Q12H #60 syrg 06/22/18 07/07/18 pantoprazole 40 mg PO DAILY@0730 #30 tab 06/22/18 07/07/18 lorazepam [Ativan] 0.5 mg PO Q8H PRN #7 tab 07/03/18 07/07/18 metoprolol tartrate 0.5 tab PO DAILY 07/03/18 07/07/18 pramipexole 0.125 mg tablet 0.125 mg PO QPM #60 tab 07/06/18 07/07/18 Previous Rx's Medication Instructions Recorded escitalopram oxalate [Lexapro] 1 tab PO DAILY 90 Days #90 tab-cap 09/28/17 enoxaparin 100 mg SUBCUT Q12H #60 syrg 06/22/18 pantoprazole 40 mg PO DAILY@0730 #30 tab 06/22/18 lorazepam [Ativan] 0.5 mg PO Q8H PRN #7 tab 07/03/18 pramipexole 0.125 mg tablet 0.125 mg PO QPM #60 tab 07/06/18 Allergies Allergy/AdvReac Type Severity Reaction Status Date / Time pneumococcal vaccine Allergy Intermediate Local Verified 07/07/18 20:37 Rash, SOB General Stated Complaint: SOB NAN: 3 Review of Systems Review of Systems All systems reviewed & are unremarkable except as noted in HPI and below Constitutional Denies chills, Denies fever(s) and Denies weakness ENT Denies change in voice Cardiovascular Denies chest pain Gastrointestinal Denies abdominal pain, Denies nausea and Denies vomiting Genitourinary Denies dysuria Musculoskeletal Denies joint swelling Integumentary/Breasts Denies rash Neurologic Denies weakness Psychiatric Denies depression Endocrine Denies cold intolerance and Denies heat intolerance PFSH CLL (chronic lymphocytic leukemia) (Acute) Hyperlipemia (Acute) CAD (coronary artery disease) (Chronic) Depression (Chronic) Myocardial infarction (Chronic) Peripheral vascular disease (Chronic) Pulmonary embolism (Chronic) H/O vasectomy (Acute) H/O shoulder surgery (Chronic) History of tonsillectomy (Chronic) Hx of CABG (Chronic) CARDIAC CATH Extraction of cataract (07/05/14) Repair of inguinal hernia Family History Mother Stroke Father Heart disease Brother Neoplasm Social History adopted: No caregiver/support person: Yes household members: spouse housing: house lives independently: Yes number of children: 2 current occupational status: retired Smoking/Tobacco Use Status: Former Tobacco Use Exam Const General: no acute distress Orientation: alert HENMT Head: normal to inspection Ears: external ears normal General nose exam: external nose normal Mouth: moist mucous membranes Eyes General: appearance normal, both eyes and all related structures Neck Neck: normal visual inspection Resp Effort & Inspection: normal respiratory effort and able to speak in complete sentences Cardio Rate: regular rate Skin General skin exam: no rashes or lesions noted Neuro General: alert and oriented x3 Extrem General: normal to inspection Psych Mental Status: mental status grossly normal Course Vital Signs Temperature 36.5 C 07/07/18 20:29 Pulse 91 H 07/07/18 20:29 Respiratory Rate 17 07/07/18 20:29 Blood Pressure 111/66 07/07/18 20:29 Pulse Oximetry 87 L 07/07/18 20:29 Temperature 36.5 C 07/07/18 20:29 Temperature Source Skin 07/07/18 20:29 Pulse 91 H 07/07/18 20:29 Respiratory Rate 26 H 07/07/18 20:29 Respiratory Effort Non-Labored 07/07/18 20:29 Respiratory Depth Normal 07/07/18 20:29 Respiratory Pattern Normal 07/07/18 20:29 Blood Pressure 111/66 07/07/18 20:29 Pulse Oximetry 87 L 07/07/18 20:29 Oxygen Delivery Method Nasal Cannula 07/07/18 20:29 Pain Level 0 07/07/18 20:29 Comment 07/07/18 20:29
--- NOTE | 2018-07-07 21:05 | DI.CT_ITS ---
SYMPTOM/DIAGNOSIS: CONFUSION NONCONTRAST HEAD CT: Comparison is made with MRI brain dated 21 Jun 2018 No intracranial hemorrhage, mass or infarct is seen. The small infarcts noted on previous MRI are not visible by CT. There is mild atrophy. The ventricles are normal in size. There is no evidence of skull fracture. The sinuses and mastoid air cells as well as orbits are unremarkable. IMPRESSION: No acute abnormality.
--- NOTE | 2018-07-07 21:08 | DI.RAD_ITS ---
SYMPTOM/DIAGNOSIS: SHORTNESS OF BREATH PA AND LATERAL CHEST: Comparison is made with 06 Jun 2018. The heart is mildly enlarged and the aorta is tortuous. The patient is status post CABG. The lungs are not well inflated on the lateral view. Small nodules are visible at the right lower lobe consistent with patient's history of metastatic disease. No acute infiltrate or effusion is seen. There is no evidence of pulmonary edema. IMPRESSION: Pulmonary nodules consistent with metastatic disease. No acute abnormality
--- NOTE | 2018-07-07 21:11 | DI.VRAD_ITS ---
EXAM: CT Head Without Contrast EXAM DATE/TIME: 07/07/2018 8:44 PM CLINICAL HISTORY: 77 years old, male; Signs and symptoms; Other: Confusion. ; Patient HX: Confusion, increased weakness. TECHNIQUE: Axial computed tomography images of the head/brain without contrast. All CT scans at this facility use at least one of these dose optimization techniques: automated exposure control; mA and/or kV adjustment per patient size (includes targeted exams where dose is matched to clinical indication); or iterative reconstruction. Coronal and sagittal reformatted images were created and reviewed. COMPARISON: MR HEAD^ROUTINE W WO 06/21/2018 3:09 PM FINDINGS: Brain: Question faint hyperdensity versus artifact in the left parietal lobe axial image 16 series 6 Mild volume loss. No significant white matter disease. No edema. Ventricles: Normal. No ventriculomegaly. Bones/joints: Normal. No acute fracture. Sinuses: Normal as visualized. No acute sinusitis. Mastoid air cells: Normal as visualized. No mastoid effusion. Soft tissues: Normal. IMPRESSION: Question punctate hyperdensity in the left parietal lobe versus artifact. Consider head CT followup within 6 hours to exclude punctate hemorrhage as clinically indicated Dictated and Authenticated by: Adan Stevens MD. Ordering:SUSAN Katz MD
--- NOTE | 2018-07-07 21:11 | DI.VRAD_ITS ---
EXAM: XR Chest, 2 Views EXAM DATE/TIME: 07/07/2018 8:44 PM CLINICAL HISTORY: 77 years old, male; Signs and symptoms; Shortness of breath; Prior surgery; Surgery date: 6+ months TECHNIQUE: XR of the chest, 2 views. COMPARISON: CR XR CHEST 2V PA LATERAL 06/06/2018 1:06 PM FINDINGS: Lungs: Mild chronic interstitial prominence No consolidation. Pleural space: No pleural effusion. No pneumothorax. Heart/Mediastinum: Grossly stable Bones/joints: Grossly stable IMPRESSION: No acute findings. Dictated and Authenticated by: Adan Stevens MD. Ordering:SUSAN Katz MD
[2018-07-07 21:22] LABS: ALT 50 U/L (12-78); AST 62 U/L (15-37); Albumin 2.7 g/dL (3.4-5.0); Alkaline Phosphatase 266 U/L (46-116); Anion Gap 10.7 mmol/L (3-11); BUN 35 mg/dL (7-18); Bilirubin, Total 3.4 mg/dL (0.2-1.0); CO2 27.3 mmol/L (21.0-32.0); CREATININE 1.34 mg/dL (0.70-1.30); Calcium 8.1 mg/dL (8.5-10.1); Chloride 101 mmol/L (98-107); Estimated GFR 51.69 (mL/min/1.73m2); Glucose 106 mg/dL (70-100); Magnesium 1.8 mg/dL (1.8-2.4); Potassium 3.3 mmol/L (3.5-5.1); Sodium 139 mmol/L (136-145); Total Protein 6.4 g/dL (6.4-8.2)
[2018-07-07 21:24] LABS: Prothrombin Time 11.2 sec (9.3-10.8)
[2018-07-07 21:25] LABS: Absolute Lymphocyte Count 14.12 k/cumm (1.2-3.4); Absolute Neutrophil Count 7.78 k/cumm (1.2-6.7); Basophils % 2.5; Eosinophils % 0.4; HCT 25.5 % (40.0-50.0); HGB 8.1 g/dL (13.5-17.5); Immature Grans % 0.4; Mean Corp. HGB Concentration 31.8 g/dL (32.0-36.0); Mean Corpuscular Hemoglobin 36.5 pg (27.0-33.0); Mean Corpuscular Volume 114.9 fL (80-95); Mean Platelet Volume 9.7 fL (8.0-11.0); Monocytes % 5.2; Neutrophils % 32.5; Platelet Count 228 x1000/uL (130-400); RBC 2.22 m/cumm (4.50-6.00); RBC Distribution Width 25.4 % (11.8-14.1); White Blood Cell Count 23.94 k/cumm (4.4-10.8)
[2018-07-07 21:29] LABS: Absolute Monocyte Count 1.24 k/cumm (0.11-0.7)
[2018-07-07 21:34] LABS: INR 1.1 (1.0-3.5)
[2018-07-07 21:52] VITALS: BP 124/55; PULSE 95; RESP 16; O2SAT 96
[2018-07-07 22:10] LABS: Anisocytosis 3+; Diff Comment Diff Reviewed; Macrocytosis 3+; Schistocytes 1+
[2018-07-07 22:14] LABS: Poikilocytes 2+
[2018-07-07 22:15] LABS: Nucleated RBC 1 /100WBC
[2018-07-08 03:20] VITALS: BP 112/65; PULSE 79; RESP 16; TEMP 37; O2SAT 93
[2018-07-08 05:52] VITALS: BP 110/81; PULSE 88; RESP 18; TEMP 37.2; O2SAT 93
--- NOTE | 2018-07-08 06:00 | DI.CT_ITS ---
SYMPTOM/DIAGNOSIS: PUNCTATE HYPODENSITY IN LT PARIETAL ON 1ST CT NONCONTRAST HEAD CT: Comparison is made with 07 Jul 2018. No intracranial hemorrhage, mass or infarct is seen. There is mild atrophy The ventricles are normal in size There is no evidence of skull fracture. IMPRESSION: No acute abnormality.
--- NOTE | 2018-07-08 06:19 | DI.VRAD_ITS ---
EXAM: CT Head Without Contrast EXAM DATE/TIME: 07/08/2018 4:23 AM CLINICAL HISTORY: 77 years old, male; Pain; Additional info: Punctate hypodensity in lt parietal on 1st CT TECHNIQUE: Axial computed tomography images of the head/brain without contrast. Coronal and sagittal reformatted images were created and reviewed. COMPARISON: CT Private^HEAD ROUTINE (Adult) 07/07/2018 8:59 PM FINDINGS: Brain: Mild age-related chronic microvascular changes are noted within the white matter. Ventricles: The ventricles and sulci are mildly prominent compatible with age-appropriate atrophy. Bones/joints: Normal. No acute fracture. Sinuses: Normal as visualized. No acute sinusitis. Mastoid air cells: Normal as visualized. No mastoid effusion. Orbits: Hypodense appearance to the left lens may reflect cataract. Soft tissues: Normal. IMPRESSION: Mild age-appropriate atrophy and chronic microvascular change. Dictated and Authenticated by: Jey Yarbrough MD. Ordering:SUSAN Katz MD
== END 2018-07-08 08:00 | disposition home or self-care (01) ==
PROVIDERS: Emergency Provider Emergency Medicine; PCP Family Medicine
DX: R41.0 Disorientation, unspecified (principal); R06.02 Shortness of breath; K64.8 Other hemorrhoids; Z79.01 Long term (current) use of anticoagulants; J81.1 Chronic pulmonary edema; C25.9 Malignant neoplasm of pancreas, unspecified
CPT/HCPCS: 36415; 80053; 99285; 70450; 71046; 83735; 85025; 85610; 85730; 99284

== ENCOUNTER 2018-07-13 20:26 | Inpatient (IN) | payer OTHER, SELFPAY ==
[2018-07-13 20:51] VITALS: BP 110/71; PULSE 96; RESP 22; TEMP 37.4; O2SAT 90
--- NOTE | 2018-07-13 21:11 | W.PM.HP.N ---
Date of service: 07/13/18 Assessment and Plan (1) Hospice care patient: Current visit: Yes Status: Ruled-out Admitted to hospice within this past week with pancreatic cancer, metastatic to liver and local lymph nodes--at least. Had biopsy done 06/27. Did not finish full work-up, per . (No PET scan done?) Handy and family et with oncologist Dr. Beltran. Initially considered taking chemotherapy, but performance ability too poor. PPS was 50%, maybe less. This afternoon, about 4:30 pm, said he suddenly became extremely weak and confused. This has happened before and he sought care at ER. No obvious reason for the mental change. Hospice nurse went to house to check on Handy. He was showing signs of hypoactive delirium. Treated with haldol x 2 and ativan x 1 and one low dose of morphine. Did not respond to these medications. Confused. Pulling at invisible objects in the air. Not directable. felt unsafe caring for him alone. Their sons live in [facility]. She cannot take care of him alone. She has not slept much since 06/24, when they first learned he had cancer. Given her inability to care for her , she elected to have him transported by ambulance to the hospital. Initially, I thought he would be admitted for symptom management. However, during my exam, he was calm, sleepy, non-verbal. He had some mottling of his legs. Cool feet. No apnea. No audible breathing. If he remains as respite patient only, he will need to be discharged on WednesdayJuly 18. For now, RESPITE admission. If he DECLINEs, will change to SYMPTOM MANAGEMENT. History of Present Illness Chief Complaint: pancreatic cancer, metastatic to liver; PEs, cerebral emboli, hospice respi Narrative: 77 yo man diagnosed with presumed pancreatic cancer 06/24/18 after presenting with bilateral PE with multiple emboli to lungs and brain. Had liver biopsy done 06/27 which showed metastatic pancreatic cancer. Pt and his family met with Dr. Beltran, oncology, who discussed chemotherapy vs hospice with Handy. Initially, Handy considered chemo but his performance status, particularly his mental clarity rapidly declined. Has been in the ER weekly x last month. This evening, called hospice nurse for Handy's worsening confusion. Has been to ER for same on 07/07. Handy did not respond to ativan or haldol. Does not appear to be in pain. No grimace, no moan, no furrowed brow. Not jaundiced. Not itchy. Hands and feet are cool. He is not talking at all during my exam. He did speak briefly to his nurse when the ambulance first brought him in. Note that he did receive morphine 5 mg, ativan 1 mg, and haldol x 2, each dose of 4 mg in the 3 hours prior to admission. He is now sleepy, lethargic. Note that he and his family elected for him to come on hospice as of 07/08, I believe. He is DNR/DNI. He is being admitted for respite as I cannot determine any unmet palliative care/comfort needs at the time of his admission. Review of Systems Review of Systems All systems reviewed & are unremarkable except as noted in HPI and below Constitutional Reports daytime sleepiness, Reports fatigue, Reports lethargy, Reports malaise, Reports weakness and Reports weight loss Eyes Reports dry eyes and Reports requires corrective lenses ENT Reports dry mouth Cardiovascular Reports rapid heart rate, Reports irregular heart rhythm and Reports dyspnea on exertion Respiratory Reports dyspnea on exertion Gastrointestinal Reports early satiety Genitourinary Reports urinary hesitancy Musculoskeletal Reports back pain and Reports muscle weakness Integumentary/Breasts Reports change in pigmentation Neurologic Reports abnormal speech, Reports behavioral changes, Reports confusion, Reports lack of coordination, Reports memory loss, Reports restless legs and Reports weakness Psychiatric Reports behavioral changes, Reports confusion, Reports memory loss and Reports hallucinations Endocrine Reports fatigue [facility] Medical History Delirium due to general medical condition (Acute) Pancreatic cancer metastasized to liver (Acute) Unintentional weight loss (Acute) CLL (chronic lymphocytic leukemia) (Acute) Hyperlipemia (Acute) CAD (coronary artery disease) (Chronic) Depression (Chronic) Myocardial infarction (Chronic) Peripheral vascular disease (Chronic) Pulmonary embolism (Chronic) Surgical History History of liver biopsy (Acute) H/O vasectomy (Acute) H/O shoulder surgery (Chronic) History of tonsillectomy (Chronic) Hx of CABG (Chronic) CARDIAC CATH Extraction of cataract (07/05/14) Repair of inguinal hernia Family History Mother Stroke Father Heart disease Brother Neoplasm Social History adopted: No caregiver/support person: Yes household members: spouse housing: house marital status: lives independently: Yes number of children: 2 assisted: No current occupational status: retired leisure activities: volunteer work well-balanced diet: about half the time eating out: rarely or never reads food labels: seldom or never Smoking/Tobacco Use Status: Former Tobacco Use Meds Home Medications Medication Instructions Recorded Confirmed Type nitroglycerin [Nitrostat] 1 tab SUBLINGUAL PRN #25 tab-cap 08/18/16 07/13/18 History enoxaparin 100 mg SUBCUT Q12H #60 syrg 06/22/18 07/13/18 Rx pantoprazole 40 mg PO DAILY@0730 #30 tab 06/22/18 07/13/18 Rx lorazepam [Ativan] 0.5 mg PO Q8H PRN #7 tab 07/03/18 07/07/18 Rx pramipexole 0.125 mg tablet 0.125 mg PO QPM #60 tab 07/06/18 07/13/18 Rx lactulose 30 ml PO BID 07/13/18 07/13/18 History Allergies Allergy/AdvReac Type Severity Reaction Status Date / Time pneumococcal vaccine Allergy Intermediate Local Verified 07/07/18 20:37 Rash, SOB Exam Const General: comfortable, no acute distress, well developed, ill appearing and lethargic Nutritional Appearance: average body habitus Orientation: awake and oriented to person Limitations: altered mental status [facility] Head: normocephalic and atraumatic Ears: external ears normal General nose exam: external nose normal and no nasal discharge Face and sinus: dry mucous membranes Mouth: lip normal Teeth and gingiva: dentures Eyes Conjunctivae: conjunctivae normal Sclera: sclerae normal Neck Neck: no lymphadenopathy and no JVD Resp Effort & Inspection: normal respiratory effort Auscultation: clear to auscultation bilaterally and diminished lung sounds Cardio Jugular venous pressure: no JVD Rate: tachycardic Rhythm: abnormal rhythm Heart Sounds: S1 normal and S2 normal GI Palpation: soft Auscultation: normal bowel sounds Skin General skin exam: dry skin and pallor Neuro General: awake Cognition: abnormal cognition Speech: abnormal speech and anomia Extrem General: cyanosis and edema Psych Appearance: grossly normal Speech and Movement: slowed movement and other (non-verbal on my exam) Thought Process: impoverished Insight: poor Judgment: poor Results Last Vital Signs Temp 99.3 F 07/13/18 20:51 Pulse 96 H 07/13/18 20:51 Resp 22 07/13/18 20:51 BP 110/71 07/13/18 20:51 Pulse Ox 90 L 07/13/18 20:51
[2018-07-13 21:21] VITALS: BP 110/71; PULSE 96; RESP 22; TEMP 37.4; O2SAT 90
[2018-07-14] MEDS: Pantoprazole 40 MG TABCR PO (08:48)
--- NOTE | 2018-07-14 09:33 | PHARADMIT ---
Addendum entered by Kennedi Trujillo 07/18/18 10:22: Hospice respite changed to symptom management; MD thinks pt is actively dying no VS or labs pain-3/10 atropine ordered SL PRN, scopolamine patch ordered, and morphine solution ordered SL PRN as pt having trouble swallowing per MD Original Note: Addendum entered by Cezar Sandoval III 07/15/18 11:40: Hospice patient here on respite. No VS No Labs Original Note: Admission Pharmacy Clinical Review HOSPICE RESPITE PATIENT, Pancreatic cancer with Liver mets VS-OK Has some delirium (Haldol & Ativan ordered). No pain medications ordered at this time.Pain:0/10 Patient to stay on respite till Jul 18.
--- NOTE | 2018-07-14 09:36 | PDOC.CMIN ---
- If Service Date Differs Date of service: 07/14/18 Time of Service: 09:36 Care Management Initial Assess REASON FOR HOSPITALIZATION:: Hospice admission for Respite/Pain Management PAST MEDICAL HISTORY/PAST SURGICAL HISTORY:: Delirium due to general medical condition (Acute). Pancreatic cancer metastasized to liver (Acute). Unintentional weight loss (Acute). CLL (chronic lymphocytic leukemia) (Acute). Hyperlipemia (Acute). CAD (coronary artery disease) (Chronic). Depression (Chronic). Myocardial infarction (Chronic). Peripheral vascular disease (Chronic). Pulmonary embolism (Chronic). History of liver biopsy (Acute). H/O vasectomy (Acute). H/O shoulder surgery (Chronic). History of tonsillectomy (Chronic). Hx of CABG (Chronic). CARDIAC CATH. Extraction of cataract (07/05/14). Repair of inguinal hernia PREVIOUS FUNCTIONAL STATUS/SOCIAL/FAMILY SUPPORTS:: Handy resides with his Milla in [place]. 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 Handy previously was independent with ADL's however has declined and his family is assisting him with ADL's in the community. CURRENT FUNCTIONAL STATUS:: Handy is lying in bed this morning resting. CM did not wake him this morning. ADVANCE DIRECTIVES:: None on file Has patient been provided with information about the portal?: No Did the patient sign up for the portal?: No CODE STATUS:: DNR/DNI INSURANCE COVERAGE / FINANCIAL ISSUES:: Hospice CURRENT HOME/COMMUNITY SERVICES/EQUIPMENT:: Currently Handy receives Hospice supports at home. All medical equipment has been ordered through Hospice PRIMARY CARE PHYSICIAN:: Dr. Florian POTENTIAL DISCHARGE NEEDS:: Return home on Hospice. transportation - ? ambulance PATIENT/FAMILY EDUCATION NEEDS:: Review DC instructions, any limitations, and ongoing DC planning discussion. Discuss 'Ask me three ANTICIPATED BARRIERS TO DISCHARGE:: None identified at this time TRANSPORTATION:: via ambulance PLAN:: Handy will return home on hospice when ready. He will most likely transport via ambulance. He is at [facility] for Respite at this time.
--- NOTE | 2018-07-14 10:36 | INITIAL_ITS ---
- If Service Date Differs Date of service: 07/14/18 Time of Service: 09:36 Care Management Initial Assess REASON FOR HOSPITALIZATION:: Hospice admission for Respite/Pain Management PAST MEDICAL HISTORY/PAST SURGICAL HISTORY:: Delirium due to general medical condition (Acute). Pancreatic cancer metastasized to liver (Acute). Unintentional weight loss (Acute). CLL (chronic lymphocytic leukemia) (Acute). Hyperlipemia (Acute). CAD (coronary artery disease) (Chronic). Depression (Chronic). Myocardial infarction (Chronic). Peripheral vascular disease (Chronic). Pulmonary embolism (Chronic). History of liver biopsy (Acute). H/O vasectomy (Acute). H/O shoulder surgery (Chronic). History of tonsillectomy (Chronic). Hx of CABG (Chronic). CARDIAC CATH. Extraction of cataract (07/05/14). Repair of inguinal hernia PREVIOUS FUNCTIONAL STATUS/SOCIAL/FAMILY SUPPORTS:: Handy resides with his Milla in [place]. 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 Handy previously was independent with ADL's however has declined and his family is assisting him with ADL's in the community. CURRENT FUNCTIONAL STATUS:: Handy is lying in bed this morning resting. CM did not wake him this morning. ADVANCE DIRECTIVES:: None on file Has patient been provided with information about the portal?: No Did the patient sign up for the portal?: No CODE STATUS:: DNR/DNI INSURANCE COVERAGE / FINANCIAL ISSUES:: Hospice CURRENT HOME/COMMUNITY SERVICES/EQUIPMENT:: Currently Handy receives Hospice supports at home. All medical equipment has been ordered through Hospice PRIMARY CARE PHYSICIAN:: Dr. Florian POTENTIAL DISCHARGE NEEDS:: Return home on Hospice. transportation - ? ambulance PATIENT/FAMILY EDUCATION NEEDS:: Review DC instructions, any limitations, and ongoing DC planning discussion. Discuss 'Ask me three ANTICIPATED BARRIERS TO DISCHARGE:: None identified at this time TRANSPORTATION:: via ambulance PLAN:: Handy will return home on hospice when ready. He will most likely transport via ambulance. He is at [facility] for Respite at this time.
[2018-07-14] MEDS: Nystatin POWDER 15 GM JAR TP ×2 (14:54→19:35)
--- NOTE | 2018-07-14 15:13 | CHAPLAIN ---
This morning I visited with Handy and his son Bryan. 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 Bryan had spent the night here and said his mom and brother would be in later. This afternoon Handy seemed more alert and responsive. His son Sherif and , Kimberly, are with him as well as Bryan. They all are very attentive to Handy. Kimberly is an active member of the [facility] [employer] and her linux solar[employer] administrator, Rev. Jeremy Palmer has been in to visit the family. Rev. Keara Bradley, a retired linux solar[employer] administrator from the same [employer]ri[employer], and family friend, has also been supportive and stayed with Jeremy at home so Kimberly could do errands. I let Kimberly, Bryan and Sherif know that there is always a under sheriff medical facilities section director here if needed.
[2018-07-14] MEDS: Senna TAB PO (19:35)
[2018-07-15] MEDS: LORazepam 1 MG TAB PO ×2 (00:40→20:14)
[2018-07-15] MEDS: Pantoprazole 40 MG TABCR PO (08:19)
[2018-07-15] MEDS: Nystatin POWDER 15 GM JAR TP ×2 (08:19→20:21)
--- NOTE | 2018-07-15 11:48 | PDOC.CMPRO ---
- If Service Date Differs Date of service: 07/15/18 Time of Service: 11:48 Care Management Progress Note S/O: CM met with Handy and his son Bryan this morning. Handy was lying in bed, and appeared comfortable, he states that his night was okay and he was able to get some sleep. Bryan states that the family is looking into placement at a private longterm in the community. They are interested in either [facility] ([facility] or [facility]. Bryan requests information in regards to DC. CM spoke with Dr. Rios whom states that the plan is to discharge Wednesday. Handy will require EMS transport to either Nataliia's or Marisa's private longterm which CM will facilitate. Dr. Rios would like notification of the private home that the family chooses, as she would like to speak with the caregiver. After CM met with Handy and Bryan, Kennedi [place], met with Handy's whom states that she has a friend whom is a nurse who would be able to assist at home. Therefore, at this time the discharge plan is either home with hospice and private family supports vs. DC to a private longterm in the community. A: 77 y/o male admitted 07/13/18 for hospice respite. P: Handy to remain in [facility] under Hospice for Respite until Wednesday. Handy to either DC home with continued hospice and a private family friend for support vs. transitioning to the private longterm of either Marisa Fisher ([facility]) or [facility]. Handy will transport via EMS which CM will arrange prior to DC.
--- NOTE | 2018-07-15 13:00 | CMPROGNOTE_ITS ---
- If Service Date Differs Date of service: 07/15/18 Time of Service: 11:48 Care Management Progress Note S/O: CM met with Handy and his son Bryan this morning. Handy was lying in bed, and appeared comfortable, he states that his night was okay and he was able to get some sleep. Bryan states that the family is looking into placement at a private alf in the community. They are interested in either Marisa Fisher ([facility]), or Natal[facility]. Bryan requests information in regards to DC. CM spoke with Dr. Rios whom states that the plan is to discharge Wednesday. Handy will require EMS transport to either Nataliia's or Marisa's private alf which CM will facilitate. Dr. Rios would like notification of the private home that the family chooses, as she would like to speak with the caregiver. After CM met with Handy and Bryan, Kennedi [facility], met with Handy's whom states that she has a friend whom is a nurse who would be able to assist at home. Therefore, at this time the discharge plan is either home with hospice and private family supports vs. DC to a private alf in the community. A: 77 y/o male admitted 07/13/18 for hospice respite. P: Handy to remain in [facility] under Hospice for Respite until Wednesday. Handy to either DC home with continued hospice and a private family friend for support vs. transitioning to the private alf of either Marisa Fisher ([facility]) or Natal[facility]. Handy will transport via EMS which CM will arrange prior to DC.
--- NOTE | 2018-07-15 15:05 | CHAPLAIN ---
I checked in with Handy this morning. He was sleeping, appeared comfortable. Bryan, one of Handy's sons spent the night here with Handy and said Handy spent some of the night sitting up on the edge of the, while Bryan rubbed his back. He believed Handy was thinking he had to go to the bathroom and forgetting he had a catheter in. Handy's Kimberly, is a member of the [facility], and her manager bakery, Rev. Jeremy Palmer has been in to see the family. Rev. Nati Bradley, a retired manager bakery from that [employer], has also been supporting the family. I will check in again today.
[2018-07-15] MEDS: Senna TAB PO (20:15)
[2018-07-16] MEDS: Pantoprazole 40 MG TABCR PO (07:40)
[2018-07-16] MEDS: Polyethylene Glycol 3350 17 GM PACKET PO (07:41)
[2018-07-16] MEDS: Nystatin POWDER 15 GM JAR TP ×2 (07:41→15:00)
[2018-07-16] MEDS: LORazepam 1 MG TAB PO ×3 (12:40→21:03)
[2018-07-17] MEDS: LORazepam 1 MG TAB PO (05:06)
--- NOTE | 2018-07-17 10:13 | PDOC.CMPRO ---
- If Service Date Differs Date of service: 07/17/18 Time of Service: 10:13 (]) Care Management Progress Note S/O: received a call from [facility] to confirm that Handy will transition to the [facility] on Wednesday morning. Per home health the spouse has been working with Kennedi Sigala to make arrangements for discharge. Spouse is requesting Handy be transported to the [place] home via ambulance which will be billed under his hospice benefit. Handy will need a hospital bed which is being coordinated by [facility]. to coordinate transportation. CM received confirmation from [facility] that the bed will be delivered to the [facility] today and Handy will be set for discharge on Wednesday. contacted and provided update of families choice. Ambulance will beed to be coordinated once a time is confined. A:A: 77 y/o male admitted 07/13/18 for hospice respite. P: Handy will be discharged to the [facility] on Wednesday. has been updated by [facility] and will arrange transportation. [facility] to coordinate equipments needs through hospice services.
--- NOTE | 2018-07-17 10:18 | CMPROGNOTE_ITS ---
- If Service Date Differs Date of service: 07/17/18 Time of Service: 10:13 (]) Care Management Progress Note S/O: received a call from [facility] to confirm that Hand[facility] will [facility] Wednesday morning. Per home health the spouse has been working with Kennedi Sigala to make arrangements for discharge. Spouse is requesting Handy be transported to the [facility] home via ambulance which will be billed under his hospice benefit. Handy will need a hospital bed which is being coordinated by [facility]. to coordinate transportation. CM received confirmation from [facility] that the bed will be delivered to the [facility] today and Handy will be set for discharge on Wednesday. contacted and provided update of families choice. Ambulance will beed to be coordinated once a time is confined. A:A: 77 y/o male admitted 07/13/18 for hospice respite. P: Handy will be discharged to the [facility] on Wednesday. has been updated by [facility] and will arrange transportation. [facility] to coordinate equipments needs through hospice services.
[2018-07-17] MEDS: Acetaminophen 650 MG SUPP PR (10:43)
[2018-07-17] MEDS: Nystatin POWDER 15 GM JAR TP ×3 (10:48→23:48)
[2018-07-17] MEDS: LORazepam 1 MG TAB 0.5 MG PO ×2 (12:47→23:47)
[2018-07-17] MEDS: Acetaminophen 500 MG TAB PO ×2 (17:22→23:47)
[2018-07-18] VITALS (7 sets, daily range): RESP 26–60
[2018-07-18] MEDS: Nystatin POWDER 15 GM JAR TP (07:41)
--- NOTE | 2018-07-18 09:36 | W.PM.PROGNOT ---
Date of Service Date of service: 07/18/18 Time of Service: 08:36 Assessment and Plan (1) Hospice care patient: Current visit: Yes Status: Ruled-out Handy was admitted here initially as respite for hospice. He has now changed to symptom management. He is having pain. Yesterday, we started with acetominophen. Now he is needing low-dose liquid morphine. He has hypoactive delirium. He has developed severe jaundice. He is reaching for objects. He has encephalopathy. We have called in his pastoral care support person, Nati Bradley. His sons and are with him. I think he has hours to days to live. His transfer to community-assisted has been canceled. (2) Pancreatic cancer metastasized to liver: Current visit: Yes Status: Acute (3) Acute liver failure: Current visit: Yes Status: Acute Qualifiers: Hepatic coma status: without hepatic coma Qualified Code(s): K72.00 - Acute and subacute hepatic failure without coma Subjective Patient reports: still having pain and nausea Interval history since last seen: Handy has changed significantly since I saw him last on Sunday 07/15. He is jaundiced. He is non-verbal. He is not eating or drinking. He has terminal delirium. He was supposed to go to [facility]'s community assisted today but he is now actively dying. I thought on Wednesday that he could have 1-2 weeks left to live. He now looks as if he has hours to days. His asked that Nati Bradley be called in to provide spiritual comfort. She has arrived. His children have been here daily. His is tired. 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 Exam Const General: cooperative, no acute distress, frail appearing and ill appearing Nutritional Appearance: average body habitus Orientation: awake Limitations: altered mental status [facility] Head: normocephalic and atraumatic Ears: hearing grossly normal bilaterally Face and sinus: dry mucous membranes Mouth: moist mucous membranes abnormal Eyes Sclera: scleral abnormality (jaundice) bilaterally Neck Neck: no lymphadenopathy Resp Effort & Inspection: normal respiratory effort Auscultation: diminished lung sounds Cardio Jugular venous pressure: no JVD Rate: tachycardic Heart Sounds: S1 normal and S2 normal GI Inspection: normal to inspection Palpation: soft Auscultation: hypoactive bowel sounds General: other (hsieh in place draining coca-cola colored urine) Penis: normal penis Skin General skin exam: dry skin, ecchymosis and jaundice Hair: male pattern alopecia Neuro General: awake and moves all extremities Cognition: abnormal cognition Speech: anomia Psych Appearance: disheveled Speech and Movement: mute and restless Mood: congruent mood Affect: normal affect Attitude: cooperative Objective Objective Clinical Data: Vital Signs Temperature 99.3 F 07/13/18 21:21 Pulse 96 H 07/13/18 21:21 Pulse Rhythm Regular 07/16/18 07:30 Respiratory Rate 22 07/13/18 21:21 Respiratory Effort Non-Labored 07/18/18 07:30 Respiratory Depth Normal 07/18/18 07:30 Respiratory Pattern Normal 07/18/18 07:30 Blood Pressure 110/71 07/13/18 21:21 Pulse Oximetry 90 L 07/13/18 21:21 Oxygen Delivery Method Room Air 07/13/18 21:21 Oxygen Flow Rate 0 07/13/18 21:21 Pain Level 0 07/18/18 07:30 Comment 07/13/18 21:21 Intake & Output 07/17/18 07/17/18 07/18/18 11:59 23:59 11:59 Intake Total 100 / 100 Output Total 300 / 600 300 / 600 550 / 550 Balance -300 / -500 -200 / -500 -550 / -550 Intake: Oral 100 / 100 Output: Urine 300 / 600 300 / 600 550 / 550 Other: Urine Color Dark Ruby Dark Ruby Dark Ruby Brown Brown Urine Appearance Clear Clear Clear Hematuria Mucous Threads Hematuria Hematuria
--- NOTE | 2018-07-18 09:38 | PDOC.CMPRO ---
- If Service Date Differs Date of service: 07/18/18 Time of Service: 09:38 Care Management Progress Note S/O: SINGH met with Dr. Rios this morning whom states that Handy is Jaundiced and having pain, therefore is transitioning to symptom management today. CM contacted Marisa Fisher, [facility], to update her that Handy will not DC to the [facility] today. Dr. Rios states that the family is requesting Nati Bradley, basin cleaner, whom Dr. Rios has notified. SINGH spoke with Chaplain Tena, to alert her of the above. A:A: 77 y/o male admitted 07/13/18 for hospice respite. P: [facility] once symptoms are managed. SINGH has been updated by [facility] and will arrange transportation. [facility] to coordinate equipments needs through hospice services.
--- NOTE | 2018-07-18 09:40 | PGE_ITS ---
Date of Service Date of service: 07/18/18 Time of Service: 08:36 Assessment and Plan (1) Hospice care patient: Current visit: Yes Status: Ruled-out Handy was admitted here initially as respite for hospice. He has now changed to symptom management. He is having pain. Yesterday, we started with acetominophen. Now he is needing low-dose liquid morphine. He has hypoactive delirium. He has developed severe jaundice. He is reaching for objects. He has encephalopathy. We have called in his pastoral care support person, Nati Bradley. His sons and are with him. I think he has hours to days to live. His transfer to [facility] has been canceled. (2) Pancreatic cancer metastasized to liver: Current visit: Yes Status: Acute (3) Acute liver failure: Current visit: Yes Status: Acute Qualifiers: Hepatic coma status: without hepatic coma Qualified Code(s): K72.00 - Acute and subacute hepatic failure without coma Subjective Patient reports: still having pain and nausea Interval history since last seen: Handy has changed significantly since I saw him last on Sunday 07/15. He is jaundiced. He is non-verbal. He is not eating or drinking. He has terminal delirium. He was supposed to go to [facility] today but he is now actively dying. I thought on Wednesday that he could have 1-2 weeks left to live. He now looks as if he has hours to days. His asked that Nati Bradley be called in to provide spiritual comfort. She has arrived. His children have been here daily. His is tired. She is relieved to have him here at [facility] as this is where he has volunteered for years. Exam Const General: cooperative, no acute distress, frail appearing and ill appearing Nutritional Appearance: average body habitus Orientation: awake Limitations: altered mental status [facility] Head: normocephalic and atraumatic Ears: hearing grossly normal bilaterally Face and sinus: dry mucous membranes Mouth: moist mucous membranes abnormal Eyes Sclera: scleral abnormality (jaundice) bilaterally Neck Neck: no lymphadenopathy Resp Effort & Inspection: normal respiratory effort Auscultation: diminished lung sounds Cardio Jugular venous pressure: no JVD Rate: tachycardic Heart Sounds: S1 normal and S2 normal GI Inspection: normal to inspection Palpation: soft Auscultation: hypoactive bowel sounds General: other (hsieh in place draining coca-cola colored urine) Penis: normal penis Skin General skin exam: dry skin, ecchymosis and jaundice Hair: male pattern alopecia Neuro General: awake and moves all extremities Cognition: abnormal cognition Speech: anomia Psych Appearance: disheveled Speech and Movement: mute and restless Mood: congruent mood Affect: normal affect Attitude: cooperative Objective Objective Clinical Data: Vital Signs Temperature 99.3 F 07/13/18 21:21 Pulse 96 H 07/13/18 21:21 Pulse Rhythm Regular 07/16/18 07:30 Respiratory Rate 22 07/13/18 21:21 Respiratory Effort Non-Labored 07/18/18 07:30 Respiratory Depth Normal 07/18/18 07:30 Respiratory Pattern Normal 07/18/18 07:30 Blood Pressure 110/71 07/13/18 21:21 Pulse Oximetry 90 L 07/13/18 21:21 Oxygen Delivery Method Room Air 07/13/18 21:21 Oxygen Flow Rate 0 07/13/18 21:21 Pain Level 0 07/18/18 07:30 Comment 07/13/18 21:21 Intake & Output 07/17/18 07/17/18 07/18/18 11:59 23:59 11:59 Intake Total 100 / 100 Output Total 300 / 600 300 / 600 550 / 550 Balance -300 / -500 -200 / -500 -550 / -550 Intake: Oral 100 / 100 Output: Urine 300 / 600 300 / 600 550 / 550 Other: Urine Color Dark Ruby Dark Ruby Dark Ruby Brown Brown Urine Appearance Clear Clear Clear Hematuria Mucous Threads Hematuria Hematuria
[2018-07-18] MEDS: Scopolamine 1 MG/3 DAYS PATCH TD (09:49)
--- NOTE | 2018-07-18 10:03 | CMPROGNOTE_ITS ---
- If Service Date Differs Date of service: 07/18/18 Time of Service: 09:38 Care Management Progress Note S/O: SINGH met with Dr. Rios this morning whom states that Handy is Jaundiced and having pain, therefore is transitioning to symptom management today. CM contacted Marisa Fisher, [facility], to update her that Handy will not DC to the [facility] today. Dr. Rios states that the family is requesting Nati Bradley, parking supervisor, whom Dr. Rios has notified. SINGH spoke with Chaplain Tena, to alert her of the above. A:A: 77 y/o male admitted 07/13/18 for hospice respite. P: Handy will be discharged to the [facility] once symptoms are managed. SINGH has been updated by [facility] and will arrange transportation. [facility] to coordinate equipments needs through hospice services.
--- NOTE | 2018-07-18 14:28 | CHAPLAIN ---
Handy's family requested that Rev. Nati Bradley be called in for them for support. 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 Dr. Rios called her and Nati spend most of the morning with Handy and his family. Handy's two sons, and now two grandchildren are with him. Kimberly spent the night. They have said they are pleased that Handy can stay here until he dies, as plans to discharge him to a community home have been cancelled as he needs more symptom management now. Handy's family is very attentive and supportive of Handy and have all spent a lot of time with him the past few days. 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
[2018-07-18] MEDS: LORazepam 1 MG TAB 0.5 MG PO ×2 (18:41→20:01)
[2018-07-18] MEDS: Acetaminophen 500 MG TAB PO (18:42)
[2018-07-18] MEDS: LORazepam 2 MG/ML VIAL 1 MG IM ×2 (20:19→21:05)
[2018-07-18] MEDS: MORPHine 1,000 MG in CADD PUMP CASSETTE 1 EACH, Normal Saline 80 ML 0.5 MG SC (20:47)
--- NOTE | 2018-07-18 21:50 | W.PM.DDS ---
Discharge Sum: Prov Provider Consults: 07/13/18 20:11 Casino Supervisor Consult [CONS] Routine Consultation Status:: Follow-up needed Clarification:: Manage/follow per spec. Reason for consult:: pt may be actively dying new diagnosis of pancreatic cancer rapid progression Discharge Sum: Diag Contributing Factors (1) Hospice care patient: (2) Pancreatic cancer metastasized to liver: (3) Acute liver failure:
--- NOTE | 2018-07-20 09:38 | CHAPLAIN ---
Kimberly asked if someone could stay with Handy while she attended [facility] (07/18). I arrived at 5:30 p.m. Shortly after the change of shift at 7 p.m. Handy began to work very hard at breathing and seemed uncomfortable. His nurse, Tonya worked with the Clinical Coordinator and spoke with Dr. Rios by phone to create a plan to elevate Handy's discomfort. He seemed more comfortable, but continued to show signs of his body shutting down. Kimberly returned at 9:00 p.m. and Handy about 9:15 p.m. I offered a prayer with Kimberly. Kimberly said she had made her peace with Handy earlier in the day, and was grateful for that. Her sons, Bryan and Sherif arrived shortly. When I left, Kimberly was planning to let nursing know that they would be leaving and the home could be called.
== END 2018-07-18 21:13 | disposition expired | DRG 435 ==
PROVIDERS: Admitting Provider Family Medicine; PCP Family Medicine; Visit Provider Family Medicine
DX: C25.9 Malignant neoplasm of pancreas, unspecified (principal); K72.00 Acute and subacute hepatic failure without coma; C78.7 Secondary malignant neoplasm of liver and intrahepatic bile duct; C77.9 Secondary and unspecified malignant neoplasm of lymph node, unspecified; G89.3 Neoplasm related pain (acute) (chronic); Z51.5 Encounter for palliative care; R41.0 Disorientation, unspecified; Z66 Do not resuscitate
CPT/HCPCS: 99223; 99233; 99239; J2060